=== PATIENT | female | born 1960 | race Caucasian/White ===

== ENCOUNTER → 2019-08-31 11:15 | Outpatient (BNVA) | payer BC, SELFPAY | PROVIDERS: Family Provider Family Medicine; PCP Family Medicine; Visit Provider Anesthesiology | DX: G89.29 Other chronic pain (principal); M54.5 Low back pain; M50.90 Cervical disc disorder, unspecified, unspecified cervical region; M79.651 Pain in right thigh; M79.652 Pain in left thigh; Z79.891 Long term (current) use of opiate analgesic | CPT/HCPCS: 99214 ==

== ENCOUNTER → 2019-10-30 12:11 | Outpatient (BNVA) | payer BC, SELFPAY | PROVIDERS: Family Provider Family Medicine; PCP Family Medicine; Visit Provider Psychiatry & Neurology Neurology | DX: G47.411 Narcolepsy with cataplexy (principal); G47.33 Obstructive sleep apnea (adult) (pediatric); G43.909 Migraine, unspecified, not intractable, without status migrainosus | CPT/HCPCS: 99213 ==

== ENCOUNTER 2020-01-03 20:00 | Outpatient (CLI) | payer BC, SELFPAY | END 2020-01-04 06:00 | disposition home or self-care (01) | LOC: SLEEP 01-04 09:44 | PROVIDERS: Family Provider Family Medicine; PCP Family Medicine; Visit Provider Psychiatry & Neurology Neurology | DX: G47.33 Obstructive sleep apnea (adult) (pediatric) (principal); G47.419 Narcolepsy without cataplexy | CPT/HCPCS: 95811 ==

== ENCOUNTER → 2020-02-01 12:53 | Outpatient (BNVA) | payer BC, SELFPAY | PROVIDERS: Family Provider Family Medicine; PCP Family Medicine; Visit Provider Psychiatry & Neurology Neurology | DX: G47.419 Narcolepsy without cataplexy (principal); G47.33 Obstructive sleep apnea (adult) (pediatric); G43.909 Migraine, unspecified, not intractable, without status migrainosus | CPT/HCPCS: 99213 ==

== ENCOUNTER → 2020-02-08 14:00 | Outpatient (BNVA) | payer BC, SELFPAY | PROVIDERS: Family Provider Family Medicine; PCP Family Medicine; Visit Provider Nurse Practitioner | DX: G89.29 Other chronic pain (principal); M54.41 Lumbago with sciatica, right side; M54.42 Lumbago with sciatica, left side; M25.562 Pain in left knee; T14.90XA Injury, unspecified, initial encounter; X58.XXXA Exposure to other specified factors, initial encounter; Z79.891 Long term (current) use of opiate analgesic | CPT/HCPCS: 99214 ==

== ENCOUNTER 2020-02-12 08:17 | Outpatient (CLI) | payer BC, SELFPAY ==
--- NOTE | 2020-02-12 08:00 | XRR_ITS ---
PROCEDURE INFORMATION: Exam: XR Left Knee Exam date and time: 02/12/2020 8:22 AM Age: 60 years old Clinical indication: Patient HX: Twisted left knee while standing in water, C/O pain x 1 month; Additional info: Pain left knee TECHNIQUE: Imaging protocol: XR Left knee. Views: 3 views. COMPARISON: No relevant prior studies available. FINDINGS: Bones/joints: Unremarkable Soft tissues: Normal. XR/XR knee LT 3V* [id number] IMPRESSION: No acute findings.
== END 2020-02-12 08:18 | disposition home or self-care (01) ==
LOC: RADWPI 08:20
PROVIDERS: Family Provider Family Medicine; PCP Family Medicine; Visit Provider Nurse Practitioner
DX: M25.562 Pain in left knee (principal)
CPT/HCPCS: 73562

== ENCOUNTER → 2020-04-17 10:56 | Outpatient (BNVA) | payer BC, SELFPAY | PROVIDERS: Family Provider Family Medicine; PCP Family Medicine; Visit Provider Nurse Practitioner | DX: G89.29 Other chronic pain (principal); M54.41 Lumbago with sciatica, right side; M54.42 Lumbago with sciatica, left side; M25.562 Pain in left knee; M50.90 Cervical disc disorder, unspecified, unspecified cervical region; T14.90XA Injury, unspecified, initial encounter; X58.XXXA Exposure to other specified factors, initial encounter; Z79.891 Long term (current) use of opiate analgesic | CPT/HCPCS: 99214 ==

== ENCOUNTER → 2020-06-13 10:56 | Outpatient (BNVA) | payer BC, SELFPAY | PROVIDERS: Family Provider Family Medicine; PCP Family Medicine; Visit Provider Anesthesiology | DX: G89.29 Other chronic pain (principal); M54.42 Lumbago with sciatica, left side; M54.41 Lumbago with sciatica, right side; M50.90 Cervical disc disorder, unspecified, unspecified cervical region; Z79.891 Long term (current) use of opiate analgesic | CPT/HCPCS: 99213; 99214 ==

== ENCOUNTER → 2020-08-12 14:10 | Outpatient (BNVA) | payer OTHER, SELFPAY | PROVIDERS: Family Provider Family Medicine; PCP Family Medicine; Visit Provider Specialist | DX: G47.419 Narcolepsy without cataplexy (principal) | CPT/HCPCS: 99214 ==

== ENCOUNTER → 2020-08-21 09:09 | Outpatient (BNVA) | payer OTHER, SELFPAY | PROVIDERS: Family Provider Family Medicine; PCP Family Medicine; Visit Provider Nurse Practitioner | DX: G89.29 Other chronic pain (principal); M54.5 Low back pain; M50.90 Cervical disc disorder, unspecified, unspecified cervical region; M25.562 Pain in left knee; T14.90XA Injury, unspecified, initial encounter; X58.XXXA Exposure to other specified factors, initial encounter; Z79.891 Long term (current) use of opiate analgesic | CPT/HCPCS: 99213; 99214 ==

== ENCOUNTER → 2020-10-16 09:10 | Outpatient (BNVA) | payer OTHER, SELFPAY | PROVIDERS: Family Provider Family Medicine; PCP Family Medicine; Visit Provider Anesthesiology | DX: G89.29 Other chronic pain (principal); M50.90 Cervical disc disorder, unspecified, unspecified cervical region; M54.5 Low back pain; Z79.891 Long term (current) use of opiate analgesic; Z79.1 Long term (current) use of non-steroidal anti-inflammatories (NSAID) | CPT/HCPCS: 99214 ==

== ENCOUNTER → 2020-12-24 08:25 | Outpatient (BNVA) | payer MEDICARE, SELFPAY | PROVIDERS: Family Provider Family Medicine; PCP Family Medicine; Visit Provider Specialist | DX: G47.419 Narcolepsy without cataplexy (principal) | CPT/HCPCS: 99213 ==

== ENCOUNTER → 2020-12-26 10:19 | Outpatient (BNVA) | payer MEDICARE, SELFPAY | PROVIDERS: Family Provider Family Medicine; PCP Family Medicine; Visit Provider Nurse Practitioner | DX: G89.29 Other chronic pain (principal); M54.5 Low back pain; M50.90 Cervical disc disorder, unspecified, unspecified cervical region; R20.2 Paresthesia of skin; Z98.1 Arthrodesis status; Z79.891 Long term (current) use of opiate analgesic | CPT/HCPCS: 99214 ==

== ENCOUNTER 2021-01-08 11:27 | Outpatient (CLI) | payer MEDICARE, SELFPAY ==
--- NOTE | 2021-01-08 11:38 | IR_ITS ---
WS: [id number] MYELOGRAM CERVICAL SPINE Fluoroscopic guided cervical myelogram CLINICAL INFORMATION: M50.90 - Cervical disc disorder, unspecified, unspecified... COMPARISON: None. TECHNIQUE: The procedure, including risks, benefits, and complications, were discussed with the patie nt who agreed to proceed. A timeout was performed to confirm correct patient, procedure, and site. Using sterile technique, the patient was prepped and draped in the usual sterile fashion. After admin istration of local anesthesia using 1% preservative-free lidocaine and using fluoroscopic guidance, a 22-gauge spinal needle was advanced into the subarachnoid space at the L4-5 level. Subsequently 12 c c of Omnipaque 300 was administered into the thecal sac. The needle was removed and hemostasis was ac hieved. Subsequently the table was tilted down and contrast flowed freely into the cervical spine. Sp ot fluoroscopic images were obtained. FLUOROSCOPIC TIME: minutes. Spot fluoroscopic images demonstrate postoperative changes anterior cervical fusion C4-C6 with interb cheo fusion grafts. Straightening of the normal cervical lordosis. Mild central canal stenosis C3-C4. Trace retrolisthesis C3 on C4. Normal C1-2 articulation. Cholecystectomy clips. No significant instab ility on flexion-extension. Please see CT myelogram report for additional detail. IR/IR myelogram sp cervical [id number] IMPRESSION: Uncomplicated cervical myelogram.Please see CT myelogram report for additional detail.
--- NOTE | 2021-01-08 11:38 | CT_ITS ---
WS: [id number] CT CERVICAL MYELOGRAM TECHNIQUE: CT of the cervical spine coronal and sagittal reformatted images post intrathecal administ ration of contrast. CLINICAL INFORMATION: M50.90 - Cervical disc disorder, unspecified, unspecified... COMPARISON: CT and myelogram January 23, 2015 DLP: 471.[address] scans at [facility] use at least one of these dose optimization techniques: automat ed exposure control; mA and/or kV adjustment per patient size (includes targeted exams where dose is matched to clinical indication); or iterative reconstruction. FINDINGS: Straightening of the normal cervical lordosis. Slight retrolisthesis C3 on C4. Postoperative changes anterior cervical fusion C4-C6 with interbody fusion grafts. Fusion appears solid with evidence of giuliana ny bridging beyond the confines of the grafts. No evidence of hardware loosening. C2-C3: No significant disc bulging. Spinal canal and foramen are patent. C3-C4: Slight retrolisthesis C3 on C4. Tiny shallow central protrusion. Mild central canal stenosis. Mild left and no significant right foraminal narrowing. C4-C5: Prior postoperative changes anterior interbody fusion. Mild right and no significant left fora freedom narrowing. Mild facet arthropathy. Spinal canal is patent. C5-C6: Postoperative changes anterior interbody cervical fusion. Mild to moderate bilateral bony fora freedom narrowing left greater than right. Mild facet arthropathy. Spinal canal is patent. C6-C7: Postoperative changes anterior cervical fusion. Moderate to severe left and no significant rig ht foraminal narrowing. Impingement on the exiting left C7 nerve root. Spinal canal is patent. C7-T1: Minimal anterolisthesis C7 on T1. Mild left and no significant right foraminal narrowing. Spin al canal is patent. Lung apices are well aerated. Mastoid air cells are well aerated. CT/CT cervical spine w con [id number] IMPRESSION: 1. Straightening of the normal cervical lordosis with prior anterior cervical fusion C4-C6. Hardware appears well seated. No evidence of hardware loosening. 2. Mild central canal stenosis C3-C4 with a tiny shallow central protrusion sl ightly progressed since 2014 3. Disc space narrowing C6-7 progressed since 2014 with moderate to severe lef t foraminal narrowing. Recommend correlation for LEFT C7 NERVE ROOT SYMPTOMS. 4. Mild to moderate bilateral C5-C6 bony foraminal narrowing with mild facet a rthropathy. 5. Mild left C7-T1 bony foraminal narrowing.
[2021-01-08] MEDS: iohexol 300 mg/mL 50 mL Btl INTRATHECA (13:59)
== END 2021-01-08 11:28 | disposition home or self-care (01) ==
PROVIDERS: PCP Family Medicine; Visit Provider Nurse Practitioner
DX: M50.90 Cervical disc disorder, unspecified, unspecified cervical region (principal); M47.812 Spondylosis without myelopathy or radiculopathy, cervical region; M48.02 Spinal stenosis, cervical region
CPT/HCPCS: 62302; 72040; 72126

== ENCOUNTER → 2021-01-14 08:48 | Outpatient (BNVA) | payer MEDICARE, SELFPAY | PROVIDERS: PCP Family Medicine; Referring Provider Nurse Practitioner; Visit Provider Orthopaedic Surgery | DX: G54.2 Cervical root disorders, not elsewhere classified (principal); M54.5 Low back pain; Z98.1 Arthrodesis status; M54.2 Cervicalgia | CPT/HCPCS: 72050; 72110 ==

== ENCOUNTER 2021-01-24 08:04 | Outpatient (CLI) | payer MEDICARE, SELFPAY ==
--- NOTE | 2021-01-24 08:09 | MR_ITS ---
WS: [id number] MRI LUMBAR SPINE NONCONTRAST HISTORY: LOW BACK PAIN COMPARISON: 07/25/[address] lumbar spine 01/06/2017 TECHNIQUE: Sagittal and axial multisequence imaging is submitted. Prior cervical fusion hardware is noted. Normal lumbar alignment with no compression fractures or marrow edema. Less than 2 mm anterolisthesis of L4. Disc spaces and vertebral body heights are well-preserved. Conus terminates normally at L1-2 disc level. L1-L2: Normal. L2-L3: Mild annular disc bulging contacting the L3 nerve roots with no displacement. Small amount of fluid in the LEFT facet joint. L3-L4: No significant stenosis. Very slight narrowing of the foramina. L4-L5: Mild annular disc bulging with moderate ligamentum flavum disease and facet arthritis. Mild en croachment into the thecal sac. Mild central and subarticular recess stenosis. There is very slight d isc contact on the undersurface of the RIGHT L4 nerve root. L5-S1: Slight disc bulging. No stenosis. Mild bilateral facet joint arthritis. MR/MR lumbar spine wo con* [id number] IMPRESSION: 1. Mild central and subarticular recess stenosis at L4-5 due to mild disc bulg ing. Minimal disc contact on the RIGHT L4 nerve root. 2. Mild facet joint arthritis from L2-3 to L5-S1. 3. No high-grade central or foraminal stenosis.
== END 2021-01-24 08:05 | disposition home or self-care (01) ==
PROVIDERS: PCP Family Medicine; Visit Provider Orthopaedic Surgery
DX: G89.29 Other chronic pain (principal); M54.5 Low back pain; M54.2 Cervicalgia; Z79.891 Long term (current) use of opiate analgesic
CPT/HCPCS: 62321; 72148; J1100

== ENCOUNTER → 2021-02-17 16:33 | Outpatient (BNVA) | payer MEDICARE, SELFPAY | PROVIDERS: PCP Family Medicine; Visit Provider Nurse Practitioner Family | DX: Z20.822 Contact with and (suspected) exposure to COVID-19 (principal); J06.9 Acute upper respiratory infection, unspecified | CPT/HCPCS: 87635 ==

== ENCOUNTER → 2021-02-20 09:17 | Outpatient (BNVA) | payer MEDICARE, SELFPAY | PROVIDERS: PCP Family Medicine; Visit Provider Nurse Practitioner | DX: G89.29 Other chronic pain (principal); M54.5 Low back pain; M50.90 Cervical disc disorder, unspecified, unspecified cervical region; Z98.1 Arthrodesis status; Z79.891 Long term (current) use of opiate analgesic | CPT/HCPCS: 99214 ==

== ENCOUNTER → 2021-03-25 09:03 | Outpatient (BNVA) | payer MEDICARE, SELFPAY | PROVIDERS: PCP Family Medicine; Visit Provider Specialist | DX: G47.419 Narcolepsy without cataplexy (principal) | CPT/HCPCS: 99214 ==

== ENCOUNTER → 2021-04-18 09:33 | Outpatient (BNVA) | payer MEDICARE, SELFPAY | PROVIDERS: PCP Family Medicine; Visit Provider Nurse Practitioner | DX: G89.29 Other chronic pain (principal); M54.5 Low back pain; M50.90 Cervical disc disorder, unspecified, unspecified cervical region; G43.909 Migraine, unspecified, not intractable, without status migrainosus; Z98.1 Arthrodesis status; Z79.891 Long term (current) use of opiate analgesic | CPT/HCPCS: 99213 ==

== ENCOUNTER 2021-05-19 21:09 | Emergency (ER) | payer MEDICARE, SELFPAY ==
--- NOTE | 2021-05-19 21:12 | ECG_ITS ---
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 Measurements Intervals [place] Rate: 71 P: 72 AK: 146 QRS: 46 QRSD: 88 T: 48 QT: 381 QTc: 414 Interpretive Statements SINUS RHYTHM No previous ECG available for comparison Electronically Signed On 05-19-2021 23:51:46 CDT by Celestine Morris M.D. [id number]
--- NOTE | 2021-05-19 21:12 | XRR_ITS ---
PROCEDURE INFORMATION: Exam: XR Chest Exam date and time: 05/19/2021 9:12 PM Age: 61 years old Clinical indication: Sternal or substernal pain; Patient HX: Cp x 2days TECHNIQUE: Imaging protocol: XR of the chest. Views: 1 view. Total images: 1 COMPARISON: CR XR cervical spine 4-5V [id number] 01/14/2021 8:55 AM FINDINGS: Lungs: No visible active interstitial or alveolar airspace disease. Pleural spaces: Unremarkable. No pleural effusion. No pneumothorax. Heart/Mediastinum: Unremarkable. No cardiomegaly. Bones/joints: Previous cervical fusion. XR/XR chest 1V portable [id number] IMPRESSION: Nonacute. Radiation Dose CTDIVOL = (mGy): DLP = (mGy-cm)
[2021-05-19 21:20] VITALS: BP 164/104; PULSE 71; RESP 18; TEMP 36.3; O2SAT 100; BMI 30.4
--- NOTE | 2021-05-19 21:47 | W.ED.CHESTPA ---
HPI - Chest Pain General: Chief Complaint: Chest Pain Stated Complaint: chest pain x 2 days, reaction to meds Time Seen by Provider: 05/19/21 21:35 Source: patient Mode of arrival: ambulatory Limitations: no limitations History of Present Illness: HPI narrative: 61-year-old female who states she has been having intermittent chest pain since Wednesday. States pains been a pressure type pain center of her chest some slight dyspnea. She denies any worsening improving factors. States she has started a medicine she thinks she may be having a reaction to she started a little over 10 days ago for sleeping. No history of heart disease she does have a history of high blood pressure denies history of cholesterol problems she is not a smoker. States her pain currently is a 4 out of 10 denies any worsening improving factors. Associated symptoms: Reports dyspnea; Deny abdominal pain, fever(s), nausea or vomiting Review of Systems Const: Denies: fever(s), chills, body aches or change in appetite Eyes: Denies: blurry vision or eye discomfort ENMT: Denies: throat pain or dental pain Card: Reports: chest pain Resp: Reports: dyspnea GI: Denies: abdominal pain, nausea, vomiting or diarrhea : Denies: dysuria Musc: Denies: neck pain or back pain Skin/Breast: Denies: rash Neuro: Denies: headache(s) Psych: Denies: depression Arcadio/Lymph: Denies: easy bruising All/Imm: Denies: urticaria PFSH ED PFSH: Medical History Cervical disc disease Chronic lumbosacral pain Encounter for long-term use of opiate analgesic Opioid contract exists Surgical History H/O neck surgery Fusion H/O tubal ligation History of hysterectomy Family History Other COPD (chronic obstructive pulmonary disease) Cancer Hypertension Social History Smoking and tobacco status: never smoked Second hand smoke exposure: No Alcohol intake: never History of recent travel: No Physical Exam Const: COMMON NORMALS: no acute distress, patient oriented x3 and healthy appearing HENMT: COMMON NORMALS: normocephalic and atraumatic HEAD & SCALP: normocephalic and atraumatic Eye: COMMON NORMALS: Equal, round and reactive pupils present and EOMs intact bilaterally PUPIL: Yes Equal, round and reactive pupils present Neck/C-Spine: COMMON NORMALS: full ROM and supple Chest: COMMONS NORMALS: normal inspection of the chest and normal palpation of entire chest wall Resp: COMMON NORMALS: normal respiratory effort, No retractions, No use of accessory muscles and clear to auscultation bilaterally AUSCULTATION: clear to auscultation bilaterally Cardio: COMMON NORMALS: regular rate, regular rhythm and No murmurs present (Cardio) RATE: regular rate RHYTHM: regular rhythm GI: COMMON NORMALS: Normal to inspection, nondistended, normoactive bowel sounds present, Soft to palpation, non-tender and no masses PALPATION: Yes Soft to palpation Extremity: COMMON NORMALS: normal to inspection and full ROM Neuro: COMMON NORMALS: patient oriented x3, moves all extremities and no focal motor deficits Psych: COMMON NORMALS: mental status grossly normal, Normal thought process present and cooperative THOUGHT PROCESS: Normal thought process present Skin: COMMON NORMALS: no rashes or lesions noted and no wounds GENERAL SKIN EXAM: no rashes or lesions noted Course Vital Signs: Vital signs: Vital Signs Temperature 97.4 F L 05/19/21 21:20 Pulse Rate 61 05/19/21 23:22 Respiratory Rate 18 05/19/21 23:22 Blood Pressure 136/80 05/19/21 23:22 Pulse Oximetry 95 05/19/21 23:22 MDM - Chest Pain MDM Narrative: Medical decision making narrative: Patient presents with chest pains atypical in nature. Troponins and D-dimer are both negative she has no signs of acute coronary syndrome. She is to stop her medicine she has an appointment scheduled this week. She is to follow-up with her PCP as scheduled return if worsening she understands agrees to plan. Lab Data: Labs: Lab Results 05/19/21 05/19/21 05/19/21 21:49 21:49 21:49 WBC 5.8 10^3/uL 10^3/ uL (4.0-10.0) RBC 4.38 10^6/uL 10^6 /uL (4.1-5.3) Hgb 13.4 g/dL g/dL (11.5-15.3) Hct 41.8 % % (37.0-47.0) MCV 95.4 fl fl (81-99) MCH 30.6 pg pg (28.0-34.0) MCHC 32.1 g/dL g/dL (30.0-36.0) RDW 13.2 % % (12.1-15.1) Plt Count 181 10^3/cmm 10^3 /cmm (130-400) MPV 9.6 fL fL (7.4-10.4) Neut % (Auto) 53.6 % % Lymph % (Auto) 31.9 % % Fisher % (Auto) 11.6 % % Eos % (Auto) 1.7 % % Baso % (Auto) 1.0 % % Neut # (Auto) 3.11 10^3/uL 10^3 /uL (1.8-7.7) Lymph # (Auto) 1.9 10^3/uL 10^3/ uL (0.8-4.8) Fisher # (Auto) 0.7 10^3/uL 10^3/ uL (0.2-0.9) Eos # (Auto) 0.1 10^3/uL 10^3/ uL (0.0-0.8) Baso # (Auto) 0.1 10^3/uL 10^3/ uL (0.0-0.1) Nucleated RBC % (a uto) 0 % % Nucleated RBCs # 0.0 /100WBC /100W BC D-Dimer Sodium 141 mmol/L mmol/L (136-145) Potassium 4.3 mmol/L mmol/L (3.5-5.1) Chloride 104 mmol/L mmol/L (98-107) Carbon Dioxide 29 mmol/L mmol/L (22-29) Anion Gap 12.3 (5-19) BUN 19 mg/dL mg/dL (8-23) Creatinine 1.1 mg/dL H mg/dL (0.5-0.9) GFR Calculation 50.5 mL/min L mL/ min (90-130) Glucose 87 mg/dL mg/dL (65-115) Calculated Osmolal ity 294 mOsm/kg mOsm/ kg (285-295) Calcium 9.7 mg/dL mg/dL (8.5-10.5) Total Bilirubin 0.3 mg/dL mg/dL (0.15-1.2) AST 11 U/L U/L (0-32) ALT 11 U/L U/L (0-33) Alkaline Phosphata se 80 IU/L IU/L (35-105) Troponin T Baselin e 6 ng/L ng/L (0-10) Troponin T 120 Min [place] Delta Troponin T Total Protein 7.3 g/dL g/dL (6.6-8.7) Albumin 4.3 g/dL g/dL (3.5-5.2) Globulin 3.0 g/dL g/dL (1.3-4.6) 05/19/21 05/19/21 21:49 23:29 WBC RBC Hgb Hct MCV MCH MCHC RDW Plt Count MPV Neut % (Auto) Lymph % (Auto) Fisher % (Auto) Eos % (Auto) Baso % (Auto) Neut # (Auto) Lymph # (Auto) Fisher # (Auto) Eos # (Auto) Baso # (Auto) Nucleated RBC % (a uto) Nucleated RBCs # D-Dimer 0.39 ug/mIFEU ug/ mIFEU (0-0.59) Sodium Potassium Chloride Carbon Dioxide Anion Gap BUN Creatinine GFR Calculation Glucose Calculated Osmolal ity Calcium Total Bilirubin AST ALT Alkaline Phosphata se Troponin T Baselin e Troponin T 120 Min [place] 6.00 ng/L ng/L (0-10) Delta Troponin T 0 ABS# ABS# (0-10) Total Protein Albumin Globulin Imaging Data^: CXR: Attestation: I personally reviewed and interpreted this imaging study as follows: My impression: no acute abnormality EKG Data^: EKG 1: Attestation: I personally reviewed and interpreted this EKG as follows: EKG interpretation date: 05/19/21 EKG interpretation time: 21:18 Interpretation: nsr hr [address] or t wave abnormalities qrs 88 qtc 403 Discharge Plan Discharge Patient Disposition: Home Clinical Impression: Chest pain Qualifiers: Chest pain type: unspecified Qualified Code(s): R07.9 - Chest pain, unspecified Condition: Stable Prescriptions: No Action hydrochlorothiazide 25 mg tablet 25 mg PO DAILY RF: 0 Excedrin Migraine 250-250-65 mg tablet 1 tab PO Q6H PRNRF: 0 gabapentin 600 mg tablet 600 mg PO TID 90 Days Qty: 270 RF: 1 meloxicam [Mobic] 15 mg tablet 15 mg PO DAILY 90 Days Qty: 90 RF: 1 tizanidine 4 mg tablet 4 mg PO TID PRN (Reason: muscle spasticity) 90 Days Qty: 270 RF: 1 Xyrem 500 mg/mL solution See Rx Instructions PO BID Qty: 180 RF: 2 hydrocodone-acetaminophen 10-325 mg tablet 1 tab PO QID PRN (Reason: pain) 30 Days Qty: 120 RF: 0 hydrocodone-acetaminophen 10-325 mg tablet 1 tab PO Q6H PRN (Reason: pain) 30 Days Qty: 120 RF: 0 venlafaxine 75 mg tablet 75 mg PO BID Qty: 180 RF: 3 topiramate [Topamax] 100 mg tablet 100 mg PO BID Qty: 120 RF: 2 propranolol 80 mg capsule,extended release 24 hr 80 mg PO DAILY Qty: 90 RF: 3 pitolisant 17.8 mg tablet 35.6 mg PO DAILY Qty: 60 RF: 5 methylphenidate HCl [Concerta] 54 mg tablet extended release 24hr 54 mg PO DAILY 30 Days Qty: 30 RF: 0 Discharge Orders: Discharge ED (Routine); Ordered 05/20/21 Ordered By: Reed Ríos Referrals: Kyle Jenkins MD [Primary Care Provider] - 1-3 days Discharge Diet: Advance as tolerated Discharge Activity: Resume usual activity Patient Instructions: Chest Pain (ED) Coding Level of Care Code ED 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
[2021-05-19 22:00] LABS: Basophils # 0.1 10^3/uL (0.0-0.1); Eosinophils # 0.1 10^3/uL (0.0-0.8); Eosinophils % 1.7 %; Hematocrit 41.8 % (37.0-47.0); Hemoglobin 13.4 g/dL (11.5-15.3); Lymphocytes # 1.9 10^3/uL (0.8-4.8); Lymphocytes % 31.9 %; Mean Corpuscular HGB Conc 32.1 g/dL (30.0-36.0); Mean Corpuscular Hemoglobin 30.6 pg (28.0-34.0); Mean Corpuscular Volume 95.4 fl (81-99); Mean Platelet Volume 9.6 fL (7.4-10.4); Monocytes # 0.7 10^3/uL (0.2-0.9); Monocytes % 11.6 %; Neutrophils # 3.11 10^3/uL (1.8-7.7); Neutrophils % 53.6 %; Nucleated Red Blood Cells % 0 %; Platelet Count 181 10^3/cmm (130-400); Red Blood Count 4.38 10^6/uL (4.1-5.3); Red Cell Distribution Width 13.2 % (12.1-15.1); White Blood Count 5.8 10^3/uL (4.0-10.0)
[2021-05-19 22:05] VITALS: RESP 20; O2SAT 95
[2021-05-19] MEDS: morphine 4 mg/mL SDV 1 mL IVP (22:05)
[2021-05-19] MEDS: ondansetron 2 mg/ML SDV 2 mL 4 MG IVP (22:06)
[2021-05-19 22:11] VITALS: BP 130/70; PULSE 82; RESP 18; O2SAT 95
[2021-05-19 22:14] LABS: D Dimer 0.39 ug/mIFEU (0-0.59)
[2021-05-19 22:17] LABS: Troponin(5th) Baseline 6 ng/L (0-10)
[2021-05-19 22:18] LABS: Alanine Aminotransferase 11 U/L (0-33); Albumin Level 4.3 g/dL (3.5-5.2); Alkaline Phosphatase 80 IU/L (35-105); Anion Gap 12.3 (5-19); Aspartate Amino Transferase 11 U/L (0-32); Blood Urea Nitrogen 19 mg/dL (8-23); Calcium 9.7 mg/dL (8.5-10.5); Carbon Dioxide 29 mmol/L (22-29); Chloride 104 mmol/L (98-107); Glomerular Filtration Rate 50.5 mL/min (90-130); Glucose 87 mg/dL (65-115); Osmolality Calculated 294 mOsm/kg (285-295); Potassium 4.3 mmol/L (3.5-5.1); Sodium 141 mmol/L (136-145); Total Bilirubin 0.3 mg/dL (0.15-1.2); Total Protein 7.3 g/dL (6.6-8.7)
[2021-05-19 23:22] VITALS: BP 136/80; PULSE 61; RESP 18; O2SAT 95
[2021-05-20 00:09] LABS: Troponin 5 2HR Delta 0 ABS# (0-10)
[2021-05-20 00:41] VITALS: BP 130/80; PULSE 82; RESP 18; O2SAT 95
== END 2021-05-20 00:45 | disposition home or self-care (01) ==
PROVIDERS: Emergency Provider Emergency Medicine; PCP Family Medicine
DX: R07.89 Other chest pain (principal); Z79.891 Long term (current) use of opiate analgesic
CPT/HCPCS: 36415; 71045; 80053; 84484; 85025; 85378; 93005; 96374; 96375; 99284; J2270; J2405

== ENCOUNTER → 2021-06-10 10:49 | Outpatient (BNVA) | payer MEDICARE, SELFPAY | PROVIDERS: PCP Family Medicine; Visit Provider Specialist | DX: G47.411 Narcolepsy with cataplexy (principal) | CPT/HCPCS: 99214 ==

== ENCOUNTER → 2021-06-20 09:46 | Outpatient (BNVA) | payer MEDICARE, SELFPAY | PROVIDERS: PCP Family Medicine; Visit Provider Anesthesiology | DX: G89.29 Other chronic pain (principal); M54.50 Low back pain, unspecified; M50.90 Cervical disc disorder, unspecified, unspecified cervical region; Z98.1 Arthrodesis status; Z79.1 Long term (current) use of non-steroidal anti-inflammatories (NSAID); Z79.891 Long term (current) use of opiate analgesic | CPT/HCPCS: 99214 ==

== ENCOUNTER → 2021-09-02 11:11 | Outpatient (BNVA) | payer MEDICARE, SELFPAY | PROVIDERS: PCP Family Medicine; Visit Provider Anesthesiology | DX: G89.29 Other chronic pain (principal); M50.90 Cervical disc disorder, unspecified, unspecified cervical region; M54.50 Low back pain, unspecified; Z79.891 Long term (current) use of opiate analgesic | CPT/HCPCS: 99214 ==

== ENCOUNTER → 2021-09-08 09:07 | Outpatient (BNVA) | payer MEDICARE, SELFPAY | PROVIDERS: PCP Family Medicine; Visit Provider Specialist | DX: G47.411 Narcolepsy with cataplexy (principal); G43.909 Migraine, unspecified, not intractable, without status migrainosus; G47.33 Obstructive sleep apnea (adult) (pediatric); M50.90 Cervical disc disorder, unspecified, unspecified cervical region; M54.50 Low back pain, unspecified; G89.29 Other chronic pain; Z98.1 Arthrodesis status; Z79.891 Long term (current) use of opiate analgesic | CPT/HCPCS: 99205 ==

== ENCOUNTER → 2021-12-11 14:40 | Outpatient (BNVA) | payer MEDICARE, SELFPAY | PROVIDERS: PCP Family Medicine; Visit Provider Specialist | DX: G47.419 Narcolepsy without cataplexy (principal); G43.009 Migraine without aura, not intractable, without status migrainosus; G31.84 Mild cognitive impairment of uncertain or unknown etiology; Z79.899 Other long term (current) drug therapy | CPT/HCPCS: 99214 ==

== ENCOUNTER → 2022-03-16 15:25 | Outpatient (BNVA) | payer MEDICARE, SELFPAY | PROVIDERS: PCP Family Medicine; Visit Provider Specialist | DX: G47.419 Narcolepsy without cataplexy (principal); G31.84 Mild cognitive impairment of uncertain or unknown etiology | CPT/HCPCS: 99214 ==

== ENCOUNTER → 2022-06-16 09:18 | Outpatient (BNVA) | payer MEDICARE, SELFPAY | PROVIDERS: PCP Family Medicine; Visit Provider Specialist | DX: G47.419 Narcolepsy without cataplexy (principal); R63.5 Abnormal weight gain; T50.905A Adverse effect of unspecified drugs, medicaments and biological substances, initial encounter; G43.019 Migraine without aura, intractable, without status migrainosus; Z68.35 Body mass index [BMI] 35.0-35.9, adult; Z79.891 Long term (current) use of opiate analgesic | CPT/HCPCS: 99214 ==

== ENCOUNTER → 2022-10-13 09:46 | Outpatient (BNVA) | payer MEDICARE, SELFPAY | PROVIDERS: PCP Family Medicine; Visit Provider Specialist | DX: G47.419 Narcolepsy without cataplexy (principal); G43.909 Migraine, unspecified, not intractable, without status migrainosus; Z79.899 Other long term (current) drug therapy | CPT/HCPCS: 99213 ==

== ENCOUNTER → 2023-01-12 12:20 | Outpatient (BNVA) | payer MEDICARE, SELFPAY | PROVIDERS: PCP Family Medicine; Visit Provider Specialist | DX: G47.419 Narcolepsy without cataplexy (principal) | CPT/HCPCS: 99214 ==

== ENCOUNTER 2023-01-25 13:31 | Outpatient (CLI) | payer MEDICARE, SELFPAY ==
--- NOTE | 2023-01-25 13:36 | XRR_ITS ---
PROCEDURE INFORMATION: Exam: XR Right Knee Exam date and time: 01/25/2023 1:41 PM Age: 62 years old Clinical indication: Injury or trauma; Fall; Blunt trauma; Knee; Right; Injury date: 01/22/23; Additional info: Fall/ pain TECHNIQUE: Imaging protocol: Radiologic exam of the right knee. Views: 3 views. COMPARISON: No relevant prior studies available. FINDINGS: Bones/joints: Normal. Soft tissues: Normal. XR/XR knee RT 3V* [id number] IMPRESSION: No acute findings.
== END 2023-01-25 13:32 | disposition home or self-care (01) ==
LOC: RAD 13:34
PROVIDERS: PCP Family Medicine; Visit Provider Family Medicine
DX: M25.561 Pain in right knee (principal)
CPT/HCPCS: 73562

== ENCOUNTER 2023-02-02 13:35 | Outpatient (CLI) | payer MEDICARE, SELFPAY ==
--- NOTE | 2023-02-02 15:15 | MR_ITS ---
WS: [id number] MRI RIGHT KNEE NONCONTRAST TECHNIQUE: Axial PD, coronal PD fat sat, coronal PD, sagittal PD, and sagittal PD fat-sat images obta ined. CLINICAL INFORMATION: knee injury/ severe pain/ bruising COMPARISON: None. FINDINGS: Diffuse soft tissue edema with mixed signal lobulated hematoma in the prepatellar and infrapatellar s oft tissues. Small suprapatellar effusion. Distal quadriceps and patella tendons are intact. Normal A CL and PCL. Moderate tricompartmental arthritis. Moderate chondromalacia patella. No subchondral edema. Medial an d lateral patellar retinaculum are intact. Normal popliteal fossa. Medial and lateral collateral liga ments appear intact. Lateral meniscus is intact. Radial tear involving the medial meniscus with blunting of the anterior h orn. Slight peripheral extrusion of the medial meniscus. MR/MR knee RT wo con* [id number] IMPRESSION: 1. Diffuse lobulated subcutaneous mixed signal hematoma in the prepatellar and infrapatellar soft tissues. 2. No acute appearing patellar fractures. 3. Normal ACL and PCL. 4. Radial type tear involving the medial meniscus with blunting of the posteri or horn. Slight peripheral extrusion of the medial meniscus. 5. Moderate tricompartmental chondromalacia. 6. No other acute findings. Outbridge grading: grade III: partial-thickness cartilage loss with focal ulcer ation
== END 2023-02-02 13:36 | disposition home or self-care (01) ==
PROVIDERS: PCP Family Medicine; Visit Provider Family Medicine
DX: S83.241A Other tear of medial meniscus, current injury, right knee, initial encounter (principal); S80.01XA Contusion of right knee, initial encounter; X58.XXXA Exposure to other specified factors, initial encounter; M94.261 Chondromalacia, right knee; M25.561 Pain in right knee
CPT/HCPCS: 73721

== ENCOUNTER → 2023-02-16 14:45 | Outpatient (BNVA) | payer MEDICARE, SELFPAY | PROVIDERS: PCP Family Medicine; Referring Provider Family Medicine; Visit Provider Student in an Organized Health Care Education/Training Program | DX: S83.241A Other tear of medial meniscus, current injury, right knee, initial encounter (principal); M79.89 Other specified soft tissue disorders; S80.01XA Contusion of right knee, initial encounter; W10.1XXA Fall (on)(from) sidewalk curb, initial encounter | CPT/HCPCS: 99204 ==

== ENCOUNTER 2023-02-17 14:50 | Outpatient (CLI) | payer MEDICARE, SELFPAY ==
--- NOTE | 2023-02-17 15:00 | USCV_ITS ---
Kenneth Kelley Age: 63 Gender: F : 1960 Exam Date: 02/17/2023 15:11 Ordering Phys: Alec Alatorre DO Technologist: [place] [facility] [place]: normal [place] PROCEDURES: Venous duplex imaging was performed in only the right lower extremity. On the right side, the common femoral, superficial femoral, profunda femoral, popliteal, posterior tibial, greater saphenous veins and the peroneal trunk were identified and interrogated in the standard fashion. These veins were found to be easily compressible with spontaneous blood flow. No evidence of insufficiency or thrombus noted. CONCLUSIONS No evidence of right lower extremity DVT. Sulaiman Garcia MD (Electronically Signed) Final Date: 17 February 2023 16:32 S
== END 2023-02-17 14:51 | disposition home or self-care (01) ==
LOC: RAD 14:55
PROVIDERS: PCP Family Medicine; Visit Provider Student in an Organized Health Care Education/Training Program
DX: M79.89 Other specified soft tissue disorders (principal)
CPT/HCPCS: 93971

== ENCOUNTER → 2023-02-25 10:40 | Outpatient (BNVA) | payer MEDICARE, SELFPAY | PROVIDERS: PCP Family Medicine; Visit Provider Clinical Nurse Specialist Adult Health | DX: Z01.818 Encounter for other preprocedural examination (principal) | CPT/HCPCS: 80048; 85025 ==

== ENCOUNTER 2023-03-01 09:38 | Day surgery (SDC) | payer MEDICARE, SELFPAY ==
[2023-02-26 09:25] VITALS: BMI 36.2
[2023-03-01] VITALS (7 sets, daily range): BP systolic 137–166; BP diastolic 84–105; PULSE 71–84; RESP 14–20; TEMP 36.1–36.4; O2SAT 92–100
--- NOTE | 2023-03-01 10:25 | ANES.PREANE2 ---
Pre-Anesthetic Assessment Height/Weight: Height 1.63 m Weight 95.708 kg Temp Pulse Resp BP Pulse Ox O2 Del Method 97.1 F L 84 16 166/103 94 Room Air, CPAP 03/01/23 09:46 03/01/23 09:46 03/01/23 09:46 03/01/23 09:46 03/01/23 09:46 03/01/23 10:06 Preop Diagnosis: Right knee medial meniscus tear and prepatellar hematoma Operation Date: 03/01/23 11:10 Proposed Procedures p RIGHT KNEE HEMATOMA EVACUATION /DIAGNOSTIC AND SURGICAL ARTHROSCOPY WITH PARTIAL MEDIAL MENISCECTOMY 66921, 78116,S83.241A(Right) - Alec Alatorre DO s Knee Arthroscopy(Right) - Alec Alatorre DO Familial anesthetic complications: None Was Beta Wallace taken within 24 hours: N/A Was Clonidine taken within 24 hours: N/A Last intake: Intake Last Liquid Date 02/28/23 Last Liquid Time 21:00 Last Solid Date 02/28/23 Last Solid Time 21:00 Social No alcohol and No tobacco Exam alert, oriented x 3, clear to auscultation bilaterally and regular rate & rhythm Airway Mallampati: Class II Dentition: full Pulmonary Sleep Apnea CV/HEM Hypertension Metabolic Morbid Obesity Neuropsych Cerebrovascular Accident narcolepsy Anesthetic Plan ASA status: 3 Anesthesia: General and Regional (specify below) Risk of > 500 ml blood loss (7ml/kg in children): No Medications/Allergies Home Medications Medication Instructions Recorded Confirmed Last Taken Type fmqsddk-nbaxjcyhpbdud-eelkzzto 250 1 tab PO Q6H PRN Headache 08/31/19 03/01/23 1 Week Ago History mg-250 mg-65 mg tablet (Excedrin ~02/22/23 Migraine) propranolol 80 mg capsule,24 80 mg PO DAILY #90 caps 03/16/22 03/01/23 03/01/23 Rx hr,extended release venlafaxine 75 mg tablet 75 mg PO BID #180 tabs 03/16/22 02/26/23 02/26/23 Rx omeprazole 20 mg tablet,delayed 20 mg PO DAILY #30 tabs 09/24/22 03/01/23 03/01/23 Rx release fluorouracil 5 % topical cream 1 applic topical BID 2 weeks #40 10/19/22 03/01/23 2 Weeks Ago Rx (Efudex) grams ~02/15/23 methylphenidate HCl 36 mg 36 mg PO DAILY 30 days #30 tabs 01/12/23 03/01/23 02/27/23 Rx tablet,extended release 24 hr crutches #2 ea 02/04/23 02/25/23 Unknown Rx solriamfetol 150 mg tablet (Sunosi) 150 mg PO ONCE 90 days #90 tabs 02/06/23 03/01/23 03/01/23 Rx gabapentin 600 mg tablet 600 mg PO TID 02/26/23 03/01/23 02/28/23 History pitolisant 17.8 mg tablet (Wakix) 17.8 mg PO PRN PRN neuro 02/26/23 03/01/23 Unknown History topiramate 100 mg tablet 50 mg PO DAILY 02/26/23 02/26/23 02/26/23 History Allergies Allergy/AdvReac Type Severity Reaction Status Date / Time No Known Allergies Allergy Verified 02/25/23 09:58 COUNT INCLUDES THE [facility] Anesthesia Medical History (Updated 02/25/23 @ 10:33 by Shaka Tiwari NP) Cervical disc disease Chronic lumbosacral pain Encounter for long-term use of opiate analgesic Essential hypertension Medial meniscus tear Narcolepsy takes ritalin and sunosi Opioid contract exists JAMAAL (obstructive sleep apnea) compliant with CPAP Persistent migraine aura with stroke self reports history of migraine stroke without forward air controller/air officer residual. Surgical History H/O neck surgery Fusion H/O tubal ligation History of hysterectomy Family History (Updated 02/25/23 @ 10:11 by Shaka Tiwari NP) Other COPD (chronic obstructive pulmonary disease) Cancer Hypertension Denies family history of Clotting disorder Anesthesia complication Bleeding disorder Social History Smoking and tobacco status: never smoked Second hand smoke exposure: No Alcohol intake: current Alcohol intake frequency: 0-2 Drinks per Day Alcohol type: wine Substance/Drug Use: never Data Anesthesia Cardiac Studies: No Data to Display
[2023-03-01] MEDS: sodium chloride 0.9% 1,000 ML 30 ML IV (10:32)
[2023-03-01] MEDS: acetaminophen 1,000 MG/100 ML PIGGYBACK 400 MG IV (10:33)
[2023-03-01] MEDS: ketorolac 30 mg/mL INJ IVP (10:34)
[2023-03-01] MEDS: scopolamine 1.5 Patch 1 PATCH TRANSDERMA (10:38)
[2023-03-01] MEDS: midazolam 1 mg/mL INJ 2 mL 2 MG IVP (10:38)
--- NOTE | 2023-03-01 10:58 | ANES.PROC ---
Anesthesia Procedures Procedure/Date: 03/01/23 Nerve Block ^: Nerve Block 1: Main Anesthesia: general anesthesia Time Out Performed: Yes Consent: requested by attending/covering physician, from patient, from other and risks and benefits reviewed Nerve block location: adductor canal (R) Anesthesia monitors applied: pulse oximetry, EKG, BP cuff and oxygen Nerve block position: supine Anesthetic Used: ropivicaine 0.5% (30 ml) Ultrasound used to: recognize landmarks and visualize and ID femerol nerve Nerve Stimulator Used?: No Interscalene/Femoral BLK: 4 stimuplex 21 g needle used for position and inplane approach, visualize local anesthetic spread and no vascular puncture identified Patient Tolerated Procedure: well Complications: none
--- NOTE | 2023-03-01 12:00 | P.HPUD_ITS ---
Surgery/Procedure H&P Update DATE OF PROCEDURE: March 01, 2023 DATE H&P PERFORMED: 02/16/23 CHANGES TO PREVIOUS DOCUMENTATION: None. No change in HPI from previous office visit on 02/16/2023. PREOP DIAGNOSIS: Right knee medial meniscus tear and prepatellar hematoma PRIMARY INDICATION FOR PROCEDURE: Right knee medial meniscus tear and prepatellar hematoma PLANNED PROCEDURE: Operation Date: 03/01/23 11:10 Proposed Procedures p RIGHT KNEE HEMATOMA EVACUATION /DIAGNOSTIC AND SURGICAL ARTHROSCOPY WITH P ARTIAL MEDIAL MENISCECTOMY 78789, 34481,S83.241A(Right) - Alec Alatorre DO s Knee Arthroscopy(Right) - Alec Alatorre, DO
[2023-03-01] MEDS: ceFAZolin 2,000 MG in sodium chloride 0.9% (plus) 50 ML 100 MG IV (12:32)
[2023-03-01] MEDS: lidocaine-epi 2% 20 mL INJ INJECTION (13:25)
[2023-03-01] MEDS: BUPivacaine 0.5% INJ 30 mL 20 ML INJECTION (13:26)
--- NOTE | 2023-03-01 14:04 | P.OP_ITS ---
Brief Operative Note Date of procedure: 03/01/23 Pre-op diagnosis: Right knee medial meniscus tear and right knee hematoma prep atellar Post-op diagnosis: same (And chondromalacia) Procedure Done: Right knee diagnostic and surgical arthroscopy with partial medial meniscectomy Right knee diagnostic and surgical arthroscopy with medial and patellofemoral compartment chondroplasty Right knee diagnostic and surgical arthroscopy with extensive synovectomy of medial lateral and patellofemoral compartments Right knee hematoma evacuation (8cmx 4cm x 1cm) Surgeon: Alec Alatorre Estimated blood loss (mL): 10 Complications: none Post-op Plan: Patient taken to PACU in stable condition recovering well pain controlled. Patient received appropriate discharge instructions as well as pain medication postoperatively. Was started on aspirin for blood clot prevention. Patient will be allowed range of motion as tolerated and weightbearing as tolerated to the right lower extremity. We will follow-up in the orthopedic office in 2 weeks. All questions answered. Condition: stable Disposition: same day Coding Level of Care Code Acute Code for Jaskaran Carias
--- NOTE | 2023-03-01 14:04 | PM.PACU ---
PACU note Narrative: Patient taken to PACU in stable condition recovering well pain controlled. Patient dressings on in place clean dry and intact toes warm well-perfused brisk cap refill less than 2 seconds patient is able to wiggle toes plantarflex and dorsiflex ankle sensations intact light touch distally. Distal pulses palpable. Exam: awake Disposition: discharged
--- NOTE | 2023-03-01 14:05 | P.OP_ITS ---
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 Right knee prepatellar hematoma Procedure done: Right?knee?diagnostic and surgical arthroscopy partial medial meniscectomy Right?knee?diagnostic and surgical arthroscopy with extensive synovectomy of the medial lateral and patellofemoral compartments Right?knee?diagnostic and surgical arthroscopy with medial and patellofemoral compartment chondroplasty4 Right knee hematoma evacuation (8cmx 4cm x 1cm) Surgeon: Alec Alatorre DO Estimated blood loss: 5 Tourniquet: No tourniquet was used IV fluids: See anesthesia record Complications: None Findings: See?operative report narrative Condition: stable Disposition: same day Brief History: Patient is a 63year-old female with right?knee?pain.? Patient has failed conservative treatment who has been worked up for right??knee?pain in the outpatient setting. MRI findings consistent with tear of the medial meniscus and a large prepatellar hematoma.. talked in the office about treatment?options patient would like to proceed with a right?knee?diagnostic and surgical arthroscopy with partial medial meniscectomy and hematoma evacuation.? Patient understand the ins and outs of the procedure the risk benefits complication alternatives to treatment?options.? Understanding risk of surgery they agree to proceed with surgical intervention.? Patient understand this may not provide patient with complete symptomatic relief of? pain as patient does have some underlying arthritis.? Understanding this and patient agree to proceed with surgical intervention all questions answered. Procedure: Patient seen and evaluated in the preoperative holding area.? Consent was reviewed and signed with patient.? Correct extremity was then marked.? Patient seen evaluated Anesthesia Department once cleared for surgery patient was taken back to the?operative suite.? Patient was transported onto the OR table in supine position.? All bony prominences well-padded patient was appropriate secured to the bed.? Once appropriately anesthetized a nonsterile tourniquet was applied to the right thigh.? The right lower extremity was then prepped and draped in standard orthopedic fashion.? Final timeout performed.? Patient received appropriate preoperative antibiotics. Patient received local anesthetic of lidocaine with epinephrine into the joint as well as around the portal sites.? No tourniquet was inflated A standard 2 portal vertical incision diagnostic and surgical arthroscopy of the right?knee?was performed in standard fashion.? Small stab incision made in the inferolateral portal introduced trocar and arthroscope into the suprapatellar pouch.? Suprapatellar pouch was subsequently visualized and found to have significant synovitis but no loose bodies.? Patient had noticeable significant inflamed infrapatellar fat pad and thickening hypertrophic within the patellofemoral compartment.? ?The medial gutter was free of loose bodies I then introduced the arthroscope into the medial compartment.? Within the medial compartment I then established my inferior medial working portal utilizing spinal needle outside in technique.? Once established I then visualized our articular cartilage of the medial compartment with a valgus stress.? Patient was found to have grade 3 chondromalacia throughout the medial compartment.? Next I inspected the meniscus.? With an arthroscopic probe was utilized to visual? all aspects of the meniscus.? Meniscal root was found to be intact.? Meniscus was found to be torn at the body to posterior horn junction.? I then subsequently introduced a basket forceps as well as arthroscopic shaver to perform a partial medial meniscectomy to stable meniscal tissue and then utilized a thermal wand to anneal the edges.? Next, I then performed a synovectomy of the medial compartment.? Given patient's chondromalacia there was areas of unstable articular cartilage and I subsequently performed a chondroplasty with arthroscopic shaver and thermal wand.? This completed medial compartment work. Next a introduced the arthroscope to the intercondylar notch.? PCL and ACL were intact. patient had significant thickening of the infrapatellar fat pad spanning into the medial and lateral compartments.? I then performed an extensive synovectomy with the arthroscopic shaver of the patellofemoral medial and lateral compartments as well as the intercondylar notch. Advance the scope into the retrocruciate space and no loose bodies were found. Next I introduced the arthroscope into the lateral compartment the lateral compartment was found to have grade 2 chondromalacia.? Lateral meniscus was found to be intact.? The root was intact.? Given the grade II chondromalacia there is no unstable cartilage pieces to perform chondroplasty.? This completed my work of the lateral compartment and then performed a synovectomy of the lateral compartment.? Next of the arthroscope was placed into the lateral gutter and this was free of loose bodies.? Finally I reintroduced the arthroscope into the patellofemoral compartment.? The patellofemoral was found to have grade 3 chondromalacia of the patellofemoral compartment.? At this point I utilized arthroscopic shaver as well as thermal wand to perform patellofemoral compartment chondroplasty to stable articular c artilage and subsequently performed extensive synovectomy of the patellofemoral compartment. This completed my work of the patellofemoral space.? I then switch my portal sites to the medial working portal.? Completed the rest of my synovectomy and the rest of my examination arthroscopy was normal. All fluid was suctioned from the joint.? ?All instruments were withdrawn.? I then subsequently given the palpable fluctuance and large inherent nature I then made a 4 cm midline incision directly over the hematoma. Immediately after dissecting through skin and subcutaneous tissue with dissection scissors encountered dark blood gelatinous hematoma formation I utilized a Yankauer suction as well as blunt dissection and mobilized over the fascia and joint capsule and evacuated the entire hematoma measuring 8 cm x 4 cm x 1 cm in size. Patient had excellent decompression of the space as well as hemostasis. Once the entirety of the hematoma was evacuated I then thoroughly irrigated the inci jos. Once again once hemostasis was obtained I then closed this in layered fashion of deep 2-0 Vicryl suture as well as nylon stitches for the skin. Portal sites were closed with interrupted nylon suture.? portal sites were then covered with with Xeroform 4 x 4's ABD Curlex and Robert wrap.? Patient was then subsequently awakened from anesthesia and taken to PACU in stable condition. Disposition: Patient taken to PACU in stable condition recovering well.? Will receive appropriate discharge structure as well as pain medication postoperatively as well as? DVT prophylaxis.we will have patient follow-up with us in the office in 2 weeks.? We will weightbearing as tolerated to the right lower extremity.? Patient understands and agrees with current plan.? All questions answered.
--- NOTE | 2023-03-01 14:14 | ANE.PACU2 ---
Inpatient post-anesthesia follow up: Airway intact: Yes Vital signs: Temperature 97.5 F Pulse Rate 84 Respiratory Rate 16 Blood Pressure 162/100 Pulse Oximetry 92 Oxygen Delivery Me thod Room Air Oxygen Flow Rate Fraction of Inspir ed Oxygen Hydration adequate: Yes Nausea and vomiting: Yes Pain level: 1 Mental status: Baseline
== END 2023-03-01 14:50 | disposition home or self-care (01) ==
PROVIDERS: PCP Family Medicine; Visit Provider Student in an Organized Health Care Education/Training Program
PROC: (CPT 27301; principal; 2023-03-01 11:00)
PROC: (CPT 29870; 2023-03-01 11:00)
PROC: (CPT 27301; 2023-03-01 11:00)
DX: S83.241A Other tear of medial meniscus, current injury, right knee, initial encounter (principal); S80.01XA Contusion of right knee, initial encounter; M22.41 Chondromalacia patellae, right knee; W19.XXXA Unspecified fall, initial encounter
CPT/HCPCS: 27301; 29881; J0131; J0690; J1100; J1885; J2250; J2405; J2704; J2795; J3010; J3490; J7030

== ENCOUNTER → 2023-03-16 14:22 | Outpatient (BNVA) | payer MEDICARE, SELFPAY | PROVIDERS: PCP Family Medicine; Visit Provider Student in an Organized Health Care Education/Training Program | DX: Z98.890 Other specified postprocedural states (principal) | CPT/HCPCS: 99024 ==

== ENCOUNTER 2023-03-19 07:29 | Outpatient (RCR) | payer MEDICARE, SELFPAY | END 2023-03-25 23:59 | disposition home or self-care (01) | LOC: SPT 07:29 | PROVIDERS: PCP Family Medicine; Visit Provider Student in an Organized Health Care Education/Training Program | DX: Z47.89 Encounter for other orthopedic aftercare (principal) | CPT/HCPCS: 97110; 97161 ==

== ENCOUNTER 2023-03-26 06:00 | Outpatient (RCR) | payer MEDICARE, SELFPAY | END 2023-04-24 23:59 | disposition home or self-care (01) | LOC: SPT 06:00 | PROVIDERS: PCP Family Medicine; Visit Provider Student in an Organized Health Care Education/Training Program | DX: Z98.890 Other specified postprocedural states (principal) | CPT/HCPCS: 97110 ==

== ENCOUNTER → 2023-03-30 08:40 | Outpatient (BNVA) | payer MEDICARE, SELFPAY | PROVIDERS: PCP Family Medicine; Visit Provider Specialist | DX: G47.419 Narcolepsy without cataplexy (principal); G43.019 Migraine without aura, intractable, without status migrainosus; G47.33 Obstructive sleep apnea (adult) (pediatric) | CPT/HCPCS: 99213 ==

== ENCOUNTER → 2023-04-20 10:00 | Outpatient (BNVA) | payer MEDICARE, SELFPAY | PROVIDERS: PCP Family Medicine; Visit Provider Student in an Organized Health Care Education/Training Program | DX: Z98.890 Other specified postprocedural states (principal) | CPT/HCPCS: 99024; 99213 ==

== ENCOUNTER 2023-04-25 06:00 | Outpatient (RCR) | payer MEDICARE, SELFPAY | END 2023-05-25 23:59 | disposition home or self-care (01) | LOC: SPT 06:00 | PROVIDERS: PCP Family Medicine; Visit Provider Student in an Organized Health Care Education/Training Program | DX: Z47.1 Aftercare following joint replacement surgery (principal); Z96.651 Presence of right artificial knee joint | CPT/HCPCS: 97110 ==

== ENCOUNTER 2023-05-17 11:11 | Outpatient (CLI) | payer MEDICARE, SELFPAY | END 2023-05-17 11:12 | disposition home or self-care (01) | LOC: SPT 11:12 | PROVIDERS: PCP Family Medicine; Visit Provider Physician Assistant | DX: Z47.89 Encounter for other orthopedic aftercare (principal); M25.561 Pain in right knee; Z98.890 Other specified postprocedural states | CPT/HCPCS: 97760; 99213; L1812 ==

== ENCOUNTER 2023-05-26 06:00 | Outpatient (RCR) | payer MEDICARE, SELFPAY | END 2023-06-24 23:59 | disposition home or self-care (01) | LOC: SPT 06:00 | PROVIDERS: PCP Family Medicine; Visit Provider Student in an Organized Health Care Education/Training Program | DX: Z98.890 Other specified postprocedural states (principal) | CPT/HCPCS: 97110 ==

== ENCOUNTER → 2023-06-22 13:56 | Outpatient (BNVA) | payer MEDICARE, SELFPAY | PROVIDERS: PCP Family Medicine; Visit Provider Physician Assistant | DX: Z98.890 Other specified postprocedural states (principal); M17.11 Unilateral primary osteoarthritis, right knee; M25.561 Pain in right knee | CPT/HCPCS: 20610; 99213; J7318 ==

== ENCOUNTER 2023-06-25 06:00 | Outpatient (RCR) | payer MEDICARE, SELFPAY | END 2023-07-25 23:59 | disposition home or self-care (01) | LOC: SPT 06:00 | PROVIDERS: PCP Family Medicine; Visit Provider Student in an Organized Health Care Education/Training Program | DX: Z98.890 Other specified postprocedural states (principal) | CPT/HCPCS: 97110 ==

== ENCOUNTER → 2023-06-29 09:20 | Outpatient (BNVA) | payer MEDICARE, SELFPAY | PROVIDERS: PCP Family Medicine; Visit Provider Specialist | DX: G47.419 Narcolepsy without cataplexy (principal) | CPT/HCPCS: 99213 ==

== ENCOUNTER 2023-07-26 06:00 | Outpatient (RCR) | payer MEDICARE, SELFPAY | END 2023-07-29 06:00 | disposition home or self-care (01) | LOC: SPT 06:00 | PROVIDERS: PCP Family Medicine; Visit Provider Student in an Organized Health Care Education/Training Program | DX: Z98.890 Other specified postprocedural states (principal) | CPT/HCPCS: 97110 ==

== ENCOUNTER → 2023-08-31 09:47 | Outpatient (BNVA) | payer MEDICARE, SELFPAY | PROVIDERS: PCP Family Medicine; Visit Provider Physician Assistant | DX: M23.304 Other meniscus derangements, unspecified medial meniscus, left knee; M17.0 Bilateral primary osteoarthritis of knee; Z98.890 Other specified postprocedural states | CPT/HCPCS: 20610; 73560; 73565; 99213; J3301 ==

== ENCOUNTER 2023-09-14 12:11 | Outpatient (CLI) | payer MEDICARE, SELFPAY ==
--- NOTE | 2023-09-14 12:16 | XRR_ITS ---
PROCEDURE INFORMATION: Exam: XR Chest Exam date and time: 09/14/2023 12:49 PM Age: 63 years old Clinical indication: Condition or disease; Lung condition and disease; Pneumonia TECHNIQUE: Imaging protocol: Radiologic exam of the chest. Views: 2 views. COMPARISON: CR XR chest 1V portable [id number] 05/19/2021 9:32 PM FINDINGS: Lungs: No significant active pathology. Pleural spaces: No pleural effusion or pneumothorax. Heart/Mediastinum: Unremarkable. Bones/joints: Prior ACDF. Intraperitoneal space: Right upper quadrant surgical clips noted. XR/XR chest 2V* [id number] IMPRESSION: No acute pathology or significant interval change.
== END 2023-09-14 12:12 | disposition home or self-care (01) ==
LOC: RAD 12:12
PROVIDERS: PCP Family Medicine; Visit Provider Family Medicine
DX: J18.9 Pneumonia, unspecified organism (principal)
CPT/HCPCS: 71046

== ENCOUNTER → 2023-10-06 15:49 | Outpatient (BNVA) | payer MEDICARE, SELFPAY | PROVIDERS: PCP Family Medicine; Visit Provider Specialist | DX: G47.419 Narcolepsy without cataplexy (principal) | CPT/HCPCS: 99214 ==

== ENCOUNTER → 2023-10-14 11:02 | Outpatient (BNVA) | payer MEDICARE, SELFPAY | PROVIDERS: PCP Family Medicine; Visit Provider Physician Assistant | DX: M17.0 Bilateral primary osteoarthritis of knee (principal); M23.307 Other meniscus derangements, unspecified meniscus, left knee | CPT/HCPCS: 99213 ==

== ENCOUNTER 2023-12-14 11:29 | Outpatient (CLI) | payer MEDICARE, SELFPAY | END 2023-12-14 11:30 | disposition home or self-care (01) | LOC: SPT 11:30 | PROVIDERS: PCP Family Medicine; Visit Provider Physician Assistant | DX: M17.0 Bilateral primary osteoarthritis of knee (principal); M23.307 Other meniscus derangements, unspecified meniscus, left knee | CPT/HCPCS: 20610; 97760; 99213; J7318; L1851 ==

== ENCOUNTER → 2024-02-11 11:31 | Outpatient (BNVA) | payer MEDICARE, SELFPAY | PROVIDERS: PCP Family Medicine; Visit Provider Specialist | DX: G47.419 Narcolepsy without cataplexy (principal); G43.019 Migraine without aura, intractable, without status migrainosus; G47.33 Obstructive sleep apnea (adult) (pediatric) | CPT/HCPCS: 99213 ==

== ENCOUNTER → 2024-02-15 09:00 | Outpatient (BNVA) | payer MEDICARE, SELFPAY | PROVIDERS: PCP Family Medicine; Visit Provider Physician Assistant | DX: M17.0 Bilateral primary osteoarthritis of knee (principal); M23.307 Other meniscus derangements, unspecified meniscus, left knee | CPT/HCPCS: 99213 ==

== ENCOUNTER → 2024-04-04 15:12 | Outpatient (BNVA) | payer MEDICARE, SELFPAY | PROVIDERS: PCP Family Medicine; Visit Provider Physician Assistant | DX: M17.0 Bilateral primary osteoarthritis of knee; M25.561 Pain in right knee | CPT/HCPCS: 73560; 73565; 99214 ==

== ENCOUNTER → 2024-05-11 11:30 | Outpatient (BNVA) | payer MEDICARE, SELFPAY | PROVIDERS: PCP Family Medicine; Visit Provider Specialist | DX: G47.419 Narcolepsy without cataplexy (principal); G43.019 Migraine without aura, intractable, without status migrainosus; G47.33 Obstructive sleep apnea (adult) (pediatric); R03.0 Elevated blood-pressure reading, without diagnosis of hypertension; M17.9 Osteoarthritis of knee, unspecified | CPT/HCPCS: 99214; 99215 ==

== ENCOUNTER → 2024-05-30 14:18 | Outpatient (BNVA) | payer MEDICARE, SELFPAY | PROVIDERS: PCP Family Medicine; Visit Provider Student in an Organized Health Care Education/Training Program | DX: M17.0 Bilateral primary osteoarthritis of knee | CPT/HCPCS: 99214 ==

== ENCOUNTER 2024-05-31 13:08 | Outpatient (CLI) | payer MEDICARE, SELFPAY ==
[2024-05-31 13:21] LABS: Bilirubin Urine Negative (Negative); Blood Urine Negative (Negative); Glucose Urine UA Negative (Normal); Ketones Urine Negative (Negative); Leukocyte Esterase Urine 2+ (Negative); Nitrate Urine Negative (Negative); Protein Urine Negative (Negative); Urine Appearance Clear (CLEAR); Urine Color Yellow (Yellow)
[2024-05-31 13:26] LABS: Add Urine Microscopic? YES; Bacteria Urine None Seen /hpf; Hyaline Casts Urine 0.81 /lpf; RBC Urine 0-2 /hpf (0-2); Squamous Epithelial Cell Urine 0-5 /hpf (0-5)
== END 2024-05-31 13:09 | disposition home or self-care (01) ==
PROVIDERS: PCP Family Medicine; Visit Provider Student in an Organized Health Care Education/Training Program
DX: Z01.818 Encounter for other preprocedural examination (principal)
CPT/HCPCS: 81001

== ENCOUNTER 2024-06-08 17:06 | Outpatient (CLI) | payer MEDICARE, SELFPAY ==
--- NOTE | 2024-06-08 17:15 | CT_ITS ---
WS: [id number] CT RIGHT knee, noncontrast HISTORY: RIGHT TOTAL KNEE ARTHROPLASTY TECHNIQUE: Protocol for [facility] total knee replacement has been obtained. This includes axial imaging th rough the RIGHT hip, RIGHT knee and RIGHT ankle. DLP: 963.96 mGy.cm COMPARISON: Radiograph 04/04/2024 Pelvis: Mild degenerative air in the SI joints. No destructive lesions. No soft tissue abnormality. RIGHT knee: Moderate tricompartment joint space narrowing with small marginal osteophytes. No fractur es or destructive bone lesions. No significant joint effusion. Mild muscle atrophy. RIGHT ankle: Negative. CT/CT knee RT [facility] [id number] IMPRESSION: CT imaging provided for [facility] robotic total knee replacement.
== END 2024-06-08 17:07 | disposition home or self-care (01) ==
LOC: RAD 17:07
PROVIDERS: PCP Family Medicine; Visit Provider Student in an Organized Health Care Education/Training Program
DX: Z01.818 Encounter for other preprocedural examination (principal); M17.0 Bilateral primary osteoarthritis of knee; Z98.890 Other specified postprocedural states; M25.761 Osteophyte, right knee; M23.304 Other meniscus derangements, unspecified medial meniscus, left knee
CPT/HCPCS: 73700

== ENCOUNTER 2024-06-19 10:19 | Observation (INO) | payer MEDICARE, SELFPAY ==
[2024-05-30 16:49] LABS: Basophils % 0.6 %; Eosinophils # 0.1 10^3/uL (0.0-0.8); Eosinophils % 1.6 %; Hematocrit 41.4 % (36-47); Lymphocytes # 1.7 10^3/uL (0.8-4.8); Lymphocytes % 27.5 %; Mean Corpuscular HGB Conc 32.1 g/dL (30-55); Mean Corpuscular Hemoglobin 30.4 pg (27-33); Mean Corpuscular Volume 94.5 fl (85-98); Mean Platelet Volume 9.5 fL (7.4-10.4); Monocytes # 0.5 10^3/uL (0.2-0.9); Monocytes % 7.9 %; Neutrophils # 3.86 10^3/uL (1.8-7.7); Neutrophils % 62.2 %; Nucleated Red Blood Cells % 0 %; Platelet Count 209 10^3/cmm (157-399); Red Blood Count 4.38 10^6/uL (3.85-5.65); Red Cell Distribution Width 12.7 % (12.1-15.1); White Blood Count 6.21 10^3/uL (3.29-11.43)
[2024-05-30 17:31] LABS: Alanine Aminotransferase 15 U/L (0-33); Albumin Level 4.2 g/dL (3.5-5.2); Alkaline Phosphatase 92 U/L (35-105); Anion Gap 10.2 (5-19); Aspartate Amino Transferase 11 U/L (0-32); Blood Urea Nitrogen 15 mg/dL (8-23); Calcium 8.8 mg/dL (8.5-10.5); Carbon Dioxide 29 mmol/L (22-29); Chloride 108 mmol/L (98-107); Globulin 1.8 g/dL (1.3-4.6); Glomerular Filtration Rate 72.2 mL/min (90-130); Glucose 103 mg/dL (65-115); Osmolality Calculated 297 mOsm/kg (285-295); Potassium 4.2 mmol/L (3.5-5.1); Sodium 143 mmol/L (136-145); Total Bilirubin 0.4 mg/dL (0.15-1.2)
[2024-06-19] VITALS (28 sets, daily range): BP systolic 106–176; BP diastolic 63–92; PULSE 62–76; RESP 15–18; TEMP 36.1–36.9; O2SAT 92–100; BMI 33.6
[2024-06-19] MEDS: ketorolac 30 mg/mL INJ IVP (07:20)
[2024-06-19] MEDS: acetaminophen 1,000 MG/100 ML PIGGYBACK 400 MG IV ×3 (07:20→20:37)
[2024-06-19] MEDS: sodium chloride 0.9% 1,000 ML 30 ML IV (07:21)
[2024-06-19] MEDS: lactated ringers 500 ML IV (07:38)
--- NOTE | 2024-06-19 07:56 | P.ANESASSM_ITS ---
Pre-Anesthetic Assessment Height/Weight: Height 1.63 m Weight 88.904 kg Temp Pulse Resp BP Pulse Ox O2 Del Method 97.0 F L 71 18 141/81 93 Room Air 06/19/24 07:11 06/19/24 07:11 06/19/24 07:11 06/19/24 07:11 06/19/24 07:11 06/19/24 07:12 Operation Date: 06/19/24 08:30 Proposed Procedures p Reggie Robot Total Knee Arthroplasty(Right) - Alec Alatorre DO Familial anesthetic complications: None Was Beta Wallace taken within 24 hours: N/A Was Clonidine taken within 24 hours: N/A Last intake: Intake Last Liquid Date 06/18/24 Last Liquid Time 20:00 Last Solid Date 06/18/24 Last Solid Time 19:00 Social No alcohol and No tobacco Exam alert, oriented x 3, clear to auscultation bilaterally and regular rate & rhythm Airway Mallampati: Class II Dentition: full Pulmonary Sleep Apnea CV/HEM Hypertension GI Gastroesophageal Reflux Disease (states its pretty severe and she's currently experiencing symptoms, will give bicitra and do general) Neuropsych narcolepsy Anesthetic Plan ASA status: 3 Anesthesia: General (general d/t Active symptomatic GERD on presentation) and Regional (specify below) Risk of > 500 ml blood loss (7ml/kg in children): No Medications/Allergies Home Medications Medication Instructions Recorded Confirmed Last Taken Type atqsrva-mkmtvxyknajoz-btwjlitk 250 1 tab PO Q6H PRN Headache 08/31/19 06/18/24 06/14/24 History mg-250 mg-65 mg tablet (Excedrin Migraine) ECONOMY knee brace right #1 ea 05/17/23 06/18/24 Unknown Rx ascorbate calcium (vitamin C) 500 500 mg PO DAILY 05/17/23 06/18/24 06/14/24 History mg tablet meloxicam 15 mg tablet See Rx Instructions .Route 08/09/23 06/18/24 06/05/24 Rx .COMPLEX #30 tabs gabapentin 600 mg tablet See Rx Instructions .Route 11/08/23 06/18/24 06/15/24 Rx .COMPLEX #270 tabs diclofenac sodium 1 % topical gel See Rx Instructions .Route 12/03/23 06/18/24 06/12/24 Rx (Arthritis Pain (diclofenac)) .COMPLEX #100 grams bilateral knee medial plumber's assistant #1 ea 12/14/23 06/18/24 Unknown Rx brace fluorouracil 5 % topical cream See Rx Instructions .Route 05/08/24 06/18/24 06/15/24 Rx .COMPLEX #40 grams propranolol 80 mg capsule,24 See Rx Instructions .Route 05/08/24 06/18/24 06/15/24 Rx hr,extended release .COMPLEX #90 caps tramadol 50 mg tablet 50 mg PO Q6H PRN pain 5 days #20 05/08/24 06/18/24 06/12/24 Rx tabs venlafaxine 75 mg tablet 75 mg PO BID #180 tabs 05/08/24 06/18/24 06/15/24 Rx methylphenidate HCl 20 mg tablet 20 mg PO TID 1 month #90 tabs 05/11/24 06/18/24 06/15/24 Rx pitolisant 17.8 mg tablet (Wakix) See Rx Instructions .Route 05/11/24 06/18/24 06/15/24 Rx .COMPLEX #90 tabs topiramate 100 mg tablet 50 mg (1/2 x 100 mg) PO DAILY #45 05/11/24 06/18/24 06/15/24 Rx tabs solriamfetol 150 mg tablet (Sunosi) 150 mg PO DAILY 06/15/24 06/18/24 06/15/24 History omeprazole 20 mg tablet,delayed 20 mg PO BID 06/16/24 06/18/24 Unknown History release Allergies Allergy/AdvReac Type Severity Reaction Status Date / Time No Known Allergies Allergy Verified 06/16/24 10:13 Current Medications Generic Name Dose Route Start Last Admin Trade Name Freq PRN Reason Stop Dose Admin Sodium Chloride 1,000 mls @ 30 mls/hr 06/19/24 07:00 06/19/24 07:21 Sodium Chloride 0.9% IV 06/20/24 06:59 30 mls/hr .Q24H RAE Administration Lactated Ringer's 500 mls @ 500 mls/hr 06/19/24 06:59 06/19/24 07:38 Lactated Ringers IV 06/19/24 07:58 500 mls/hr .Q1H ONE Administration PFSH Anesthesia Medical History Essential hypertension Persistent migraine aura with stroke self reports history of migraine stroke without salvage determiner residual. Medial meniscus tear Narcolepsy takes ritalin and sunosi JAMAAL (obstructive sleep apnea) compliant with CPAP Opioid contract exists Encounter for long-term use of opiate analgesic Cervical disc disease Chronic lumbosacral pain Surgical History H/O tubal ligation History of hysterectomy H/O neck surgery Fusion Family History Other COPD (chronic obstructive pulmonary disease) Cancer Hypertension Denies family history of Clotting disorder Anesthesia complication Bleeding disorder Social History Smoking and tobacco/nicotine status: never used tobacco/nicotine Second hand smoke exposure: No Alcohol intake: current Alcohol intake frequency: 0-2 Drinks per Day Alcohol type: wine Substance/Drug Use: never Data Anesthesia 05/30/24 16:14 05/30/24 16:14 Cardiac Studies: 2 No Data to Display
--- NOTE | 2024-06-19 07:58 | ANES.PROC ---
Anesthesia Procedures Procedure/Date: 06/19/24 Nerve Block ^: Nerve Block 1: Main Anesthesia: general anesthesia Time Out Performed: Yes Consent: requested by attending/covering physician, from patient, from other, risks and benefits reviewed and patient agrees to proceed Nerve block location: adductor canal (R) Anesthesia monitors applied: pulse oximetry, EKG, BP cuff and oxygen Nerve block position: supine Anesthetic Used: ropivicaine 0.5% (30 ml) and with decadron (4 mg) Ultrasound used to: recognize landmarks and visualize and ID femerol nerve Nerve Stimulator Used?: No Interscalene/Femoral BLK: 4 stimuplex 21 g needle used for position and inplane approach, visualize local anesthetic spread and no vascular puncture identified Injection: neg aspiration of heme Patient Tolerated Procedure: well Complications: none
--- NOTE | 2024-06-19 08:06 | PC.NURSE ---
Nerve block completed with Dr. Wilson to right knee, time out done at 0744 pt verbalizes correct site, 30 cc 0.5% Ropivacaine and 4mg decadron injected with ultrasound imagine.
--- NOTE | 2024-06-19 08:11 | W.PM.OPSUD ---
Surgery/Procedure H&P Update DATE OF PROCEDURE: June 19, 2024 DATE H&P PERFORMED: 05/30/24 H&P UPDATE INFORMATION: I have reviewed H&P completed within last 30 days, I have examined patient prior to procedure and No changes to prior documentation CHANGES TO PREVIOUS DOCUMENTATION: Patient is cleared the preoperative clearance process and medically optimized prior to surgical intervention no change in her health since our last office visit ready proceed with surgical intervention today. PREOP DIAGNOSIS: right knee degenerative joint disease PRIMARY INDICATION FOR PROCEDURE: Right knee degenerative joint disease PLANNED PROCEDURE: Operation Date: 06/19/24 08:30 Proposed Procedures p Reggie Robot Total Knee Arthroplasty(Right) - Alec Alatorre DO
[2024-06-19 08:13] LABS: Basophils # 0.1 10^3/uL (0.0-0.1); Basophils % 1.3 %; Eosinophils # 0.2 10^3/uL (0.0-0.8); Eosinophils % 3.2 %; Hematocrit 40.3 % (36-47); Lymphocytes # 2.2 10^3/uL (0.8-4.8); Lymphocytes % 40.9 %; Mean Corpuscular HGB Conc 32.8 g/dL (30-55); Mean Corpuscular Hemoglobin 30.3 pg (27-33); Mean Corpuscular Volume 92.6 fl (85-98); Monocytes # 0.4 10^3/uL (0.2-0.9); Monocytes % 8.1 %; Neutrophils # 2.44 10^3/uL (1.8-7.7); Neutrophils % 46.3 %; Nucleated Red Blood Cells % 0 %; Platelet Count 197 10^3/cmm (157-399); Red Blood Count 4.35 10^6/uL (3.85-5.65); Red Cell Distribution Width 12.6 % (12.1-15.1); White Blood Count 5.28 10^3/uL (3.29-11.43)
[2024-06-19 08:21] LABS: Anion Gap 13.9 (5-19); Blood Urea Nitrogen 21 mg/dL (8-23); Calcium 8.9 mg/dL (8.5-10.5); Carbon Dioxide 25 mmol/L (22-29); Chloride 106 mmol/L (98-107); Creatinine Clr Calc Pharmacy 76.6919; Glomerular Filtration Rate 72.2 mL/min (90-130); Glucose 96 mg/dL (65-115); Osmolality Calculated 295 mOsm/kg (285-295); Potassium 3.9 mmol/L (3.5-5.1); Sodium 141 mmol/L (136-145)
[2024-06-19] MEDS: ceFAZolin 2,000 MG in sodium chloride 0.9% (plus) 50 ML 100 MG IV ×2 (08:25→17:56)
[2024-06-19] MEDS: tranexamic acid 1,000 mg/10mL SDV 1000 MG IV (08:48)
[2024-06-19] MEDS: VANCOMYCIN ADD-Vantage 1,000 MG VIAL 1000 MG XX (09:57)
--- NOTE | 2024-06-19 10:53 | W.PM.BPON ---
Date of Procedure: [June 19, 2024] Surgeon: [Dr. Alatorre DO] [employer] Hand(s): [Vinod Alatorre PA-C] Procedure(s) performed: [Right knee total arthroplasty with Reggie robotic assist] Findings of the procedure(s): [Right knee degenerative joint disease. Procedure went well and as planned.] Estimated blood loss: [40 mL] Specimen(s) removed: [N/A] Post-operative diagnosis: [Right knee degenerative joint disease]
[2024-06-19] MEDS: fentaNYL 50 mcg/mL INJ 2mL IVP ×2 (10:55→11:20)
--- NOTE | 2024-06-19 10:56 | PM.PACU ---
PACU note Narrative: Patient is a 64-year-old female just underwent a right total knee arthroplasty. Pt transferred to PACU in stable condition. Dressing is dry. pt is awake and alert. pt can wiggle toes and plantarflex and dorsiflex foot. Distal pulses are palpable toes are warm and well-perfused. Cap refill is normal and under 2 seconds. Sensation to foot is intact. Pain is controlled. Exam: awake Disposition: admitted
--- NOTE | 2024-06-19 10:57 | XR_ITS ---
WS: [id number] Right knee, AP and lateral views, 06/19/2024 Clinical Data: s/p R TKA Comparison: both knees, 04/04/2024 Findings: The right knee arthroplasty is in good position. No periprosthetic fractures or loosening is seen. Th ere is postoperative air in the joint space. XR/XR knee RT 1-2V [id number] Impression: Right knee arthroplasty.
--- NOTE | 2024-06-19 10:58 | P.OP_ITS ---
Operative Report Date of procedure: June 19, 2024 Surgeon: Alec Alatorre DO Director Safety Council: Vinod Alatorre PA-C: PA was necessary for assistance in this case with leg positioning retraction and protection of neurovascular structures as well as assistance in implantation wound closure and dressing application. Procedure: Preoperative diagnosis: Right knee degenerative joint disease Post-op diagnosis: Same Procedure done: Right total knee arthroplasty, cemented?robotic assisted Reggie Implants: Vickie triathlon size 4 femur CR cemented?Right Garrett triathlon size? 3 tibia universal baseplate cemented Vickie triathlon symmetric patella size 27 mm Garrett triathlon polyethylene 9mm Surgeon: Alec Alatorre DO Estimated blood?loss: 40 mL Tourniquet 70minutes IV fluids: 800 mL Urine output: 100 mL Complications: None Condition: stable Disposition: floor Brief History: Patient is a 64-year-old female with with chronic?Right knee degenerative joint disease.? Patient has been worked up in the outpatient setting in the orthopedic office at this point time through shared decision making given? [id number] arthritis as well as failed conservative treatment, and pt would?like to proceed with a?Right total knee arthroplasty.? Through shared decision making elected to proceed with surgical intervention for?Right total knee arthroplasty.? We talked about continued conservative treatment and surgical intervention as far as the risk benefits complications alternatives surgical and nonsurgical treatment options.? At this point time understanding patient risks with surgery he agrees to proceed with surgical intervention.? Once again? risk with surgery include but are not?limited to make it better make it worse blood clot, heart attack, stroke, on the table, infection, injury to nerves or vessels, persistent pain, arthrofibrosis, implant failure.? Understanding these risks patient agrees to proceed with surgical intervention consent was obtained.? All questions answered. Procedure: Patient was seen and evaluated in the preoperative holding area.? Consent was reviewed and signed with patient with plan for?Right total knee arthroplasty.? All questions answered.? Correct extremity marked.? Patient seen and evaluated by the anesthesia department and once cleared for surgery was taken back to the operative suite.? Patient was placed into a supine position on the OR table.? All bony prominences were well-padded.? Patient was appropriately secured to the bed.? Patient underwent anesthesia per the anesthesia department.? Patient received spinal anesthesia and? Stratton catheter was placed.? A nonsterile tourniquet was applied to the?Right thigh.? At this point in time a final timeout performed.? Patient received appropriate preoperative antibiotics and TXA. Next the?Right?lower extremity was then prepped and draped in standard orthopedic fashion. Esmarch tourniquet was used exsanguinate the?Right?lower extremity.? Tourniquet was insufflated to 250 mmHg. A standard anterior incision was made over midline of the knee.? Sharp scalpel excision through skin and subcutaneous tissue full-thickness skin flaps were made.? Fascia was elevated off of the extensor retinaculum was stable with medial parapatellar arthrotomy was then made.? The performed standard sequential releases. Immediately on entry into the joint patient was found to have severe eburnated bone and tricompartmental arthritic changes noted.? With significant osteophyte formation.? Next the the patella was then stuffed and the knee was then flexed.?? Harpreet was placed superiorly around the anterior aspect of the femur this was freed of synovium and I subsequently then placed by 2 femur pins to establish my femur arrays for the Reggie robot.? These were then placed bicortically and? femur array was then appropriately secured with appropriate visualization.? Next attention was turned towards the tibial rays.? These were then drilled sequentially bicortically in parallel fashion and intraincisional.? I then placed my guide as well as my tibial array on in place.? This was appropriately secured and had excellent visualization with the Reggie robot.? Next the tibial checkpoint as well as femur checkpoint were then placed.? At this point time I then subsequently established my head center as well as my medial?lateral malleoli as well as my checkpoints.? Next utilizing standard Reggie technology I then mapped out the appropriate points and confirmation points around the femur as well as the tibia in standard fashion.? Once this was then done I then removed all osteophytes in preparation for dynamic testing.? All osteophytes were removed as well as I removed the ACL and the PCL was excised due to its significant tearing and degeneration noted.? At this point time the knee was brought into full extension and we performed our standard evaluation of our gap balancing stressing his?ligaments and extension as well as flexion appropriate adjustments were made to have appropriate gap balancing in both flexion and extension.? Patient started off with a small flexion contracture and 8 degree varus deformity was able to correct this with our plan. This plan for final cuts.? We get a preoperative plan evaluating our implants which was a size 4 femur and a size 3 tibia.? Next we brought in the Reggie robot and sequentially made our femur cuts.? All excess bony cuts were then removed.? Finally we made our tibial cut.? Once this was done a standard PCL retractor was then placed into this position I excised the medial and?lateral meniscus.? The tibial cut was then subsequently removed all excess bony debris was removed.? I then utilized a?lamina metal pourer and remove the posterior osteophytes.? At this point time sized the tibia and confirmed this was a size 3.? I utilized our blunt probe to establish rotation of tibial implant.? Once this was done I then placed my tibia size 3 trial in appropriate position and then subsequently placed tibial pins to hold this into place placed a size 9 mm poly as well as a size 4 femur which was appropriately impacted in place knee was then subsequently brought into extension. Trials were then assessed,? this was stable with varus valgus stress in extension as well as had symmetrical translation when brought into flexion demonstrating symmetrical gaps. I had excellent balance gaps in flexion and extension with varus and valgus stresses.? At this point I was satisfied with these implants these were then verified and opened on the back table size 3 tibia, size4 femur,? size 9 mm polythickness.? We did confirm appropriate gap balancing and stresses as well as alignment utilizing? Reggie and were satisfied with this plan.? ?At this point time with my trials in place I then towel clip the patella everted this made appropriate measurements subsequently utilizing freehand technique performed by patellar resurfacing this was confirmed to be appropriate resection and subsequently sized to be a 27 mm symmetric.? My drill peg guides were then clamped and appropriate position and appropriate position in the patella for appropriate tracking and parallel with the joint.? Pegs were drilled trial implant was placed and the knee was then subsequently ranged and found to have excellent patellar tracking.? Femur pegs were then drilled.?All checkpoints as well as guidepins and arrays were removed and appropriate counts made. Satisfied with our tibial placement rotation I then utilized the keel punch and prepped the tibia.? At this point time all of our trial implants were removed.? ? The wound bed? was thoroughly irrigated and dried and prepped for cementation.? Cement was mixed on the back table.? Once cement was ready this was then covered onto the tibia and the tibial baseplate was then impacted and all excess cement was removed.? Next the polyethylene was then impacted into place on the tibial baseplate.? Next cement was placed onto the femur as well as under the femur implants and impacted in to place and all excess cement was extruded and removed.? Knee was taken into full extension? to clear all excess cement was removed.? Warm saline was placed over the joint.? I then towel clip patella and dried for cementation. cemented the patella into place.? This was all clamped and the cement was allowed to cure.? Thorough irrigation performed with pulse?lavage.?? Once cured the knee was taken through range of motion and had excellent stability and gaps were balanced in flexion and extension.? Tourniquet was then deflated. hemostasis satisfactory with electrocautery.? Vancomycin powder was placed in the wound bed for antibiotic infection prophylaxis. Next I then subsequently closed the capsule with Ethibond suture as well as a running strata fix suture.? Knee was then taken through range of motion 30 times.? Next the skin was then closed in?layered fashion of running stratifix sutures of deep and subcutenous tissue and skin.? ?closed in flexion and Prineo glue was then placed over the incision this allowed to cure.? Incision was covered with rose, with ABDs soft roll and Robert wrap.? Patient was then awakened from anesthesia and taken to PACU in stable condition. Disposition: Patient taken to PACU in stable condition will be admitted to the floor for pain control PT/OT weight-bear as tolerated?Right?lower extremity dressing changes as needed, DVT prophylaxis. Pain control. Patient will receive appropriate postoperative antibiotics. patient will be seen today by the internal medicine team for medical management.? Patient will follow up with the office in 2 weeks.? Patient understands agrees with current plan.? All questions answered.
--- NOTE | 2024-06-19 11:50 | ANE.PACU2 ---
Inpatient post-anesthesia follow up: Airway intact: Yes Vital signs: Temperature 98.3 F Pulse Rate 63 Respiratory Rate 16 Blood Pressure 117/70 Pulse Oximetry 92 Oxygen Delivery Me thod Room Air Oxygen Flow Rate 3 Fraction of Inspir ed Oxygen Hydration adequate: Yes Nausea and vomiting: No Pain level: 1 Mental status: Baseline
[2024-06-19] MEDS: HYDROmorphone 1 mg/mL INJ 1 mL 0.5 MG IVP (12:11)
[2024-06-19] MEDS: lactated ringers 1,000 ML 100 ML IV ×2 (12:13→22:12)
[2024-06-19] MEDS: chlorhexidine gluconate 0.12% Btl 473 mL 30 ML MUCOUS MEM ×3 (12:14→20:40)
[2024-06-19] MEDS: ketorolac 30 mg/mL INJ 15 MG IVP (13:16)
[2024-06-19] MEDS: oxyCODONE 5 mg IR Tab/Cap PO ×2 (13:17→17:51)
[2024-06-19] MEDS: tranexamic acid 1,000 MG/100 ML PREMIX 600 MG IV (14:21)
[2024-06-19] MEDS: methocarbamol 500 mg Tablet PO ×2 (14:21→17:51)
[2024-06-19] MEDS: HYDROmorphone 1 mg/mL INJ 1 mL IVP (14:21)
--- NOTE | 2024-06-19 14:31 | PC.PT ---
Attempted eval. Nurse in the room giving pain meds. Pt at 10/10 pain level and was getting Dilaudid and a muscle relaxer to try and get pain under control. Pt educated on AP and trying to move knee as much as she could if her pain comes down off of 10/10. Will attempt later today or in the morning first thing if pain is not under control tonight.
--- NOTE | 2024-06-19 16:23 | P.CONIM_ITS ---
Providers/Reason For Consult 2 Consulting Physician/Specialty*: orthopedic Reason for Consult*: right knee surgery Attending Physician: Alec Alatorre DO Primary Care Provider: Kyle Jenkins MD History of Present Illness History of Present Illness Kelley Cooper is a 64 year old female narcolepsy, obstructive sleep apnea on CPAP, hypertension, migraine, who presents [facility] for right total knee arthroplasty, seat patient was seen postoperatively, she is alert oriented to person, to place, not to time she follows commands, she reports she took her narcolepsy medications this morning, I advised her that she has to have her family bring in her narcolepsy medication as we do not carry them here in the hospital, denies any chest pain, no shortness of breath Review of Systems 2 Card: Denies: chest pain Resp: Denies: dyspnea GI: Denies: abdominal pain Medications/Allergies Home Medications Medication Instructions Recorded Confirmed Last Taken Type [id number]-[id number]-[id number] 250 1 tab PO Q6H PRN Headache 08/31/19 06/18/24 06/14/24 History mg-250 mg-65 mg tablet (Excedrin Migraine) ECONOMY knee brace right #1 ea 05/17/23 06/18/24 Unknown Rx ascorbate calcium (vitamin C) 500 500 mg PO DAILY 05/17/23 06/18/24 06/14/24 History mg tablet meloxicam 15 mg tablet See Rx Instructions .Route 08/09/23 06/18/24 06/05/24 Rx .COMPLEX #30 tabs gabapentin 600 mg tablet See Rx Instructions .Route 11/08/23 06/18/24 06/15/24 Rx .COMPLEX #270 tabs diclofenac sodium 1 % topical gel See Rx Instructions .Route 12/03/23 06/18/24 06/12/24 Rx (Arthritis Pain (diclofenac)) .COMPLEX #100 grams bilateral knee medial buncher hand #1 ea 12/14/23 06/18/24 Unknown Rx brace fluorouracil 5 % topical cream See Rx Instructions .Route 05/08/24 06/18/24 06/15/24 Rx .COMPLEX #40 grams propranolol 80 mg capsule,24 See Rx Instructions .Route 05/08/24 06/18/24 06/15/24 Rx hr,extended release .COMPLEX #90 caps tramadol 50 mg tablet 50 mg PO Q6H PRN pain 5 days #20 05/08/24 06/18/24 06/12/24 Rx tabs venlafaxine 75 mg tablet 75 mg PO BID #180 tabs 05/08/24 06/18/24 06/15/24 Rx methylphenidate HCl 20 mg tablet 20 mg PO TID 1 month #90 tabs 05/11/24 06/18/24 06/15/24 Rx pitolisant 17.8 mg tablet (Wakix) See Rx Instructions .Route 05/11/24 06/18/24 06/15/24 Rx .COMPLEX #90 tabs topiramate 100 mg tablet 50 mg (1/2 x 100 mg) PO DAILY #45 05/11/24 06/18/24 06/15/24 Rx tabs solriamfetol 150 mg tablet (Sunosi) 150 mg PO DAILY 06/15/24 06/18/24 06/15/24 History omeprazole 20 mg tablet,delayed 20 mg PO BID 06/16/24 06/18/24 Unknown History release Allergies Allergy/AdvReac Type Severity Reaction Status Date / Time No Known Allergies Allergy Verified 06/16/24 10:13 Current Medications Generic Name Dose Route Start Last Admin Trade Name Freq PRN Reason Stop Dose Admin Chlorhexidine Gluconate 30 ml 06/19/24 13:00 06/19/24 12:14 Chlorhexidine Gluconate 0.12% Btl 473 Ml MUCOUS MEM 30 ml QID RAE Administration Lactated Ringer's 1,000 mls @ 100 mls/hr 06/19/24 11:56 06/19/24 12:13 Lactated Ringers IV 100 mls/hr .Q10H RAE Administration Acetaminophen 1,000 mg in 100 mls @ 400 mls/hr 06/19/24 11:56 06/19/24 14:58 Acetaminophen IV 06/20/24 04:10 Infused Q8H RAE Infusion Ketorolac Tromethamine 15 mg 06/19/24 11:56 06/19/24 13:16 Ketorolac 30 Mg/Ml Inj IVP 15 mg Q6H PRN Administration MODERATE TO SEVERE PAIN Methocarbamol 500 mg 06/19/24 14:15 06/19/24 14:21 Methocarbamol 500 Mg Tablet PO 500 mg BID RAE Administration Oxycodone HCl 5 mg 06/19/24 11:56 06/19/24 13:17 Oxycodone 5 Mg Ir Tab/Cap PO 5 mg Q4H PRN Administration MODERATE PAIN PFSH Acute 2 PFSH: Medical History Essential hypertension Persistent migraine aura with stroke self reports history of migraine stroke without jail residual. Medial meniscus tear Narcolepsy takes ritalin and sunosi JAMAAL (obstructive sleep apnea) compliant with CPAP Opioid contract exists Encounter for long-term use of opiate analgesic Cervical disc disease Chronic lumbosacral pain Surgical History H/O tubal ligation History of hysterectomy H/O neck surgery Fusion Family History Other COPD (chronic obstructive pulmonary disease) Cancer Hypertension Denies family history of Clotting disorder Anesthesia complication Bleeding disorder Social History Smoking and tobacco/nicotine status: never used tobacco/nicotine Second hand smoke exposure: No Alcohol intake: current Alcohol intake frequency: 0-2 Drinks per Day Alcohol type: wine Substance/Drug Use: never Vitals/I&O/Wt Last Vital Signs Temp 97.9 F 06/19/24 14:00 Pulse 65 06/19/24 15:04 Resp 16 06/19/24 14:21 BP 144/88 06/19/24 15:04 Pulse Ox 99 06/19/24 15:04 O2 Del Method Nasal Cannula 06/19/24 15:04 O2 Flow Rate 2 06/19/24 15:04 06/19/24 06/19/24 06/19/24 06:59 14:59 22:59 Intake Total 970 / 970 239 / 1209 Output Total 140 / 140 Balance 830 / 830 239 / 1069 Weight last 48 hrs Weight 88.904 kg Weight 88.904 kg Physical Exam 2 Const: COMMON NORMALS: no acute distress ORIENTATION/CONSCIOUSNESS: Yes awake, Yes oriented to person and Yes oriented to place HENMT: COMMON NORMALS: normocephalic HEAD & SCALP: normocephalic Eye: COMMON NORMALS: Equal, round and reactive pupils present PUPIL: Yes Equal, round and reactive pupils present Neck/C-Spine: COMMON NORMALS: full ROM Lymph: LYMPHATIC: no lymphadenopathy noted Resp: COMMON NORMALS: normal respiratory effort, No retractions, No use of accessory muscles and clear to auscultation bilaterally AUSCULTATION: clear to auscultation bilaterally Cardio: COMMON NORMALS: regular rate, regular rhythm, S1 normal heart sound present and S2 normal heart sound present RATE: regular rate RHYTHM: r egular rhythm HEART SOUNDS: S1 normal heart sound present and S2 normal heart sound present GI: COMMON NORMALS: Normal to inspection, nondistended, normoactive bowel sounds present and non-tender Extremity: COMMON NORMALS: no pedal edema Neuro: COMMON NORMALS: CN's II-XII intact bilaterally and moves all extremities SENSORIUM/ORIENTATION: Yes oriented to person and Yes oriented to place Psych: COMMON NORMALS: mental status grossly normal Urinary Catheter Management: Stratton: Cath Placed During This Visit: yes Urinary Catheter Date of Insertion: 06/19/24 Urinary Catheter Time of Insertion: 08:20 Data 06/19/24 07:25 06/19/24 07:25 A&P Assessment and plan (1) Essential hypertension: (2) JAMAAL (obstructive sleep apnea): (3) Narcolepsy without cataplexy: Plan Right knee surgery # Pain control and anticoagulation as per orthopedic team Obstructive sleep apnea, continue CPAP tonight Narcolepsy, will have to have patient's family bring in her narcolepsy medications, her methylphenidate -Resume gabapentin, resume Topamax, resume Effexor Consult Attestations 2 Medical Necessity Statement: Patient requires hospitalization for right knee surgery Diagnoses Essential hypertension I10 JAMAAL (obstructive sleep apnea) G47.33 Narcolepsy without cataplexy G47.419
--- NOTE | 2024-06-19 17:08 | PC.OT ---
OT evaluation withheld this date per patient request. Patient had right TKA earlier today. Nursing notified. To attempt to evaluate on a later date.
[2024-06-19] MEDS: calcium carb-vit d 600mg/400unit 1 Tablet 1 EACH PO (17:51)
[2024-06-19] MEDS: docusate sodium 100 mg Capsule PO (17:51)
[2024-06-19] MEDS: mupirocin oint 22 gm 1 APPLIC NASAL (17:51)
[2024-06-19] MEDS: iron polysaccharide complex 150 mg Capsule PO (17:52)
[2024-06-19] MEDS: venlafaxine 75 mg Tablet PO (17:56)
[2024-06-19] MEDS: gabapentin 300 mg Capsule 600 MG PO (20:40)
[2024-06-19] MEDS: methylphenidate 10 mg Tablet 20 MG PO (20:40)
[2024-06-19] MEDS: TRAMadol 50 mg Tablet PO (20:44)
[2024-06-20] VITALS (8 sets, daily range): BP systolic 122–155; BP diastolic 77–94; PULSE 70–82; RESP 17–20; TEMP 36.4–36.9; O2SAT 95–98
[2024-06-20] MEDS: ceFAZolin 2,000 MG in sodium chloride 0.9% (plus) 50 ML 100 MG IV ×2 (00:42→08:32)
[2024-06-20] MEDS: ketorolac 30 mg/mL INJ 15 MG IVP ×2 (01:19→07:39)
[2024-06-20] MEDS: oxyCODONE 5 mg IR Tab/Cap PO ×3 (01:22→12:06)
[2024-06-20] MEDS: acetaminophen 1,000 MG/100 ML PIGGYBACK 400 MG IV (03:02)
[2024-06-20 06:29] LABS: Basophils % 0.3 %; Hematocrit 35.5 % (36-47); Lymphocytes # 1.7 10^3/uL (0.8-4.8); Lymphocytes % 15.8 %; Mean Corpuscular HGB Conc 32.1 g/dL (30-55); Mean Corpuscular Hemoglobin 30.2 pg (27-33); Mean Corpuscular Volume 94.2 fl (85-98); Mean Platelet Volume 9.9 fL (7.4-10.4); Monocytes # 0.9 10^3/uL (0.2-0.9); Monocytes % 8.6 %; Neutrophils # 8.15 10^3/uL (1.8-7.7); Nucleated Red Blood Cells % 0 %; Platelet Count 167 10^3/cmm (157-399); Red Blood Count 3.77 10^6/uL (3.85-5.65); Red Cell Distribution Width 12.7 % (12.1-15.1); White Blood Count 10.85 10^3/uL (3.29-11.43)
[2024-06-20 06:50] LABS: Anion Gap 12.9 (5-19); Blood Urea Nitrogen 12 mg/dL (8-23); Calcium 8.4 mg/dL (8.5-10.5); Carbon Dioxide 22 mmol/L (22-29); Chloride 105 mmol/L (98-107); Creatinine Clr Calc Pharmacy 132.2915; Glomerular Filtration Rate 124.2 mL/min (90-130); Glucose 109 mg/dL (65-115); Osmolality Calculated 282 mOsm/kg (285-295); Potassium 3.9 mmol/L (3.5-5.1); Sodium 136 mmol/L (136-145)
[2024-06-20] MEDS: iron polysaccharide complex 150 mg Capsule PO (07:38)
[2024-06-20] MEDS: lactated ringers 1,000 ML 100 ML IV (08:33)
[2024-06-20] MEDS: methylphenidate 10 mg Tablet 20 MG PO (08:36)
[2024-06-20] MEDS: topiramate 25 mg Tablet 50 MG PO (08:36)
[2024-06-20] MEDS: calcium carb-vit d 600mg/400unit 1 Tablet 1 EACH PO (08:36)
[2024-06-20] MEDS: methocarbamol 500 mg Tablet PO (08:36)
[2024-06-20] MEDS: multivitamin therapeutic Tablet 1 TAB PO (08:36)
[2024-06-20] MEDS: gabapentin 300 mg Capsule 600 MG PO (08:36)
[2024-06-20] MEDS: apixaban 5 mg Tablet 2.5 MG PO (08:36)
[2024-06-20] MEDS: docusate sodium 100 mg Capsule PO (08:36)
[2024-06-20] MEDS: venlafaxine 75 mg Tablet PO (08:36)
[2024-06-20] MEDS: chlorhexidine gluconate 0.12% Btl 473 mL 30 ML MUCOUS MEM ×2 (08:37→12:08)
[2024-06-20] MEDS: mupirocin oint 22 gm 1 APPLIC NASAL (08:37)
[2024-06-20] MEDS: TRAMadol 50 mg Tablet PO (09:49)
--- NOTE | 2024-06-20 11:26 | P.PN_ITS ---
Subjective 2 Subjective: Patient was seen this morning, she denies any fevers, no chills, no cough Vitals/I&O/Wt Last Vital Signs Temp 98.1 F 06/20/24 07:42 Pulse 76 06/20/24 07:42 Resp 18 06/20/24 07:42 BP 155/83 06/20/24 07:42 Pulse Ox 95 06/20/24 07:42 O2 Del Method Room Air 06/20/24 07:42 O2 Flow Rate 2 06/19/24 15:04 06/19/24 06/20/24 06/20/24 22:59 06:59 14:59 Intake Total 1627.333 / 2597.333 705 / 3302.333 1270 / 1270 Output Total 800 / 940 Balance 1627.333 / 2457.333 -95 / 2362.333 1270 / 1270 Weight last 48 hrs Weight 102.257 kg Weight 88.904 kg Weight 88.904 kg Physical Exam 2 Const: COMMON NORMALS: no acute distress and patient oriented x3 Resp: COMMON NORMALS: normal respiratory effort, No retractions, No use of accessory muscles and clear to auscultation bilaterally AUSCULTATION: clear to auscultation bilaterally Cardio: COMMON NORMALS: regular rate, regular rhythm, S1 normal heart sound present and S2 normal heart sound present RATE: regular rate RHYTHM: r egular rhythm HEART SOUNDS: S1 normal heart sound present and S2 normal heart sound present GI: COMMON NORMALS: Normal to inspection, nondistended, normoactive bowel sounds present and non-tender Extremity: COMMON NORMALS: no pedal edema Neuro: COMMON NORMALS: patient oriented x3 Psych: COMMON NORMALS: mental status grossly normal Urinary Catheter Management: Stratton: Cath Placed During This Visit: yes, but has since been removed by the nurse Reason for Continuing Indwelling Catheter: Perioperative Use in Selected Surgeries Urinary Catheter Date of Insertion: 06/19/24 Urinary Catheter Time of Insertion: 08:20 Date Urinary Catheter Removed: 06/20/24 Time Urinary Catheter Discontinued: 06:20 Data 06/20/24 06:11 06/20/24 06:11 A&P Assessment and plan (1) Essential hypertension: (2) JAMAAL (obstructive sleep apnea): (3) Narcolepsy without cataplexy: Plan Right knee surgery # Pain control and anticoagulation as per orthopedic team Obstructive sleep apnea, continue CPAP tonight Narcolepsy, will have to have patient's family bring in her narcolepsy medications, her methylphenidate -Resume gabapentin, resume Topamax, resume Effexor Attestations 2 Medical Necessity Statement*: Patient will be discharged today Diagnoses Essential hypertension I10 JAMAAL (obstructive sleep apnea) G47.33 Narcolepsy without cataplexy G47.419
--- NOTE | 2024-06-20 13:16 | PM.DCS ---
Discharge Providers Date of Admission: 06/19/24 10:19 Date of Discharge: June 20, 2024 Attending Provider at Admission: Alec Alatorre DO Attending Provider at Discharge: Alec Alatorre DO Consults: Dr. Ernst?hospitalist Primary Care Provider: Kyle Jenkins MD Diagnoses at Discharge Discharge Diagnosis (1) Essential hypertension: Status: Acute (2) JAMAAL (obstructive sleep apnea): Status: Acute Permanent problem details: compliant with CPAP (3) Narcolepsy without cataplexy: Status: Acute Reason for Visit Reason for Visit: M17.0 Brief History: Status post right TKA Hospital Course Hospital Course Patient presented to the preoperative holding area with plan for right total knee arthroplasty after patient has been worked up in the outpatient setting for failed conservative treatment of right knee degenerative joint disease. Once cleared by anesthesia for surgery patient subsequently was taken back to the operative suite underwent anesthesia per anesthesia department and then subsequently underwent a right total knee arthroplasty. Procedure was performed without any complications patient was taken to PACU in stable condition patient recovered well in PACU and then was admitted to the floor postoperatively internal medicine was consulted and on board for medical management and assistance with care. Patient received appropriate PT/OT, postoperative antibiotics, postoperative TXA, pain control, postoperative DVT prophylaxis. Elevation and ice. Patient encouraged for knee range of motion allowed weightbearing as tolerated to the operative lower extremity. Dressing was changed as needed, labs were monitored daily. Patient recovered well postoperatively and worked well and progressed well with therapy. It was determined on postoperative day 1 the patient was stable for discharge from an orthopedic standpoint and medicine. Patient was comfortable with discharge and plan was discharged home. Patient received appropriate discharge instructions as well as pain medication and DVT prophylaxis postoperatively. Given appropriate instructions for dressing management. Patient will follow-up with Dr. Alatorre/orthopedics in the office in 2 weeks. All questions answered. Understand if there is any issues questions or concerns and contact the office. Physical Exam Narrative: Examination of the right knee dressings on in place clean dry and intact sensations intact light touch distally. Distal pulses are palpable calf soft nontender compartment soft compressible. She is able to wiggle toes plantarflex and dorsiflex ankle sensations intact light touch distally. Normal postoperative swelling and tenderness palpation about the right knee. Urinary Catheter Management: [place]: Cath Placed During This Visit: yes, but has since been removed by the nurse Reason for Continuing Indwelling Catheter: Perioperative Use in Selected Surgeries Urinary Catheter Date of Insertion: 06/19/24 Urinary Catheter Time of Insertion: 08:20 Date Urinary Catheter Removed: 06/20/24 Time Urinary Catheter Discontinued: 06:20 Discharge Data Studies Completed and Pending Completed Studies During Hospitalization Category Date Time Status XR knee RT 1-2V [id number] Routine Exams 06/19/24 10:57 Completed Pending at discharge Category Date Time Status Basic Metabolic Panel AM LABS Lab 06/21/24 04:00 Ordered Basic Metabolic Panel AM LABS Lab 06/22/24 04:00 Ordered Complete Blood Count w/Auto AM LABS Lab 06/21/24 04:00 Ordered Complete Blood Count w/Auto AM LABS Lab 06/22/24 04:00 Ordered Radiology Impressions Knee X-Ray 06/19/24 10:57 Impression: Right knee arthroplasty. Laboratory Results WBC 10.85 10^3/uL (3.29-11.43) 06/20/24 06:11 RBC 3.77 10^6/uL (3.85-5.65) L 06/20/24 06:11 Hgb 11.40 g/dL (11.27-16.99) 06/20/24 06:11 Hct 35.5 % (36-47) L 06/20/24 06:11 MCV 94.2 fl (85-98) 06/20/24 06:11 MCH 30.2 pg (27-33) 06/20/24 06:11 MCHC 32.1 g/dL (30-55) 06/20/24 06:11 RDW 12.7 % (12.1-15.1) 06/20/24 06:11 Plt Count 167 10^3/cmm (157-399) 06/20/24 06:11 MPV 9.9 fL (7.4-10.4) 06/20/24 06:11 Neut % (Auto) 75.0 % 06/20/24 06:11 Lymph % (Auto) 15.8 % 06/20/24 06:11 Thayer % (Auto) 8.6 % 06/20/24 06:11 Eos % (Auto) 0.0 % 06/20/24 06:11 Baso % (Auto) 0.3 % 06/20/24 06:11 Neut # (Auto) 8.15 10^3/uL (1.8-7.7) H 06/20/24 06:11 Lymph # (Auto) 1.7 10^3/uL (0.8-4.8) 06/20/24 06:11 Thayer # (Auto) 0.9 10^3/uL (0.2-0.9) 06/20/24 06:11 Eos # (Auto) 0.0 10^3/uL (0.0-0.8) 06/20/24 06:11 Baso # (Auto) 0.0 10^3/uL (0.0-0.1) 06/20/24 06:11 Nucleated RBC % (auto) 0 % 06/20/24 06:11 Nucleated RBCs # 0.0 /100WBC 06/20/24 06:11 Sodium 136 mmol/L (136-145) 06/20/24 06:11 Potassium 3.9 mmol/L (3.5-5.1) 06/20/24 06:11 Chloride 105 mmol/L (98-107) 06/20/24 06:11 Carbon Dioxide 22 mmol/L (22-29) 06/20/24 06:11 Anion Gap 12.9 (5-19) 06/20/24 06:11 BUN 12 mg/dL (8-23) 06/20/24 06:11 Creatinine 0.5 mg/dL (0.5-0.9) 06/20/24 06:11 GFR Calculation 124.2 mL/min (90-130) 06/20/24 06:11 Glucose 109 mg/dL (65-115) 06/20/24 06:11 Calculated Osmolality 282 mOsm/kg (285-295) L 06/20/24 06:11 Calcium 8.4 mg/dL (8.5-10.5) L 06/20/24 06:11 Total Bilirubin 0.4 mg/dL (0.15-1.2) 05/30/24 16:14 AST 11 U/L (0-32) 05/30/24 16:14 ALT 15 U/L (0-33) 05/30/24 16:14 Alkaline Phosphatase 92 U/L (35-105) 05/30/24 16:14 Total Protein 6.0 g/dL (6.6-8.7) L 05/30/24 16:14 Albumin 4.2 g/dL (3.5-5.2) 05/30/24 16:14 Globulin 1.8 g/dL (1.3-4.6) 05/30/24 16:14 Blood Type A Positive 06/19/24 07:25 Rho(D) Type Rh positive 06/19/24 07:25 Antibody Screen Negative 06/19/24 07:25 Vitals Last Vital Signs Temp 98.4 F 06/20/24 11:45 Pulse 82 06/20/24 11:45 Resp 17 06/20/24 12:06 BP 122/77 06/20/24 11:45 Pulse Ox 96 06/20/24 11:45 O2 Del Method Room Air 06/20/24 11:45 O2 Flow Rate 2 06/19/24 15:04 Discharge Plan Discharge Patient Disposition: Home Health Service Condition: Stable Prescriptions: New methocarbamol 500 mg tablet 500 mg PO TID PRN (Reason: muscle spasms/pain) 14 Days Qty: 42 0RF calcium carbonate-vitamin D3 [Calcium 600 + D(3)] 600 mg-10 mcg (400 unit) tablet 1 tab PO DAILY 30 Days Qty: 30 0RF Continued Excedrin Migraine 250-250-65 mg tablet 1 tab PO Q6H PRN (Reason: Headache) ascorbate calcium (vitamin C) 500 mg tablet 500 mg PO DAILY (DME) ECONOMY knee brace right See Rx Instructions .Route .MEDSUPPLY Qty: 1 0RF Rx Instructions: As directed (DME) bilateral knee medial bait man brace See Rx Instructions .Route .MEDSUPPLY Qty: 1 0RF Rx Instructions: As directed methylphenidate HCl 20 mg tablet 20 mg PO TID 30 Days Qty: 90 0RF Rx Instructions: Do Not fill until 07/02/24 Wakix 17.8 mg tablet See Rx Instructions .ROUTE .COMPLEX Qty: 90 3RF Dose Instruction: TAKE 1 TABLET DAILY Rx Instructions: TAKE 1 TABLET DAILY omeprazole 20 mg tablet,delayed release (DR/EC) 20 mg PO BID gabapentin 600 mg tablet See Rx Instructions .ROUTE .COMPLEX Qty: 270 3RF Dose Instruction: TAKE 1 TABLET THREE TIMES A DAY Rx Instructions: TAKE 1 TABLET THREE TIMES A DAY diclofenac sodium [Arthritis Pain (diclofenac)] 1 % gel See Rx Instructions .ROUTE .COMPLEX Qty: 100 1RF Dose Instruction: apply FOUR grams topically as directed TO single knee, ankle or foot. FOR foot includes sole, TOES and top of foot Rx Instructions: apply FOUR grams topically as directed TO single knee, ankle or foot. FOR foot includes sole, TOES and top of foot venlafaxine 75 mg tablet 75 mg PO BID Qty: 180 3RF propranolol 80 mg capsule,extended release 24 hr See Rx Instructions .ROUTE .COMPLEX Qty: 90 3RF Dose Instruction: TAKE 1 CAPSULE DAILY Rx Instructions: TAKE 1 CAPSULE DAILY fluorouracil 5 % cream See Rx Instructions .ROUTE .COMPLEX Qty: 40 5RF Dose Instruction: APPLY TO THE AFFECTED AREA(S) TWICE DAILY FOR TWO weeks Rx Instructions: APPLY TO THE AFFECTED AREA(S) TWICE DAILY FOR TWO weeks Sunosi 150 mg tablet 150 mg PO DAILY Held meloxicam 15 mg tablet See Rx Instructions .ROUTE .COMPLEX Qty: 30 11RF Hold Instructions: Resume on 07/04/24. Dose Instruction: TAKE 1 TABLET DAILY Rx Instructions: TAKE 1 TABLET DAILY Discontinued tramadol 50 mg tablet 50 mg PO Q6H PRN (Reason: pain) 5 Days Qty: 20 0RF No Action topiramate 100 mg tablet See Rx Instructions .ROUTE .COMPLEX Qty: 60 2RF Dose Instruction: take 1/2 tablet BY MOUTH EVERY DAY Rx Instructions: take 1/2 tablet BY MOUTH EVERY DAY Discharge Orders: Discharge Order (Routine); Ordered 06/20/24 Ordered By: Alec Alatorre Other Ambulatory Orders: DME: Walker (Order) Location: None Selected Ordered By: Alec Alatorre Referrals: [facility] [Outside] [facility] [place] [Outside] Alec Alatorre DO [Physician] - 07/04/24 3:00 pm Discharge Diet: Advance as tolerated Discharge Activity: Limit activity as instructed and Use walker/crutches as instructed Patient Instructions: Oxycodone, Rapid Release (By mouth), Apixaban (By mouth), Acute Wound Care (DC), Total Knee Replacement (GEN), Opioid Safety, Post Anesthesia Care Activity Restrictions/Additional Instructions: Orthopedic discharge instructions: Elinor Dressing--Keep dressing on and dry. After 3 days you can remove some of the dressing and shower. disconnect battery pack when showering. Elinor dressing will stay on until follow up appt in 2 weeks. The battery pack for the dressing will at 5-7 days. Battery pack can be removed and discarded once batteries . Patient may weight-bear as tolerate to the operative extremity Utilize walker as needed Encourage knee range of motion Ice and elevate as needed for pain and swelling Take pain medication as prescribed Take antinausea medication as needed Supplement with calcium vitamin D for bone health and healing Take muscle relaxer as prescribed for muscle spasms Pain medication can cause constipation. take ehap-ggd-hbmcvck stool softeners and or MiraLAX. Take prescribed Eliquis twice daily for the next 14 days for blood clot prevention May supplement for pain with Tylenol jfhz-dcl-cvlsaxi as needed No baths or soaks Follow-up in the orthopedic office in 2 weeks Contact the office for any questions or concerns Discharge Attestations Time Spent in Discharge Care*: less than 30 min Quality Metrics Clinical Quality Measures [ No reported AMI, CVA or VTE this stay] Coding Level of Care Code Acute Code for Chg Fwd Diagnoses Essential hypertension I10 JAMAAL (obstructive sleep apnea) G47.33 Narcolepsy without cataplexy G47.419
== END 2024-06-20 14:40 | disposition home health service (06) ==
LOC: MEDSURG 10:20
PROVIDERS: Physician Assistant; Admitting Provider Student in an Organized Health Care Education/Training Program; PCP Family Medicine; Visit Provider Student in an Organized Health Care Education/Training Program
PROC: 8E0Y0CZ Robotic Assisted Procedure of Lower Extremity, Open Approach (ICD-10-PCS; CPT 27447; principal; 2024-06-19 08:30)
DX: M17.11 Unilateral primary osteoarthritis, right knee (principal); G47.30 Sleep apnea, unspecified; I10 Essential (primary) hypertension; K21.9 Gastro-esophageal reflux disease without esophagitis; G47.33 Obstructive sleep apnea (adult) (pediatric)
CPT/HCPCS: 27447; 20985; 36415; 51702; 73560; 80048; 80053; 85025; 86850; 86900; 97110; 97116; 97161; 97165; 97530; C1776; G0378; J0131; J0690; J1100; J1171; J1885; J2405; J2704; J2710; J2795; J3010; J3370; J3490; J7030; J7120

== ENCOUNTER → 2024-07-04 15:19 | Outpatient (BNVA) | payer MEDICARE, SELFPAY | PROVIDERS: PCP Family Medicine; Visit Provider Physician Assistant | DX: Z98.890 Other specified postprocedural states (principal); Z96.651 Presence of right artificial knee joint | CPT/HCPCS: 73560; 73565; 99024 ==

== ENCOUNTER → 2024-08-10 12:32 | Outpatient (BNVA) | payer MEDICARE, SELFPAY | PROVIDERS: PCP Family Medicine; Visit Provider Specialist | DX: G47.419 Narcolepsy without cataplexy (principal); G43.019 Migraine without aura, intractable, without status migrainosus; G47.33 Obstructive sleep apnea (adult) (pediatric); M25.561 Pain in right knee | CPT/HCPCS: 99213 ==

== ENCOUNTER → 2024-08-15 15:51 | Outpatient (BNVA) | payer MEDICARE, SELFPAY | PROVIDERS: PCP Family Medicine; Visit Provider Physician Assistant | DX: Z96.659 Presence of unspecified artificial knee joint (principal); Z98.890 Other specified postprocedural states | CPT/HCPCS: 73560; 73565; 99024 ==

== ENCOUNTER → 2024-09-20 08:50 | Outpatient (BNVA) | payer MEDICARE, SELFPAY | PROVIDERS: PCP Family Medicine; Visit Provider Physician Assistant | DX: Z96.651 Presence of right artificial knee joint (principal) | CPT/HCPCS: 73560; 73565; 99213 ==

== ENCOUNTER → 2024-11-28 08:05 | Outpatient (BNVA) | payer MEDICARE, SELFPAY | PROVIDERS: PCP Family Medicine; Visit Provider Specialist | DX: G47.419 Narcolepsy without cataplexy (principal); G43.019 Migraine without aura, intractable, without status migrainosus; G47.33 Obstructive sleep apnea (adult) (pediatric); G56.03 Carpal tunnel syndrome, bilateral upper limbs; M25.561 Pain in right knee | CPT/HCPCS: 99213 ==

== ENCOUNTER → 2024-12-19 09:16 | Outpatient (BNVA) | payer MEDICARE, SELFPAY | PROVIDERS: PCP Family Medicine; Visit Provider Student in an Organized Health Care Education/Training Program | DX: Z96.651 Presence of right artificial knee joint (principal) | CPT/HCPCS: 73560; 73565; 99213 ==

== ENCOUNTER → 2025-03-14 11:21 | Outpatient (BNVA) | payer MEDICARE, OTHER, SELFPAY | PROVIDERS: PCP Family Medicine; Visit Provider Specialist | DX: G47.419 Narcolepsy without cataplexy (principal); G43.019 Migraine without aura, intractable, without status migrainosus; G47.33 Obstructive sleep apnea (adult) (pediatric); M25.561 Pain in right knee; G56.03 Carpal tunnel syndrome, bilateral upper limbs | CPT/HCPCS: 99214 ==

== ENCOUNTER → 2025-04-26 15:11 | Outpatient (BNVA) | payer MEDICARE, OTHER, SELFPAY | PROVIDERS: PCP Family Medicine; Visit Provider Family Medicine | DX: R30.0 Dysuria (principal); N39.0 Urinary tract infection, site not specified | CPT/HCPCS: 81000; 87086 ==

== ENCOUNTER → 2025-05-08 13:45 | Outpatient (BNVA) | payer MEDICARE, OTHER, SELFPAY | PROVIDERS: PCP Family Medicine; Referring Provider Specialist; Visit Provider Specialist | DX: R20.0 Anesthesia of skin (principal); R20.2 Paresthesia of skin | CPT/HCPCS: 95886 ==

== ENCOUNTER 2025-06-05 07:11 | Outpatient (CLI) | payer MEDICARE, OTHER, SELFPAY ==
--- NOTE | 2025-06-05 07:15 | MR_ITS ---
WS: [id number] MRI CERVICAL SPINE NONCONTRAST TECHNIQUE: Sagittal T1, T2 and STIR imaging. Axial T2, gradient, and fiesta imaging. CLINICAL INFORMATION: neck pain. paresthesias COMPARISON: CT myelogram 2020 FINDINGS: Straightening of the normal cervical lordosis. ACDF C4-C6. This is stable in appearance compared to 202. New broad-based central and RIGHT paracentral protrusion C3-C4 with moderate central canal stenosis and impingement on the cervical cord. Myelomalacia in the cervical cord at this level. Recommend spine surgery consultation. C2-C3: Mild facet arthropathy. C3-C4: New central and RIGHT paracentral prominent disc protrusion with moderate central canal stenosis and impingement on the cervical cord. Associated myelomalacia in the cervical cord. Moderate facet arthropathy. Moderate RIGHT and mild LEFT bony foraminal narrowing. C4-C5: Postoperative changes ACDF. Moderate facet arthropathy. Spinal canal and foramen are patent. C5-C6: Postoperative changes ACDF. Spinal canal and foramen are patent. Mild facet arthropathy. C6-C7: Postoperative changes ACDF. Moderate LEFT bony foraminal narrowing. Spinal canal is patent. Moderate facet arthropathy. C7-T1: LEFT paracentral protrusion with indentation on the LEFT ventral cervical cord. Spinal canal is patent. Mild LEFT foraminal narrowing. Visualized brain stem structures: Normal. Prevertebral soft tissues: Normal. MR/MR cervical spin wo con* [id number] IMPRESSION: 1. New prominent central and RIGHT paracentral disc protrusion C3-4 with moder ate central canal stenosis and impingement on the cervical cord. Associated mye lomalacia in the cervical cord at this level. Recommend spine surgery consultat ion. 2. Stable ACDF C4-C6. 3. New LEFT paracentral protrusion C7-T1 with slight indentation of the LEFT v entral cervical cord. Mild LEFT foraminal narrowing at this level. 4. Moderate LEFT C6-7 bony foraminal narrowing.
== END 2025-06-05 07:12 | disposition home or self-care (01) ==
LOC: RAD 07:11
PROVIDERS: PCP Family Medicine; Visit Provider Family Medicine
DX: M50.90 Cervical disc disorder, unspecified, unspecified cervical region (principal); R20.0 Anesthesia of skin; R20.2 Paresthesia of skin; M47.892 Other spondylosis, cervical region; M50.21 Other cervical disc displacement, high cervical region; M50.321 Other cervical disc degeneration at C4-C5 level; M43.22 Fusion of spine, cervical region; Z98.1 Arthrodesis status; M50.122 Cervical disc disorder at C5-C6 level with radiculopathy; Z98.890 Other specified postprocedural states; M47.812 Spondylosis without myelopathy or radiculopathy, cervical region; M50.23 Other cervical disc displacement, cervicothoracic region; M48.03 Spinal stenosis, cervicothoracic region; M50.323 Other cervical disc degeneration at C6-C7 level; M53.82 Other specified dorsopathies, cervical region; M46.92 Unspecified inflammatory spondylopathy, cervical region; M50.01 Cervical disc disorder with myelopathy, high cervical region; M48.02 Spinal stenosis, cervical region
CPT/HCPCS: 72141

== ENCOUNTER 2025-06-05 12:19 | Inpatient (IN) | payer MEDICARE, OTHER, SELFPAY ==
[2025-06-05] VITALS (9 sets, daily range): BP systolic 134–175; BP diastolic 71–108; PULSE 61–77; RESP 18–20; TEMP 36.3–37; O2SAT 93–100; BMI 27.4
--- NOTE | 2025-06-05 12:21 | ECG_ITS ---
[facility] Test Date: 2025-06-05 Pat Name: Kelley Cooper Department: Room: Gender: Female Animal Behaviorist: : 1960 Requested By: Dimitri Hobbs Order Number: [id number] Denia MD: Sagar Estrada M.D. Measurements Intervals [place] Rate: 67 P: 71 CT: 150 QRS: 21 QRSD: 88 T: 39 QT: 402 QTc: 425 Interpretive Statements SINUS RHYTHM Compared to ECG 05/19/2021 21:18:00 No significant changes Electronically Signed On 06-06-2025 20:20:57 BUSINESS LOAN PROCESSOR by Sagar Estrada M.D. [email or web address]
--- NOTE | 2025-06-05 12:21 | XR_ITS ---
WS: [id number] Exam: XR chest 1V portable [id number] Date/Time of Exam: 06/05/2025 12:21 PM Reason For Exam: dyspnea/cough Comparison 09/14/2023. The lungs are clear and fully expanded. Normal cardiomediastinal silhouette. Bony structures are intact. Fusion hardware in the lower C-spine. XR/XR chest 1V portable [id number] IMPRESSION: 1. No acute cardiopulmonary finding.
--- NOTE | 2025-06-05 12:21 | CT_ITS ---
WS: [id number] CT HEAD NONCONTRAST HISTORY: Weakness TECHNIQUE: Contiguous axial imaging performed through the brain. Bone and soft tissue windows. Sagittal and coronal reformats reviewed. All CT scans at [facility] use at least one of these dose optimization techniques: automated exposure control; mA and/or kV adjustment per patient size (includes targeted exams where dose is matched to clinical indication); or iterative reconstruction. DLP: 1053.65 mGy.cm COMPARISON: 09/08/2013 No acute intracranial hemorrhage, midline shift or mass effect. Mild bifrontal lobe atrophy. Minimal small vessel changes in the white matter. No prior infarct. Ventricles: Normal size with no hydrocephalus. No inferior displacement of cerebellar tonsils. Paranasal sinuses: As visualized are clear. Mastoid air cells: Well pneumatized. Calvarium and scalp: Skull is intact with no soft tissue edema or swelling. CT/CT head wo con* [id number] IMPRESSION: 1. No acute intracranial hemorrhage or edema. 2. No prior infarct. 3. Very mild bifrontal lobe atrophy.
--- NOTE | 2025-06-05 12:49 | W.ED.WEAKNES ---
HPI - Weakness General: Chief complaint: Weakness Stated complaint: unstable walking x1 month, numbness all over Time Seen by Provider: 06/05/25 12:40 History of Present Illness: 65-year-old female who presents to the emergency room with neck pain with pain shooting down her arms has been going on for several months she had an MRI this morning regarding this to her primary care doctor had ordered. She has previous had problems with her neck she had a CT myelogram back in 2020. She has noticed still progressively will worsening difficulty with walking she is even getting some contractures of her hands has difficult time feeding herself no recent trauma or falls. She is extremely anxious on arrival here. Associated symptoms: Denies chest pain, chills, dysuria or fever(s) Related Data Home Medications ?Medication ?Instructions ?Recorded ?Confirmed rphanfw-jxvuvufbidsfa-yiguaego 250 1 tab PO Q6H PRN Headache 08/31/19 06/09/25 mg-250 mg-65 mg tablet (Excedrin Migraine) ascorbate calcium (vitamin C) 500 500 mg PO DAILY 05/17/23 06/09/25 mg tablet gabapentin 600 mg tablet 600 mg PO TID 06/05/25 06/09/25 meloxicam 15 mg tablet 15 mg PO DAILY 06/05/25 06/09/25 omeprazole 20 mg capsule,delayed 20 mg PO DAILY 06/05/25 06/09/25 release pitolisant 17.8 mg tablet (Wakix) 17.8 mg PO DAILY 06/05/25 06/09/25 propranolol 80 mg capsule,24 80 mg PO DAILY 06/05/25 06/09/25 hr,extended release venlafaxine 75 mg tablet 75 mg PO BID 06/05/25 06/09/25 Previous Rx's ?Medication ?Instructions ?Recorded ECONOMY knee brace right #1 ea 05/17/23 bilateral knee medial job development specialist #1 ea 12/14/23 brace diclofenac sodium 1 % topical gel See Rx Instructions .Route 12/04/24 .COMPLEX #100 grams fluorouracil 5 % topical cream See Rx Instructions .Route 03/13/25 .COMPLEX #40 grams methylphenidate HCl 20 mg tablet 20 mg PO TID 30 days #90 tabs 03/14/25 solriamfetol 150 mg tablet (Sunosi) 150 mg PO DAILY #90 tabs 03/14/25 hydrocodone 5 mg-acetaminophen 325 1 - 2 tab PO .Q4-6H #40 tabs 11/15/25 mg tablet hydrocodone 5 mg-acetaminophen 325 1 - 2 tab PO .Q4-6H #40 tabs 11/15/25 mg tablet hydrocodone 5 mg-acetaminophen 325 1 tab PO Q4H PRN pain #10 tabs 11/15/25 mg tablet Allergies Allergy/AdvReac Type Severity Reaction Status Date / Time No Known Allergies Allergy Verified 06/08/25 07:29 Review of Systems Const: Denies: fever(s) or chills Card: Denies: chest pain Resp: Denies: dyspnea GI: Denies: abdominal pain : Denies: dysuria, urinary frequency or urinary urgency Musc: Denies: neck pain or back pain Skin/Breast: Denies: rash PFSH ED PFSH: Medical History Essential hypertension Persistent migraine aura with stroke self reports history of migraine stroke without correction residual. Medial meniscus tear Narcolepsy takes ritalin and sunosi JAMAAL (obstructive sleep apnea) compliant with CPAP Opioid contract exists Encounter for long-term use of opiate analgesic Cervical disc disease Chronic lumbosacral pain Surgical History H/O tubal ligation History of hysterectomy H/O neck surgery Fusion Family History Other COPD (chronic obstructive pulmonary disease) Cancer Hypertension Denies family history of Clotting disorder Anesthesia complication Bleeding disorder Social History Smoking and tobacco/nicotine status: never used tobacco/nicotine Second hand smoke exposure: No Alcohol intake: current Alcohol intake frequency: 0-2 Drinks per Day Alcohol type: wine Substance/Drug Use: never Physical Exam Const: COMMON NORMALS: no acute distress GENERAL APPEARANCE: cooperative and comfortable ORIENTATION/CONSCIOUSNESS: Yes awake, Yes oriented to person, Yes oriented to place and Yes oriented to time HENMT: COMMON NORMALS: normocephalic, atraumatic and hearing grossly normal bilaterally HEAD & SCALP: normocephalic and atraumatic Resp: COMMON NORMALS: normal respiratory effort, No retractions, No use of accessory muscles and clear to auscultation bilaterally AUSCULTATION: clear to auscultation bilaterally Cardio: COMMON NORMALS: regular rate, regular rhythm and No murmurs present (Cardio) RATE: regular rate RHYTHM: regular rhythm GI: COMMON NORMALS: Soft to palpation and No hepatosplenomegaly present AUSCULTATION: Yes normoactive bowel sounds PALPATION: Yes Soft to palpation, No Tenderness to palpation present (GI), No Guarding due to palpation present (GI) and Yes No hepatosplenomegaly present Extremity: OTHER: Weakness and ataxia bilaterally in upper and lower extremities Neuro: SENSORIUM/ORIENTATION: Yes oriented to person, Yes oriented to place and Yes oriented to time Skin: COMMON NORMALS: no rashes or lesions noted GENERAL SKIN EXAM: no rashes or lesions noted Course Vital Signs: Vital signs: Vital Signs Temperature 98.1 F 06/09/25 12:34 Pulse Rate 71 06/09/25 12:34 Respiratory Rate 15 06/09/25 12:34 Blood Pressure 130/77 06/09/25 12:34 Pulse Oximetry 94 06/09/25 12:34 Oxygen Delivery Me thod Room Air 06/09/25 11:07 Oxygen Flow Rate 8 06/08/25 10:18 MDM - Weakness Medical Decision Making Patient has significant spinal cord impingement causing severe difficulty with ambulation and use of her upper extremities reviewed with Dr. edmond and he concurs will admit the patient for further evaluation and consideration of surgical intervention. Discussed with Dr. Solis as well and advised him that the patient was being admitted based on the MRI that he had done on the patient earlier today. Medical Records I reviewed the patient's medical records. MRI cervical spine 06/05/2025 MR/MR cervical spin wo con* [id number] IMPRESSION: 1. New prominent central and RIGHT paracentral disc protrusion C3-4 with moderate central canal stenosis and impingement on the cervical cord. Associated myelomalacia in the cervical cord at this level. Recommend spine surgery consultation. 2. Stable ACDF C4-C6. 3. New LEFT paracentral protrusion C7-T1 with slight indentation of the LEFT ventral cervical cord. Mild LEFT foraminal narrowing at this level. 4. Moderate LEFT C6-7 bony foraminal narrowing. Lab Data I reviewed the patient's lab results. 06/06/25 04:38 06/06/25 04:38 Radiology Impressions Chest X-Ray 06/05/25 12:21 IMPRESSION: 1. No acute cardiopulmonary finding. Head CT 06/05/25 12:21 IMPRESSION: 1. No acute intracranial hemorrhage or edema. 2. No prior infarct. 3. Very mild bifrontal lobe atrophy. Laboratory Results WBC 6.51 10^3/uL (3.29-11.43) 06/05/25 12:54 RBC 4.47 10^6/uL (3.85-5.65) 06/05/25 12:54 Hgb 13.30 g/dL (11.27-16.99) 06/05/25 12:54 Hct 40.9 % (36-47) 06/05/25 12:54 MCV 91.5 fl (85-98) 06/05/25 12:54 MCH 29.8 pg (27-33) 06/05/25 12:54 MCHC 32.5 g/dL (30-55) 06/05/25 12:54 RDW 12.8 % (12.1-15.1) 06/05/25 12:54 Plt Count 203 10^3/cmm (157-399) 06/05/25 12:54 MPV 10.0 fL (7.4-10.4) 06/05/25 12:54 Neut % (Auto) 61.7 % 06/05/25 12:54 Lymph % (Auto) 28.0 % 06/05/25 12:54 Letcher % (Auto) 7.7 % 06/05/25 12:54 Eos % (Auto) 1.8 % 06/05/25 12:54 Baso % (Auto) 0.6 % 06/05/25 12:54 Neut # (Auto) 4.02 10^3/uL (1.8-7.7) 06/05/25 12:54 Lymph # (Auto) 1.8 10^3/uL (0.8-4.8) 06/05/25 12:54 [place]cher # (Auto) 0.5 10^3/uL (0.2-0.9) 06/05/25 12:54 Eos # (Auto) 0.1 10^3/uL (0.0-0.8) 06/05/25 12:54 Baso # (Auto) 0.0 10^3/uL (0.0-0.1) 06/05/25 12:54 Nucleated RBC % (auto) 0 % 06/05/25 12:54 Nucleated RBCs # 0.0 /100WBC 06/05/25 12:54 Sodium 143 mmol/L (136-145) 06/05/25 12:54 Potassium 4.0 mmol/L (3.5-5.1) 06/05/25 12:54 Chloride 107 mmol/L (98-107) 06/05/25 12:54 Carbon Dioxide 24 mmol/L (22-29) 06/05/25 12:54 Anion Gap 16.0 (5-19) 06/05/25 12:54 BUN 17 mg/dL (8-23) 06/05/25 12:54 Creatinine 0.8 mg/dL (0.5-0.9) 06/05/25 12:54 GFR Calculation 72.0 mL/min (90-130) L 06/05/25 12:54 Glucose 92 mg/dL (65-115) 06/05/25 12:54 Calculated Osmolality 297 mOsm/kg (285-295) H 06/05/25 12:54 Calcium 9.4 mg/dL (8.5-10.5) 06/05/25 12:54 Total Bilirubin 0.4 mg/dL (0.15-1.2) 06/05/25 12:54 AST 14 U/L (0-32) 06/05/25 12:54 ALT 12 U/L (0-33) 06/05/25 12:54 Alkaline Phosphatase 91 U/L (35-105) 06/05/25 12:54 Creatine Kinase 66 U/L (26-192) 06/05/25 12:54 NT-Pro-B Natriuret Pep 86 pg/mL (0-125) 06/05/25 12:54 Total Protein 7.0 g/dL (6.6-8.7) 06/05/25 12:54 Albumin 4.4 g/dL (3.5-5.2) 06/05/25 12:54 Globulin 2.6 g/dL (1.3-4.6) 06/05/25 12:54 All radiology interpretation(s) finalized by discharge Discharge Plan Discharge Patient Disposition: Admitted As Inpatient Admit Provider: Juan Thomas Clinical Impression: Cervical spinal cord compression, Spinal stenosis in cervical region, Essential hypertension Condition: Stable Discharge Diet: Advance as tolerated Discharge Activity: Limit activity as instructed Coding Level of Care Code ED Spreader Operator for Jaskaran Carias
[2025-06-05 13:10] LABS: Hematocrit 40.9 % (36-47); Hemoglobin 13.30 g/dL (11.27-16.99); Mean Corpuscular HGB Conc 32.5 g/dL (30-55); Mean Corpuscular Hemoglobin 29.8 pg (27-33); Mean Corpuscular Volume 91.5 fl (85-98); Nucleated Red Blood Cells % 0 %; Platelet Count 203 10^3/cmm (157-399); Red Blood Count 4.47 10^6/uL (3.85-5.65); White Blood Count 6.51 10^3/uL (3.29-11.43)
--- NOTE | 2025-06-05 13:18 | XRR_ITS ---
PROCEDURE INFORMATION: Exam: XR Cervical Spine Exam date and time: 06/05/2025 2:27 PM Age: 65 years old Clinical indication: Neck pain; Additional info: Plan surgery TECHNIQUE: Imaging protocol: Radiologic exam of the cervical spine. Views: 2 or 3 views. COMPARISON: MR cervical spin wo con* [id number] 06/05/2025 7:22 AM cervical spine series, 01/14/2021 FINDINGS: Bones/joints: AP and lateral views were generated. The spine is visible through C7. Solid interbody fusion is seen from C4 through C6. There is 2.8 mm of C3-C4 degenerative retrolisthesis and approximately 1.6 mm of C2-C3 degenerative retrolisthesis, uncorrected for magnification. Alignment and curvature are otherwise unremarkable. There is mild C3-C4 and moderate C2-C3 disc space narrowing. Moderate disc space narrowing and hypertrophic endplate changes at C6-C7 are also apparent. A ventral fusion plate with anchoring screws is present from C4 through C6 with the hardware appearing appropriately positioned and showing no signs of loosening or fracture. Soft tissues: Paraspinal soft tissues are unremarkable. XR/XR cervical spine 3V* [id number] IMPRESSION: 1. Solid interbody fusion from C4 through C6. 2. Cervical spondylosis at C2-C3, C3-C4, and C6-C7. 3. As compared to prior cervical spine series, the degenerative retrolisthesis at C3-C4 has progressed. No additional change is appreciated.
[2025-06-05 13:21] LABS: Alanine Aminotransferase 12 U/L (0-33); Albumin Level 4.4 g/dL (3.5-5.2); Alkaline Phosphatase 91 U/L (35-105); Anion Gap 16.0 (5-19); Aspartate Amino Transferase 14 U/L (0-32); Blood Urea Nitrogen 17 mg/dL (8-23); Calcium 9.4 mg/dL (8.5-10.5); Carbon Dioxide 24 mmol/L (22-29); Chloride 107 mmol/L (98-107); Globulin 2.6 g/dL (1.3-4.6); Glucose 92 mg/dL (65-115); Osmolality Calculated 297 mOsm/kg (285-295); Potassium 4.0 mmol/L (3.5-5.1); Sodium 143 mmol/L (136-145); Total Protein 7.0 g/dL (6.6-8.7)
--- NOTE | 2025-06-05 14:11 | PM.HP ---
Providers/Chief Complaint Admitting Physician: Juan Thomas MD Primary Care Provider: Kyle Jenkins MD Chief Complaint: unstable walking x1 month, numbness all over History of Present Illness Kelley Cooper is a 65 year old female with pmhx of JAMAAL, UTI, HTN, JAMAAL, CVA, bilateral carpal tunnel, knee replacement, arthritis, meniscus tear, gastritis, narcolepsy, migraine, cervical disc disease, and spinal fusion presenting with complaints of weakness. Patient has worsening spinal stenosis with symptoms of neck pain, headache, progressive difficulty walking, difficulty holding objects, weakness, and shooting pain to her arms bilaterally. Denies falls. Symptoms have been apparent for the last year but have markedly progressed over the last several months. Patient follows Dr. Jenkins, neuroscience, outpatient. In the ED, vitals unremarkable with exception of T97.4. EKG WNL; SR, rate 67. CT head WNL. CXR unremarkable, spinal hardware in place. Cervical spine x-ray performed. See full results. Of note, patient reports that in 2016 she was put on topiramate for s/p a migraine stroke. She had a bad reaction ther first few days and was not herself feeling like she was being detoxed. She continued this med until appx. one week ago when she was able to discontinue per Dr. Jenkins. 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 Family history of mother with degenerative joint disease. Admits 75 pound weight loss in 4 months with compound Tirzepatide. Will admit to Hospitalist Service for further evaluation and treatment. Review of Systems Const: Reports: fatigue; Denies: fever(s) or change in weight Eyes: Denies: change in vision, blurry vision, blind spots, photophobia, eye discomfort, seeing flashes or other (Glaucoma) ENMT: Denies: odynophagia, hoarseness, change in hearing, tinnitus, sinus pain or other (Loss of taste/smell) Card: Denies: chest pain, palpitations, syncope or other (Calf cramps) Resp: Denies: dyspnea, non-productive cough, wheezing or hemoptysis GI: Denies: abdominal pain, nausea, heartburn, diarrhea, constipation or hematochezia : Denies: urinary frequency or urinary incontinence Musc: Denies: neck pain, muscle weakness or other (Muscle pain) Skin/Breast: Denies: rash, new lesions or breast mass Neuro: Reports: numbness in extremities; Denies: headache(s), weakness in extremities, sensory changes, difficulty walking, Slurred speech present, seizure-like activity or other (Sleep Apnea) Psych: Denies: depression, irritability, memory loss, difficulty concentrating or other (Personality changes) Endo: Denies: polyuria, polydipsia, excessive sweating or change in body appearance Arcadio/Lymph: Denies: easy bruising, easy bleeding or enlarged lymph nodes Medications/Allergies Home Medications ?Medication ?Instructions ?Recorded ?Confirmed ?Last Taken ?Type [id number]-[id number]-[id number] 250 1 tab PO Q6H PRN Headache 08/31/19 06/05/25 06/14/24 History mg-250 mg-65 mg tablet (Excedrin Migraine) ECONOMY knee brace right #1 ea 05/17/23 06/05/25 Unknown Rx ascorbate calcium (vitamin C) 500 500 mg PO DAILY 05/17/23 06/05/25 06/05/25 History mg tablet bilateral 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 ea 12/14/23 06/05/25 Unknown Rx brace diclofenac sodium 1 % topical gel See Rx Instructions .Route 12/04/24 06/05/25 Unknown Rx .COMPLEX #100 grams fluorouracil 5 % topical cream See Rx Instructions .Route 03/13/25 06/05/25 Unknown Rx .COMPLEX #40 grams methylphenidate HCl 20 mg tablet 20 mg PO TID 30 days #90 tabs 03/14/25 06/05/25 06/05/25 Rx solriamfetol 150 mg tablet (Sunosi) 150 mg PO DAILY #90 tabs 03/14/25 06/05/25 06/05/25 Rx gabapentin 600 mg tablet 600 mg PO TID 06/05/25 06/05/25 06/05/25 History meloxicam 15 mg tablet 15 mg PO DAILY 06/05/25 06/05/25 06/05/25 History omeprazole 20 mg capsule,delayed 20 mg PO DAILY 06/05/25 06/05/25 06/05/25 History release pitolisant 17.8 mg tablet (Wakix) 17.8 mg PO DAILY 06/05/25 06/05/25 06/05/25 History propranolol 80 mg capsule,24 80 mg PO DAILY 06/05/25 06/05/25 06/05/25 History hr,extended release venlafaxine 75 mg tablet 75 mg PO BID 06/05/25 06/05/25 06/05/25 History Allergies Allergy/AdvReac Type Severity Reaction Status Date / Time No Known Allergies Allergy Verified 06/05/25 12:30 PFSH Acute PFSH: Medical History Essential hypertension Persistent migraine aura with stroke 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 Medial meniscus tear Narcolepsy takes ritalin and sunosi JAMAAL (obstructive sleep apnea) compliant with CPAP Opioid contract exists Encounter for long-term use of opiate analgesic Cervical disc disease Chronic lumbosacral pain Surgical History H/O tubal ligation History of hysterectomy H/O neck surgery Fusion Family History Other COPD (chronic obstructive pulmonary disease) Cancer Hypertension Denies family history of Clotting disorder Anesthesia complication Bleeding disorder Social History Smoking and tobacco/nicotine status: never used tobacco/nicotine Second hand smoke exposure: No Alcohol intake: current Alcohol intake frequency: 0-2 Drinks per Day Alcohol type: wine Substance/Drug Use: never Vitals/I&O/Wt Last Vital Signs Temp 97.4 F L 06/05/25 12:23 Pulse 75 06/05/25 13:23 Resp 18 06/05/25 12:23 BP 175/108 06/05/25 13:23 Pulse Ox 100 06/05/25 13:23 O2 Del Method Room Air 06/05/25 13:23 06/04/25 06/05/25 06/05/25 22:59 06:59 14:59 Intake Total 0 / 0 Balance 0 / 0 Weight last 48 hrs Weight 72.575 kg Data 06/05/25 12:54 06/05/25 12:54 A&P Assessment and plan 1. Essential hypertension: 163/108 EKG -SR, rate 67 Telemetry BP monitoring 2. Migraine: Patient takes Excedrin outpatient Pain management 3. Numbness and tingling in both hands: Gabapentin 4. Spinal stenosis in cervical region: Known cervical disc disease CT myelogram performed in 2020 Cervical spine fusion with hardware in place CXR unremarkable CT head WNL Cervical spine x-ray performed Pain management Plans for decompression tomorrow Progressive difficulty walking, PT/OT 5. Osteoarthritis: Bilateral joint pain and stiffness Gabapentin Pain management PDMP PDMP Reviewed: Not Reviewed Attestations Medical Necessity Statement*: Continue to monitor for pain management and decompression intervention along with general medical management. Diagnoses Essential hypertension I10 Migraine G43.909 Numbness and tingling in both hands R20.0; R20.2 Spinal stenosis in cervical region M48.02 Osteoarthritis M19.90
--- NOTE | 2025-06-05 15:18 | PC.NURSE ---
This nurse assumed care of pt at this time.
[2025-06-05] MEDS: pantoprazole 40 mg SDV IVP (16:48)
--- NOTE | 2025-06-05 16:55 | PC.NURSE ---
Pt refused SCDs at this time and will consider allowing us to place her on telemetry.
[2025-06-05 19:29] LABS: NT Pro B Type Natriuretic Pept 86 pg/mL (0-125)
[2025-06-06] VITALS (10 sets, daily range): BP systolic 99–138; BP diastolic 61–88; PULSE 63–73; RESP 16–22; TEMP 36.4–37.1; O2SAT 94–99; BMI 28.0
[2025-06-06 04:05] LABS: Glucose Urine UA Negative (Normal); Nitrate Urine Negative (Negative); Specific Gravity, Urine 1.016 (1.005-1.030)
[2025-06-06 04:10] LABS: Add Urine Microscopic? YES
[2025-06-06 05:33] LABS: Hematocrit 40.1 % (36-47); Hemoglobin 12.90 g/dL (11.27-16.99); Mean Corpuscular HGB Conc 32.2 g/dL (30-55); Mean Corpuscular Hemoglobin 29.3 pg (27-33); Mean Corpuscular Volume 91.1 fl (85-98); Nucleated Red Blood Cells % 0 %; Platelet Count 200 10^3/cmm (157-399); Red Blood Count 4.40 10^6/uL (3.85-5.65); White Blood Count 5.01 10^3/uL (3.29-11.43)
[2025-06-06 05:59] LABS: Anion Gap 14.7 (5-19); Blood Urea Nitrogen 15 mg/dL (8-23); Calcium 8.8 mg/dL (8.5-10.5); Carbon Dioxide 22 mmol/L (22-29); Chloride 111 mmol/L (98-107); Glucose 88 mg/dL (65-115); Osmolality Calculated 298 mOsm/kg (285-295); Potassium 3.7 mmol/L (3.5-5.1); Sodium 144 mmol/L (136-145)
--- NOTE | 2025-06-06 07:30 | P.CONIM_ITS ---
Providers/Reason For Consult 2 Consulting Physician/Specialty*: Hospitalist Reason for Consult*: Neck pain and myelopathy Attending Physician: Nayla Almendarez, IT PROGRAM AUDITOR, INSURANCE ACCOUNT MANAGER Primary Care Provider: Kyle Jenkins MD History of Present Illness History of Present Illness Kelley Cooper is a 65 year old female whose had a history of weakness in the legs feels like she is floating in the air . MRI revealed that she has a large disc protrusion compressing on the spinal cord with moderate stenosis. She was myelomalacia. Patient states she feels numbness all over her body. She did also state that she has difficulty articulating. She is unable to hold any type of silverware. Unable to button buttons complaining of balance issues. Review of Systems 2 Const: Reports: fatigue; Denies: fever(s) or change in weight Eyes: Denies: change in vision, blurry vision, blind spots, photophobia, eye discomfort, seeing flashes or other (Glaucoma) ENMT: Denies: odynophagia, hoarseness, change in hearing, tinnitus, sinus pain or other (Loss of taste/smell) Card: Denies: chest pain, palpitations, syncope or other (Calf cramps) Resp: Denies: dyspnea, non-productive cough, wheezing or hemoptysis GI: Denies: abdominal pain, nausea, heartburn, diarrhea, constipation or hematochezia : Denies: urinary frequency or urinary incontinence Musc: Denies: neck pain, muscle weakness or other (Muscle pain) Skin/Breast: Denies: rash, new lesions or breast mass Neuro: Reports: numbness in extremities; Denies: headache(s), weakness in extremities, sensory changes, difficulty walking, Slurred speech present, seizure-like activity or other (Sleep Apnea) Psych: Denies: depression, irritability, memory loss, difficulty concentrating or other (Personality changes) Endo: Denies: polyuria, polydipsia, excessive sweating or change in body appearance Arcadio/Lymph: Denies: easy bruising, easy bleeding or enlarged lymph nodes Medications/Allergies Home Medications ?Medication ?Instructions ?Recorded ?Confirmed ?Last Taken ?Type yqhbsrh-irsllgoyscwcj-btpfkbny 250 1 tab PO Q6H PRN He adache 08/31/19 06/05/25 06/14/24 History mg-250 mg-65 mg tablet (Excedrin Migraine) ECONOMY knee brace right #1 ea 05/17/23 06/05/25 Unkn own Rx ascorbate calcium (vitamin C) 500 500 mg PO DAILY 04/2606/05/25 06/05/25 History mg tablet bilateral knee medial 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 car 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 #1 ea 12/14/23 06/05/25 Unknown Rx brace diclofenac sodium 1 % topical gel See Rx Instructions .Route 12/04/24 06/05/25 Unknown Rx .COMPLEX #100 grams fluorouracil 5 % topical cream See Rx Instructions .Ro karen 03/13/25 06/05/25 Unknown Rx .COMPLEX #40 grams methylphenidate HCl 20 mg tablet 20 mg PO TID 30 days #90 tabs 03/14/25 06/05/25 06/05/25 Rx solriamfetol 150 mg tablet (Sunosi) 150 mg PO DAILY #9 0 tabs 03/14/25 06/05/25 06/05/25 Rx gabapentin 600 mg tablet 600 mg PO TID 06/05/2506/0506/05/25 History meloxicam 15 mg tablet 15 mg PO DAILY 06/05/2505/2606/05/25 History omeprazole 20 mg capsule,delayed 20 mg PO DAILY 06/05/25 06/05/25 History release pitolisant 17.8 mg tablet (Wakix) 17.8 mg PO DAILY 06/1906/05/25 06/05/25 History propranolol 80 mg capsule,24 80 mg PO DAILY 06/05/25 1 08/05/24 06/05/25 History hr,extended release venlafaxine 75 mg tablet 75 mg PO BID 06/05/2506/05/25 History Allergies Allergy/AdvReac Type Severity Reaction Status Date / Time No Known Allergies Allergy Verified 06/05/25 12:30 Current Medications Generic Name Dose Route Start Last Admin Trade Name Danielle PRN Reason Stop Dose Admin Acetaminophen 650 mg 06/05/25 16:12 06/06/25 05:00 Acetaminophen 325 Mg Tablet PO 650 mg Q6H PRN Administration Mild/Mod Pain Or Temp >/= 101 Ascorbic Acid 500 mg 06/06/25 05:00 06/06/25 04:59 Ascorbic Acid 500 Mg Tablet PO 500 mg DAILY RAE Administration Gabapentin 600 mg 06/05/25 21:00 06/06/25 05:00 Gabapentin 300 Mg Capsule PO 600 mg TID RAE Administration Sodium Chloride 1,000 mls @ 75 mls/hr 06/05/25 16:15 06/06/25 05:01 Sodium Chloride 0.9% IV 75 mls/hr .[id number] RAE Administration Meloxicam 15 mg 06/06/25 05:00 06/06/25 05:00 Meloxicam 7.5 Mg Tablet PO 15 mg DAILY RAE Administration Methylphenidate HCl 20 mg 06/05/25 21:00 06/06/25 04:59 Methylphenidate 10 Mg Tablet PO 20 mg TID RAE Administration Pantoprazole Sodium 40 mg 06/05/25 16:15 06/05/25 16:48 Pantoprazole 40 Mg Sdv IVP 40 mg Q24H RAE Administration Pantoprazole Sodium 40 mg 06/06/25 05:00 06/06/25 04:[address] 40 Mg Tablet PO 40 mg DAILY RAE Administration Propranolol HCl 40 mg 06/05/25 17:00 06/06/25 05:00 Propranolol 40 Mg Tablet PO 40 mg BID RAE Administration Venlafaxine HCl 75 mg 06/05/25 17:00 06/06/25 05:00 Venlafaxine 75 Mg Tablet PO 75 mg BID RAE Administration PFSH Acute 2 PFSH: Medical History (Updated 06/06/25 @ 07:32 by Oscar Doran DO) Essential hypertension Persistent migraine aura with stroke self reports history of migraine stroke 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 Medial meniscus tear Narcolepsy takes ritalin and sunosi JAMAAL (obstructive sleep apnea) compliant with CPAP Opioid contract exists Encounter for long-term use of opiate analgesic Cervical disc disease Chronic lumbosacral pain Surgical History H/O tubal ligation History of hysterectomy H/O neck surgery Fusion Family History Other COPD (chronic obstructive pulmonary disease) Cancer Hypertension Denies family history of Clotting disorder Anesthesia complication Bleeding disorder Social History Smoking and tobacco/nicotine status: never used tobacco/nicotine Second hand smoke exposure: No Alcohol intake: current Alcohol intake frequency: 0-2 Drinks per Day Alcohol type: wine Substance/Drug Use: never Vitals/I&O/Wt Last Vital Signs Temp 98.1 F 06/06/25 04:00 Pulse 63 06/06/25 06:34 Resp 18 06/06/25 04:00 BP 114/66 06/06/25 04:00 Pulse Ox 99 06/06/25 04:00 O2 Del Method Room Air 06/06/25 07:27 06/05/25 06/06/25 06/06/25 22:59 06:59 14:59 Intake Total 878.333 / 878.333 916.25 / 1794.583 Output Total 500 / 500 450 / 950 Balance 378.333 / 378.333 466.25 / 844.583 Weight last 48 hrs Weight 163 lb 2.273 oz Weight 160 lb Weight 160 lb Physical Exam 2 Narrative: Alert and oriented x 3 Head is normocephalic atraumatic Respirations are intact No evidence of any rashes or infection 5/5 strength in bilateral upper and lowe r extremities Decreased sensation in upper and lower extremities. Data 06/06/25 04:38 06/06/25 04:38 A&P Assessment and plan 1. Stenosis of cervical spine region: Patient has a large C3-4 disc bulge she has cervical stenosis with myelopathy. At this point my plan is to do a C3/4 ACDF. Will plan to do this on Wednesday. Could start steroids if not contraindicated medically Okay to eat from spine standpoint. N.p.o. after midnight on PDMP PDMP Reviewed: Not Reviewed Coding Level of Care Code Acute Code for Chg Fwd Diagnoses Stenosis of cervical spine region M48.02
--- NOTE | 2025-06-06 10:32 | P.PN_ITS ---
Subjective 2 Subjective: Patient awake and alert upon assessment. She does have continued complaints of numbness and difficulty holding things. Admits new headache that originated posterior neck now radiating to behind eyes bilaterally. [place] once added. Morphine on board PRN. Otherwise unremarkable. Medications: Reviewed: Yes Vitals/I&O/Wt Last Vital Signs Temp 98.6 F 06/06/25 07:36 Pulse 64 06/06/25 07:36 Resp 16 06/06/25 07:36 BP 138/88 06/06/25 07:36 Pulse Ox 99 06/06/25 07:36 O2 Del Method Room Air 06/06/25 07:36 06/05/25 06/06/25 06/06/25 22:59 06:59 14:59 Intake Total 878.333 / 878.333 916.25 / 1794.583 Output Total 500 / 500 450 / 950 Balance 378.333 / 378.333 466.25 / 844.583 Weight last 48 hrs Weight 74 kg Weight 72.575 kg Weight 72.575 kg Physical Exam 2 Narrative: Alert and oriented x 3 Head is normocephalic atraumatic Respirations are intact No evidence of any rashes or infection 5/5 strength in bilateral upper and lowe r extremities Decreased sensation in upper and lower extremities. Const: COMMON NORMALS: no acute distress and patient oriented x3 Resp: COMMON NORMALS: normal respiratory effort, No retractions, No use of accessory muscles and clear to auscultation bilaterally AUSCULTATION: clear to auscultation bilaterally Cardio: COMMON NORMALS: regular rate, regular rhythm, S1 normal heart sound present and S2 normal heart sound present RATE: regular rate RHYTHM: r egular rhythm HEART SOUNDS: S1 normal heart sound present and S2 normal heart sound present GI: COMMON NORMALS: Normal to inspection, nondistended, normoactive bowel sounds present and non-tender Extremity: COMMON NORMALS: no pedal edema Neuro: COMMON NORMALS: patient oriented x3 Psych: COMMON NORMALS: mental status grossly normal Data 06/06/25 04:38 06/06/25 04:38 A&P Assessment and plan 1. Stenosis of cervical spine region: C3-4 disc bulge she has cervical stenosis with myelopathy Known cervical disc disease and family hx of DDD. Cervical spine fusion with hardware in place. CT myelogram performed in 2020 CXR unremarkable, CT head WNL, Cervical spine x-ray performed C3/4 ACDF planning for 06/08 NPO at midnight on 06/07 Fall risk precautions PT/OT 2. Essential hypertension: EKG -SR, rate 67 Telemetry BP monitoring 3. Migraine: Patient takes Excedrin outpatient Pain management - Morphine and [place] ONCE on SEP 4. Numbness and tingling in both hands: Gabapentin 5. Osteoarthritis: Bilateral joint pain and stiffness Gabapentin Pain management PDMP PDMP Reviewed: Not Reviewed Attestations 2 Medical Necessity Statement*: Patient to stay for continued hospitalization greater than two midnights for pain management and procedural planning for 06/07/25 > Anterior Cervical Discectomy and Fusion (ACDF). Time Spent in Patient Care: Greater than 35 minutes Diagnoses Stenosis of cervical spine region M48.02 Essential hypertension I10 Migraine G43.909 Numbness and tingling in both hands R20.0; R20.2 Osteoarthritis M19.90 Time Spent (min) 55
[2025-06-06 11:01] LABS: Magnesium 2.1 mg/dL (1.7-2.3)
[2025-06-06] MEDS: HYDROcodone-acetaminophen 7.5-325 mg Tablet 1 TAB PO (11:08)
--- NOTE | 2025-06-06 11:56 | PC.OT ---
OT EVALUATION HELD DUE TO SCHEDULED PATIENT NECK SX ON WEDNESDAY. ALSO, PATIENT DOES NOT WISH TO RECEIVE SKILLED OT UNTIL AFTER SURGERY. LARGE HANDLED UTENSILS AND HANDLED CUP ORDERED TO PROMOTE INDEPENDENCE IN FEEDING TASK PATIENT REPORTS AND IS EXHIBITING DIFFICULTY WITH THIS TASK.
[2025-06-06] MEDS: diphenhydrAMINE 50 mg/mL SDV 1mL 25 MG IVP (17:41)
[2025-06-06] MEDS: methylPREDNISolone sod succ 40 mg/mL INJ IVP (17:42)
[2025-06-06] MEDS: pantoprazole 40 mg SDV IVP (17:42)
[2025-06-07] VITALS (9 sets, daily range): BP systolic 110–151; BP diastolic 62–77; PULSE 70–83; RESP 16–18; TEMP 36.5–36.8; O2SAT 94–98
[2025-06-07] MEDS: methylPREDNISolone sod succ 40 mg/mL INJ IVP ×2 (04:57→17:21)
--- NOTE | 2025-06-07 13:08 | P.PN_ITS ---
Subjective 2 Subjective: Patient awake and alert upon assessment. Headache resolved. Assistive utensils order added. Planning for spinal decompression tomorrow. Medications: Reviewed: Yes Vitals/I&O/Wt Last Vital Signs Temp 97.8 F 06/07/25 11:54 Pulse 78 06/07/25 11:54 Resp 16 06/07/25 11:54 BP 121/71 06/07/25 11:54 Pulse Ox 95 06/07/25 11:54 O2 Del Method Room Air 06/07/25 11:54 06/06/25 06/07/25 06/07/25 22:59 06:59 14:59 Intake Total 1000 / 1480 820 / 2300 1421.25 / 1421.25 Output Total 400 / 850 Balance 1000 / 1030 420 / 1450 1421.25 / 1421.25 Weight last 48 hrs Weight 74.435 kg Weight 77.763 kg Weight 74 kg Weight 72.575 kg Physical Exam 2 Narrative: Alert and oriented x 3 Head is normocephalic atraumatic Respirations are intact No evidence of any rashes or infection 5/5 strength in bilateral upper and lowe r extremities Decreased sensation in upper and lower extremities. Const: COMMON NORMALS: no acute distress and patient oriented x3 Resp: COMMON NORMALS: normal respiratory effort, No retractions, No use of accessory muscles and clear to auscultation bilaterally AUSCULTATION: clear to auscultation bilaterally Cardio: COMMON NORMALS: regular rate, regular rhythm, S1 normal heart sound present and S2 normal heart sound present RATE: regular rate RHYTHM: r egular rhythm HEART SOUNDS: S1 normal heart sound present and S2 normal heart sound present GI: COMMON NORMALS: Normal to inspection, nondistended, normoactive bowel sounds present and non-tender Extremity: COMMON NORMALS: no pedal edema Neuro: COMMON NORMALS: patient oriented x3 Psych: COMMON NORMALS: mental status grossly normal Data 06/06/25 04:38 06/06/25 04:38 A&P Assessment and plan 1. Stenosis of cervical spine region: C3-4 disc bulge she has cervical stenosis with myelopathy Known cervical disc disease and family hx of DDD. Cervical spine fusion with hardware in place. CT myelogram performed in 2020 CXR unremarkable, CT head WNL, Cervical spine x-ray performed C3/4 ACDF planning for 06/08 NPO at midnight Decompression procedure planning Fall risk precautions PT/OT 2. Essential hypertension: EKG -SR, rate 67 Telemetry BP monitoring 3. Migraine: Patient takes Excedrin outpatient Pain management - Morphine and [place] 4. Numbness and tingling in both hands: Gabapentin 5. Osteoarthritis: Bilateral joint pain and stiffness Gabapentin Pain management PDMP PDMP Reviewed: Not Reviewed Attestations 2 Medical Necessity Statement*: Patient requires continued hospitalization for less than 2 additional midnights at this point. She is expected to have spinal decompression with possible DC same day. Continuing pain managment, PT/OT, and supportive measures. Time Spent in Patient Care: 55 Diagnoses Stenosis of cervical spine region M48.02 Essential hypertension I10 Migraine G43.909 Numbness and tingling in both hands R20.0; R20.2 Osteoarthritis M19.90 Time Spent (min) 55
[2025-06-07] MEDS: pantoprazole 40 mg SDV IVP (17:21)
[2025-06-08] VITALS (25 sets, daily range): BP systolic 117–172; BP diastolic 64–91; PULSE 57–80; RESP 12–20; TEMP 36.2–37.2; O2SAT 94–100
[2025-06-08] MEDS: methylPREDNISolone sod succ 40 mg/mL INJ IVP ×2 (03:55→16:14)
--- NOTE | 2025-06-08 07:39 | ANES.PREANE2 ---
Pre-Anesthetic Assessment Height/Weight: Height 5 ft 4 in Weight 164 lb Temp Pulse Resp BP Pulse Ox O2 Del Method 97.5 F L 69 18 151/88 100 Room Air 06/08/25 07:18 06/08/25 07:18 06/08/25 07:18 06/08/25 07:18 06/08/25 07:18 06/08/25 07:18 Preop Diagnosis: Cervical spinal stenosis Operation Date: 06/08/25 08:10 Proposed Procedures p Anterior Cervical Discectomy & Fusion C3-4(Not Applicable) - Oscar Doran, DO Was Beta Wallace taken within 24 hours: Yes Was Clonidine taken within 24 hours: N/A Last intake: Intake Last Liquid Date 06/07/25 Last Liquid Time 22:00 Last Solid Date 06/07/25 Last Solid Time 22:00 Social No alcohol and No tobacco Exam alert, oriented x 3, clear to auscultation bilaterally and regular rate & rhythm Airway Submandibular: within normal limits Cervical ROM: Other (Severe cervical stenosis) Mallampati: Class II Dentition: full Anesthetic Plan ASA status: 3 Anesthesia: General Other: No prior issues with anesthesia NPO since yesterday evening History of cervical spinal stenosis Patient states that she has limited sensation of both upper extremities and cannot even feed herself JAMAAL, no treatment Hypertension on propranolol. 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 12/14/23 06/05/25 Unknown Rx brace diclofenac sodium 1 % topical gel See Rx Instructions .Route 12/04/24 06/05/25 Unknown Rx .COMPLEX #100 grams fluorouracil 5 % topical cream See Rx Instructions .Route 03/13/25 06/05/25 Unknown Rx .COMPLEX #40 grams methylphenidate HCl 20 mg tablet 20 mg PO TID 30 days #90 tabs 03/14/25 06/05/25 06/05/25 Rx solriamfetol 150 mg tablet (Sunosi) 150 mg PO DAILY #90 tabs 03/14/25 06/05/25 06/05/25 Rx gabapentin 600 mg tablet 600 mg PO TID 06/05/25 06/05/25 06/05/25 History meloxicam 15 mg tablet 15 mg PO DAILY 06/05/25 06/05/25 06/05/25 History omeprazole 20 mg capsule,delayed 20 mg PO DAILY 06/05/25 06/05/25 06/05/25 History release pitolisant 17.8 mg tablet (Wakix) 17.8 mg PO DAILY 06/05/25 06/05/25 06/05/25 History propranolol 80 mg capsule,24 80 mg PO DAILY 06/05/25 06/05/25 06/05/25 History hr,extended release venlafaxine 75 mg tablet 75 mg PO BID 06/05/25 06/05/25 06/05/25 History Allergies Allergy/AdvReac Type Severity Reaction Status Date / Time No Known Allergies Allergy Verified 06/08/25 07:29 Current Medications Generic Name Dose Route Start Last Admin Trade Name Toddq PRN Reason Stop Dose Admin Acetaminophen 650 mg 06/05/25 16:12 06/06/25 05:00 Acetaminophen 325 Mg Tablet PO 650 mg On Hold: 06/08/25 07:20 Q6H PRN Administration Comment: Order held by Process Mild/Mod Pain Or Temp >/= 101 Transfer Ascorbic Acid 500 mg 06/06/25 05:00 06/08/25 06:04 Ascorbic Acid 500 Mg Tablet PO 500 mg On Hold: 06/08/25 07:20 DAILY RAE Administration Comment: Order held by Process Transfer Gabapentin 600 mg 06/05/25 21:00 06/08/25 06:05 Gabapentin 300 Mg Capsule PO Not Given On Hold: 06/08/25 07:20 TID RAE Comment: Order held by Process Transfer Sodium Chloride 1,000 mls @ 75 mls/hr 06/05/25 16:15 06/07/25 22:24 Sodium Chloride 0.9% IV Infused On Hold: 06/08/25 07:20 .[id number] RAE Infusion Comment: Order held by Process Transfer Sodium Chloride 1,000 mls @ 30 mls/hr 06/08/25 07:30 06/08/25 07:39 Sodium Chloride 0.9% IV 06/09/25 07:29 30 mls/hr .Q24H RAE Administration Meloxicam 15 mg 06/06/25 05:00 06/08/25 06:06 Meloxicam 7.5 Mg Tablet PO Not Given On Hold: 06/08/25 07:20 DAILY RAE Comment: Order held by Process Transfer Methylphenidate HCl 20 mg 06/05/25 21:00 06/08/25 06:06 Methylphenidate 10 Mg Tablet PO Not Given On Hold: 06/08/25 07:20 TID RAE Comment: Order held by Process Transfer Methylprednisolone Sodium Succinate 40 mg 06/06/25 16:30 06/08/25 03:55 Methylprednisolone Sod Succ 40 Mg/Ml Inj IVP 40 mg On Hold: 06/08/25 07:20 Q12H RAE Administration Comment: Order held by Process Transfer Pantoprazole Sodium 40 mg 06/05/25 16:15 06/07/25 17:21 Pantoprazole 40 Mg Sdv IVP 40 mg On Hold: 06/08/25 07:20 Q24H RAE Administration Comment: Order held by Process Transfer Propranolol HCl 40 mg 06/05/25 17:00 06/08/25 06:06 Propranolol 40 Mg Tablet PO Not Given On Hold: 06/08/25 07:20 BID RAE Comment: Order held by Process Transfer Venlafaxine HCl 75 mg 06/05/25 17:00 06/08/25 06:06 Venlafaxine 75 Mg Tablet PO Not Given On Hold: 06/08/25 07:20 BID RAE Comment: Order held by Process Transfer [facility] Anesthesia Medical History (Updated 06/06/25 @ 07:32 by Oscar Doran DO) Essential hypertension Persistent migraine aura with stroke self reports history of migraine stroke without filler leaf cutter long residual. Medial meniscus tear Narcolepsy takes ritalin and sunosi JAMAAL (obstructive sleep apnea) compliant with CPAP Opioid contract exists Encounter for long-term use of opiate analgesic Cervical disc disease Chronic lumbosacral pain Surgical History (Reviewed 06/05/25 @ 14:12 by Nayla Almendarez, OPERATOR [employer], VIDEO RECORDER MECHANIC) H/O tubal ligation History of hysterectomy H/O neck surgery Fusion Family History Other COPD (chronic obstructive pulmonary disease) Cancer Hypertension Denies family history of Clotting disorder Anesthesia complication Bleeding disorder Social History Smoking and tobacco/nicotine status: never used tobacco/nicotine Second hand smoke exposure: No Alcohol intake: current Alcohol intake frequency: 0-2 Drinks per Day Alcohol type: wine Substance/Drug Use: never Data Anesthesia 06/06/25 04:38 06/06/25 04:38
--- NOTE | 2025-06-08 07:46 | W.PM.OPSUD ---
Surgery/Procedure H&P Update DATE OF PROCEDURE: June 08, 2025 DATE H&P PERFORMED: 06/06/25 H&P UPDATE INFORMATION: I have reviewed H&P completed within last 30 days, I have examined patient prior to procedure and No changes to prior documentation PLANNED PROCEDURE: Operation Date: 06/08/25 08:10 Proposed Procedures p Anterior Cervical Discectomy & Fusion C3-4(Not Applicable) - Oscar Doran, DO
[2025-06-08] MEDS: ceFAZolin 2,000 mg SDV 2000 MG IVP ×2 (07:58→16:14)
[2025-06-08] MEDS: lidocaine-epi 1% 20 mL INJ INJECTION (09:15)
--- NOTE | 2025-06-08 09:35 | ANE.PACU2 ---
Inpatient post-anesthesia follow up: Airway intact: Yes Vital signs: Temperature 97.4 F Pulse Rate 64 Respiratory Rate 17 Blood Pressure 148/75 Pulse Oximetry 99 Oxygen Delivery Me thod [ Room Air Current Rate & Del lauren] Oxygen Delivery Me thod Room Air Oxygen Flow Rate 8 Fraction of Inspir ed Oxygen Hydration adequate: Yes Nausea and vomiting: No Pain level: 1 Mental status: Baseline
--- NOTE | 2025-06-08 09:38 | XR_ITS ---
WS: [id number] Exam: XR cervical spine 3V* [id number] Date/Time of Exam: 06/08/2025 9:38 AM Reason For Exam: OR PICS DLP: AP and lateral C-arm images of the cervical spine are submitted. Images were obtained for intraoperative visualization purposes.
--- NOTE | 2025-06-08 10:20 | PM.OP ---
Operative Report Date of procedure: June 08, 2025 Pre-op diagnosis: Cervical stenosis with myelopathy Post-op diagnosis: same Procedure done: 1. Anterior diskectomy C3/4 2. Insertion of cage C3/4 3. Instrumentation with anterior plate from C3-C4 4. Use of allograft Surgeon: Oscar Doran DO Estimated blood loss (mL): 25 Procedure: 1. Anterior diskectomy C3/4 2. Insertion of cage C3/4 3. Instrumentation with anterior plate from C3-C4 4. Use of allograft The patient was taken to the operating room, where he underwent general endotracheal anesthesia without complications. He was then positioned supine on the operating table, and all areas of impingement were well padded. The arms were carefully padded and tucked at his sides. A roll was placed between the shoulder blades.. An x-ray was done to determine the appropriate level for the skin incision. The entire neck was then sterilely prepped and draped in the usual fashion. Neuromonitoring was attached prior to prepping. A transverse skin incision was made and carried down to the platysma muscle. This was then split in line with its fibers. Blunt dissection was carried down medial to the carotid sheath and lateral to the trachea and esophagus until the anterior cervical spine was visualized. A needle was placed into a disc and an x-ray was done to determine its location. The longus colli muscles were then elevated bilaterally with the electrocautery unit. Self-retaining retractors were placed deep to the longus colli muscle. Attention was brought to the C3/4 level that was confirmed on x-ray. A caspar pin was placed into the C 3 vertebrae and the C4 vertebrae. The disk space was then distracted. The microscope was then brought in. A radical anterior discectomies were performed at C3/4. This included complete removal of the anterior annulus, nucleus, and posterior annulus. The posterior longitudinal ligament was removed as were the posterior osteophytes. Foraminotomies were then accomplished bilaterally. This was done using a high speed fariba, kerrison rongeurs and curretes Once all of this was accomplished, the curved currette was used to check for any residual compression. The central canal was wide open as were the foramen. A high-speed bur was used to remove the cartilaginous endplates above and below the interspace. Bleeding cancellous bone was exposed. The disc space were measured and appropriate size cage were placed sterilely onto the field. Allograft graft was packed into the cages. The cage was then placed and there was good juxtaposition against the bleeding decorticated surfaces and good distraction of each interspace. The [place] pins were removed. Bone wax was used to prevent any bleeding from occurring at the pin sites. Screws were then placed into each of the vertebral bodies at C3 and C4. There was excellent purchase. A final x-ray was done confirming good position of the hardware and Cages. The locking screws were then applied, also with excellent purchase. Following a final copious irrigation, there was good hemostasis and no dural leaks. The carotid pulse was strong. The wounds were then closed in layers using 2-0 Vicryl suture for the platysma muscle, 2-0 Vicryl suture for the subcutaneous tissue, and 4-0 monocryl suture in a subcuticular skin closure. Glue was placed followed by application of a sterile dressing. The drain was hooked to bulb suction. A soft collar was applied. The patient was then carefully returned to the supine position on his hospital bed where he was reversed and extubated and taken to the recovery room having tolerated the procedure well.
--- NOTE | 2025-06-08 12:23 | P.PN_ITS ---
Subjective 2 Subjective: Kelley Cooper is a 65 year old female with pmhx of JAMAAL, UTI, HTN, JAMAAL, CVA, bilateral carpal tunnel, knee replacement, arthritis, meniscus tear, gastritis, narcolepsy, migraine, cervical disc disease, and spinal fusion presenting with complaints of weakness. Patient has worsening spinal stenosis with symptoms of neck pain, headache, progressive difficulty walking, difficulty holding objects, weakness, and shooting pain to her arms bilaterally. Denies falls. Symptoms have been apparent for the last year but have markedly progressed over the last several months. Patient follows Dr. Jenkins, neuroscience, outpatient. In the ED, vitals unremarkable with exception of T97.4. EKG WNL; SR, rate 67. CT head WNL. CXR unremarkable, spinal hardware in place. Cervical spine x-ray performed. See full results. Of note, patient reports that in 2016 she was put on topiramate for s/p a migraine stroke. She had a bad reaction ther first few days and was not herself feeling like she was being detoxed. She continued this med until appx. one week ago when she was able to discontinue per Dr. Jenkins. 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 Family history of mother with degenerative joint disease. Admits 75 pound weight loss in 4 months with compound Tirzepatide. Will admit to Hospitalist Service for further evaluation and treatment. 06/07/25: Patient awake and alert upon a ssessment. Headache resolved. Assistive utensils order added. Planning for spinal decompression tomorrow. 06/08/25: Spinal decompression today. Pl anning for one additional midnight observation and discharge planning for tomorrow. Medications: Reviewed: Yes Vitals/I&O/Wt Last Vital Signs Temp 97.4 F L 06/08/25 11:45 Pulse 65 06/08/25 11:45 Resp 16 06/08/25 11:45 BP 164/91 06/08/25 11:45 Pulse Ox 95 06/08/25 11:45 O2 Del Method Room Air 06/08/25 11:45 O2 Flow Rate 8 06/08/25 10:18 06/07/25 06/08/25 06/08/25 22:59 06:59 14:59 Intake Total 2226.25 / 3887.50 0 / 0 Output Total 50 / 50 Balance 2226.25 / 3887.50 -50 / -50 Weight last 48 hrs Weight 74.389 kg Weight 74.435 kg Weight 77.763 kg Physical Exam 2 Narrative: Alert and oriented x 3 Head is normocephalic atraumatic Respirations are intact No evidence of any rashes or infection 5/5 strength in bilateral upper and lowe r extremities Decreased sensation in upper and lower extremities. Const: COMMON NORMALS: no acute distress and patient oriented x3 Resp: COMMON NORMALS: normal respiratory effort, No retractions, No use of accessory muscles and clear to auscultation bilaterally AUSCULTATION: clear to auscultation bilaterally Cardio: COMMON NORMALS: regular rate, regular rhythm, S1 normal heart sound present and S2 normal heart sound present RATE: regular rate RHYTHM: r egular rhythm HEART SOUNDS: S1 normal heart sound present and S2 normal heart sound present GI: COMMON NORMALS: Normal to inspection, nondistended, normoactive bowel sounds present and non-tender Extremity: COMMON NORMALS: no pedal edema Neuro: COMMON NORMALS: patient oriented x3 Psych: COMMON NORMALS: mental status grossly normal Data 06/06/25 04:38 06/06/25 04:38 A&P Assessment and plan 1. Stenosis of cervical spine region: C3-4 disc bulge she has cervical stenosis with myelopathy Known cervical disc disease and family hx of DDD. Cervical spine fusion with hardware in place. CT myelogram performed in 2020 CXR unremarkable, CT head WNL, Cervical spine x-ray performed C3/4 ACDF planning for 06/08 NPO at midnight Decompression procedure today Fall risk precautions PT/OT 2. Essential hypertension: EKG -SR, rate 67 Telemetry BP monitoring 3. Migraine: Patient takes Excedrin outpatient Pain management - Morphine and [place] 4. Numbness and tingling in both hands: Gabapentin 5. Osteoarthritis: Bilateral joint pain and stiffness Gabapentin Pain management PDMP PDMP Reviewed: Not Reviewed Attestations 2 Medical Necessity Statement*: Continued hospitalization for one additional midnight to monitor for pain management and decompression intervention along with general medical management Diagnoses Stenosis of cervical spine region M48.02 Essential hypertension I10 Migraine G43.909 Numbness and tingling in both hands R20.0; R20.2 Osteoarthritis M19.90 Time Spent (min) 60
[2025-06-08] MEDS: HYDROcodone-acetaminophen 5-325 mg Tablet PO ×3 (12:26→20:20)
[2025-06-09] MEDS: ceFAZolin 2,000 mg SDV 2000 MG IVP ×2 (00:27→08:44)
[2025-06-09] MEDS: HYDROcodone-acetaminophen 5-325 mg Tablet PO ×2 (00:32→08:44)
[2025-06-09 01:00] VITALS: BP 138/77; PULSE 69; RESP 17; TEMP 36.6; O2SAT 94
[2025-06-09 05:49] VITALS: BP 126/69; PULSE 66; RESP 17; TEMP 36.6; O2SAT 96
[2025-06-09 05:55] VITALS: PULSE 70
[2025-06-09 07:02] VITALS: BP 157/82; PULSE 66; RESP 17; TEMP 36.7; O2SAT 99
--- NOTE | 2025-06-09 08:28 | P.PN_ITS ---
Subjective 2 Subjective: Postop day #1 ACDF. Patient having swallowing issues. But overall doing well feels like she is get improvement in her right hand. Drain has minimal output Vitals/I&O/Wt Last Vital Signs Temp 98.1 F 06/09/25 07:02 Pulse 66 06/09/25 07:02 Resp 17 06/09/25 07:02 BP 157/82 06/09/25 07:02 Pulse Ox 99 06/09/25 07:02 O2 Del Method Room Air 06/09/25 07:02 O2 Flow Rate 8 06/08/25 10:18 06/08/25 06/09/25 06/09/25 22:59 06:59 14:59 Intake Total 1072.5 / 1312.5 240 / 1552.5 Balance 1072.5 / 1262.5 240 / 1502.5 Weight last 48 hrs Weight 164 lb Weight 164 lb Physical Exam 2 Narrative: Improvement of symptoms in right hand. Sitting up she is able to swallow soft foods her protein shake but having difficulty with hard foods and capsules. Data 06/06/25 04:38 06/06/25 04:38 A&P Assessment and plan 1. S/P cervical spinal fusion: Postop day #1 C3-4 ACDF. Up with physical therapy DC drain Okay to discharge from spine standpoint. PDMP PDMP Reviewed: Last Reviewed 06/09/25 09:27 EST by Oscar Doran DO Attestations 2 Medical Necessity Statement*: Per primary service Coding Level of Care Code Acute Code for Chg Fwd Diagnoses S/P cervical spinal fusion Z98.1
--- NOTE | 2025-06-09 09:27 | PM.DCS ---
Discharge Providers Date of Admission: 06/05/25 14:00 Date of Discharge: June 09, 2025 Attending Provider at Admission: Juan Thomas MD Attending Provider at Discharge: MYAH Frey, [employer] Primary Care Provider: Kyle Jenkins MD Diagnoses at Discharge Discharge Diagnosis 1. S/P cervical spinal fusion: Details from hospital stay: Status post cervical spinal fusion PT/OT Follow up with Ortho and PCP at discharge Reason for Visit Reason for Visit: unstable walking x1 month, numbness all over Hospital Course Hospital Course Kelley Cooper is a 65 year old female with pmhx of JAMAAL, UTI, HTN, JAMAAL, CVA, bilateral carpal tunnel, knee replacement, arthritis, meniscus tear, gastritis, narcolepsy, migraine, cervical disc disease, and spinal fusion presenting with complaints of weakness. Patient has worsening spinal stenosis with symptoms of neck pain, headache, progressive difficulty walking, difficulty holding objects, weakness, and shooting pain to her arms bilaterally. Denies falls. Symptoms have been apparent for the last year but have markedly progressed over the last several months. Patient follows Dr. Jenkins, neuroscience, outpatient. In the ED, vitals unremarkable with exception of T97.4. EKG WNL; SR, rate 67. CT head WNL. CXR unremarkable, spinal hardware in place. Cervical spine x-ray performed. See full results. Of note, patient reports that in 2016 she was put on topiramate for s/p a migraine stroke. She had a bad reaction ther first few days and was not herself feeling like she was being detoxed. She continued this med until appx. one week ago when she was able to discontinue per Dr. Jenkins. 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 Family history of mother with degenerative joint disease. Admits 75 pound weight loss in 4 months with compound Tirzepatide. Will admit to Hospitalist Service for further evaluation and treatment. 06/07/25: Patient awake and alert upon assessment. Headache resolved. Assistive utensils order added. Planning for spinal decompression tomorrow. 06/08/25: Spinal decompression today. Planning for one additional midnight observation and discharge planning for tomorrow. 06/09/25: Status post cervical spinal fusion, pain management, PT/OT today, education and follow up with Ortho and PCP at discharge Physical Exam Narrative: Alert and oriented x 3 Head is normocephalic atraumatic Respirations are intact No evidence of any rashes or infection 5/5 strength in bilateral upper and lower extremities Decreased sensation in upper and lower extremities. Const: COMMON NORMALS: no acute distress and patient oriented x3 Resp: COMMON NORMALS: normal respiratory effort, No retractions, No use of accessory muscles and clear to auscultation bilaterally AUSCULTATION: clear to auscultation bilaterally Cardio: COMMON NORMALS: regular rate, regular rhythm, S1 normal heart sound present and S2 normal heart sound present RATE: regular rate RHYTHM: regular rhythm HEART SOUNDS: S1 normal heart sound present and S2 normal heart sound present GI: COMMON NORMALS: Normal to inspection, nondistended, normoactive bowel sounds present and non-tender Extremity: COMMON NORMALS: no pedal edema Neuro: COMMON NORMALS: patient oriented x3 Psych: COMMON NORMALS: mental status grossly normal Discharge Data Studies Completed and Pending Completed Studies During Hospitalization Category Date Time Status CT head wo con* [id number] Stat Cat Scan 06/05/25 12:21 Completed XR cervical spine 3V* [id number] Routine Exams 06/08/25 09:38 Completed XR cervical spine 3V* [id number] Stat Exams 06/05/25 13:18 Completed XR chest 1V portable [id number] Stat Exams 06/05/25 12:21 Completed Pending at discharge Category Date Time Status C-arm Fluoroscopy [id number] Routine Exams 06/08/25 08:07 Taken Radiology Impressions Chest X-Ray 06/05/25 12:21 IMPRESSION: 1. No acute cardiopulmonary finding. Head CT 06/05/25 12:21 IMPRESSION: 1. No acute intracranial hemorrhage or edema. 2. No prior infarct. 3. Very mild bifrontal lobe atrophy. Laboratory Results WBC 5.01 10^3/uL (3.29-11.43) 06/06/25 04:38 RBC 4.40 10^6/uL (3.85-5.65) 06/06/25 04:38 Hgb 12.90 g/dL (11.27-16.99) 06/06/25 04:38 Hct 40.1 % (36-47) 06/06/25 04:38 MCV 91.1 fl (85-98) 06/06/25 04:38 MCH 29.3 pg (27-33) 06/06/25 04:38 MCHC 32.2 g/dL (30-55) 06/06/25 04:38 RDW 13.2 % (12.1-15.1) 06/06/25 04:38 Plt Count 200 10^3/cmm (157-399) 06/06/25 04:38 MPV 10.3 fL (7.4-10.4) 06/06/25 04:38 Neut % (Auto) 47.5 % 06/06/25 04:38 Lymph % (Auto) 40.3 % 06/06/25 04:38 [place] % (Auto) 8.0 % 06/06/25 04:38 Eos % (Auto) 2.8 % 06/06/25 04:38 Baso % (Auto) 1.2 % 06/06/25 04:38 Neut # (Auto) 2.38 10^3/uL (1.8-7.7) 06/06/25 04:38 Lymph # (Auto) 2.0 10^3/uL (0.8-4.8) 06/06/25 04:38 [place] # (Auto) 0.4 10^3/uL (0.2-0.9) 06/06/25 04:38 Eos # (Auto) 0.1 10^3/uL (0.0-0.8) 06/06/25 04:38 Baso # (Auto) 0.1 10^3/uL (0.0-0.1) 06/06/25 04:38 Nucleated RBC % (auto) 0 % 06/06/25 04:38 Nucleated RBCs # 0.0 /100WBC 06/06/25 04:38 Sodium 144 mmol/L (136-145) 06/06/25 04:38 Potassium 3.7 mmol/L (3.5-5.1) 06/06/25 04:38 Chloride 111 mmol/L (98-107) H 06/06/25 04:38 Carbon Dioxide 22 mmol/L (22-29) 06/06/25 04:38 Anion Gap 14.7 (5-19) 06/06/25 04:38 BUN 15 mg/dL (8-23) 06/06/25 04:38 Creatinine 0.8 mg/dL (0.5-0.9) 06/06/25 04:38 GFR Calculation 72.0 mL/min (90-130) L 06/06/25 04:38 Glucose 88 mg/dL (65-115) 06/06/25 04:38 Calculated Osmolality 298 mOsm/kg (285-295) H 06/06/25 04:38 Calcium 8.8 mg/dL (8.5-10.5) 06/06/25 04:38 Magnesium 2.1 mg/dL (1.7-2.3) 06/06/25 10:24 Total Bilirubin 0.4 mg/dL (0.15-1.2) 06/05/25 12:54 AST 14 U/L (0-32) 06/05/25 12:54 ALT 12 U/L (0-33) 06/05/25 12:54 Alkaline Phosphatase 91 U/L (35-105) 06/05/25 12:54 Creatine Kinase 66 U/L (26-192) 06/05/25 12:54 NT-Pro-B Natriuret Pep 86 pg/mL (0-125) 06/05/25 12:54 Total Protein 7.0 g/dL (6.6-8.7) 06/05/25 12:54 Albumin 4.4 g/dL (3.5-5.2) 06/05/25 12:54 Globulin 2.6 g/dL (1.3-4.6) 06/05/25 12:54 Urine Color Yellow (Yellow) 06/06/25 03:55 Urine Appearance Clear (CLEAR) 06/06/25 03:55 Urine pH 7.0 (5-7) 06/06/25 03:55 Ur Specific [place] 1.016 (1.005-1.030) 06/06/25 03:55 Urine Protein Negative (Negative) 06/06/25 03:55 Urine Glucose (UA) Negative (Normal) 06/06/25 03:55 Urine Ketones Negative (Negative) 06/06/25 03:55 Urine Blood Negative (Negative) 06/06/25 03:55 Urine Nitrate Negative (Negative) 06/06/25 03:55 Urine Bilirubin Negative (Negative) 06/06/25 03:55 Urine Urobilinogen 0.2 mg/dL (Negative) 06/06/25 03:55 Ur Leukocyte Esterase Negative (Negative) 06/06/25 03:55 Urine RBC 0-2 /hpf (0-2) 06/06/25 03:55 Urine WBC 0-5 /hpf (0-5) 06/06/25 03:55 Ur Squamous Epith Cells 0-5 /hpf (0-5) 06/06/25 03:55 Amorphous Sediment Not Reportable 06/06/25 03:55 Urine Bacteria None seen /hpf (NONE) 06/06/25 03:55 Hyaline Casts 0.81 /lpf 06/06/25 03:55 Vitals Last Vital Signs Temp 98.1 F 06/09/25 07:02 Pulse 66 06/09/25 07:02 Resp 17 06/09/25 07:02 BP 157/82 06/09/25 07:02 Pulse Ox 99 06/09/25 07:02 O2 Del Method Room Air 06/09/25 07:02 O2 Flow Rate 8 06/08/25 10:18 Discharge Plan Discharge Patient Disposition: Home Condition: Stable Prescriptions: New hydrocodone-acetaminophen 5-325 mg tablet 1 - 2 tab PO .Q4-6H Qty: 40 0RF hydrocodone-acetaminophen 5-325 mg tablet 1 - 2 tab PO .Q4-6H Qty: 40 0RF Continued Excedrin Migraine 250-250-65 mg tablet 1 tab PO Q6H PRN (Reason: Headache) ascorbate calcium (vitamin C) 500 mg tablet 500 mg PO DAILY (DME) ECONOMY knee brace right See Rx Instructions .Route .MEDSUPPLY Qty: 1 0RF Rx Instructions: As directed (DME) 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 FOR foot includes sole, TOES and top of foot Rx Instructions: Apply FOUR grams topically DIRECTED TO single knee, ankle or foot. FOR foot includes sole, TOES and top of foot. fluorouracil 5 % cream See Rx Instructions .ROUTE .COMPLEX Qty: 40 5RF Dose Instruction: APPLY TO THE AFFECTED AREA(S) TWICE DAILY FOR TWO weeks Rx Instructions: APPLY TO THE AFFECTED AREA(S) TWICE DAILY FOR TWO weeks gabapentin 600 mg tablet 600 mg PO TID venlafaxine 75 mg tablet 75 mg PO BID meloxicam 15 mg tablet 15 mg PO DAILY propranolol 80 mg capsule,extended release 24 hr 80 mg PO DAILY omeprazole 20 mg capsule,delayed release(DR/EC) 20 mg PO DAILY Wakix 17.8 mg tablet 17.8 mg PO DAILY Bog Cutter OK for DC: Orthopedics Discharge Order = DC NOW: Discharge Order (Routine); Ordered 06/09/25 Ordered By: Nayla Almendarez Referrals: Oscar Doran DO [Physician, Orthopedics] - 2 weeks Referral Note: We have notified your physician's clinic of the need for a follow-up appointment to be scheduled. If you have not heard from them within the next 2 business days, please call them directly. Kyle Jenkins MD [Primary Care Provider, Family Practice] - 4-7 days Referral Note: We have notified your physician's clinic of the need for a follow-up appointment to be scheduled. If you have not heard from them within the next 2 business days, please call them directly. Discharge Diet: Advance as tolerated Discharge Activity: Limit activity as instructed Patient Instructions: Hydrocodone/Acetaminophen (By mouth), Acute Wound Care (DC), Anterior Cervical Discectomy (DC), Opioid Safety, Post Anesthesia Care, Patient Portal & Christi Instructions Activity Restrictions/Additional Instructions: Thank you for choosing [facility] for your care! The following is a list of instructions, from your provider, to follow upon your discharge to ensure you have the optimal recovery from your recent injury or surgery. Anterior Cervical Discectomy and Fusion: What to Expect at Home Your Recovery Follow-up care is a wang part of your treatment and safety. Be sure to make and go to all appointments, and call your doctor if you are having problems. If you do not already have a follow-up appointment made, call office in the next 1-3 days to make follow up appointment for 2 weeks at [phone]. It is also a good idea to know your test results and keep a list of the medicines you take. You can expect your neck to feel stiff or sore after surgery. This should improve in the weeks after surgery. But it may take 4 to 6 months for you to get better completely. You may have trouble sitting or standing in one position for very long and may need pain medicine in the weeks after your surgery. It may take 4 to 6 weeks to get back to your usual activities, but it may depend on what kind of surgery you had. Your throat will feel sore and it may be difficult to swallow for the first 3 days after your surgery. As long as you can get liquids down without difficulty, this should slowly improve, otherwise call our office or seek medical attention if it becomes increasingly difficult to get anything down including liquids. Avoid hot liquids for first 3-5 days. Soothing foods/liquids such as jello, pudding, and luke warm soups are recommended until swallowing improves. Staying elevated will also help, it's advised you keep propped up at while sleeping to help reduce the swelling. You may use an ice pack directly on your incision or around it on the front of your neck, using a cloth to protect your skin; and a heating pad to the back of your neck as needed. Do not use over the counter anti-inflammatory medications (Ibuprofen, Motrin, Aleve, Advil, etc) Taking these meds after having a fusion can delay fusion rates, we recommend you avoid them for the first 3 [address] after your surgery[address] Dr. Doran may advise you to work with a physical therapist to strengthen the muscles around your neck and back - this will be discussed at your follow - up appointments. The pain or numbness you were having in your arms before surgery should get better or go away completely. This care sheet gives you a general idea about how long it will take for you to recover. But each person recovers at a different pace. Follow the steps below to get better as quickly as possible. How can you care for yourself at home? Activity ? Rest when you feel tired. Getting enough sleep will help you recover. ? Try to walk each day. Start by walking a little more than you did the day before. Bit by bit, increase the amount you walk. Walking boosts blood flow and helps prevent pneumonia and constipation. Walking may also decrease your muscle soreness after surgery. ? No lifting anything that is more that 5 pounds. This may include heavy grocery bags and milk containers, a heavy briefcase or backpack, cat litter or dog food bags, a child, or a vacuum mold sheet cleaner. ? Avoid strenuous activities, such as bicycle riding, jogging, weightlifting, or aerobic exercise, until your doctor says it is okay. ? Do not drive until your follow-up visit after your surgery, or until your doctor says it isokay. ? Avoid taking long car trips for 2 to 4 weeks after surgery. Your neck may become tired and painful from sitting too long in one position. ? You will probably need to take 4 to 6 weeks off from work. It depends on the type of work you do and how you feel. ? You may have sex as soon as you feel able, but avoid positions that put stress on your neck or cause pain. Diet ? You can eat your normal diet. If your stomach is upset, try bland, low-fat foods like plain rice, broiled chicken, toast, and yogurt ? Drink plenty of fluids. If you have kidney, heart, or liver disease and have to limit fluids, talk with your doctor before you increase the amount of fluids you drink. ? You may notice that your bowel movements are not regular right after your surgery. This is common. Try to avoid constipation and straining with bowel movements. You may want to take a fiber supplement every day. If you have not had a bowel movement after a couple of days, ask your doctor about taking a mild laxative. Medicines ? Take pain medicines exactly as directed. 1. If Dr. Doran gave you a prescription medicine for pain, take lt as prescribed. 2. Do not take two or more pain medicines at the same time unless the doctor told you to. Many pain medicines have acetaminophen, which is Tylenol. Too much acetaminophen {Tylenol) can be harmful. 3. If you think your pain pill is making you sick to your stomach: 4. Take your pills after meals (unless your doctor has told you not to). 5. Ask your Dr. for a different pain pill. Incisioncare ? Remove your dressing 48hours after your surgery. Ok to shower and get the incision wet. Do not overtly wash your incision. When done, pad dry, leave open to air thereafter. Avoid creams and ointments directly on your incision. ? Your sutures in the incision will dissolve and fall out on their own. ? Keep the area clean and dry. You may cover it with a gauze bandage if it weeps or rubs against clothing; if you choose to do this, change the dressing everyday. Other instructions ? Use a heating pad, hot water bottle, or gentle massage on your back to reduce stiffness. Avoid putting heat on your incision When should you call for help? ? Call 911 anytime you think you may need emergency care. For example, call if: ? You pass out (lose consciousness). ? You have sudden chest pain and shortness of breath, or you cough upblood. ? You cannot swallow. ? You have severe pain in your neck or back. ? Call your Dr. or seek immediate medical care if: ? You have pain that does not get better after you take pain pills. ? You have loose stitches, or your incision comes open. ? You have blood or fluid draining from the incision. ? You have signs of infection, such as: 1. Increased pain, swelling, warmth, or redness. 2. Red streaks leading from the site. 3. Pus draining from the site. 4. Swollen lymph nodes in your neck or armpits. 5. A fever. ? You have severe pain in your arms. ? You have new or increased weakness or numbness in your arms. ? Watch closely for any changes in your health, and be sure to contact your doctor if: ? You do not have a bowel movement after taking a laxative. Patient's Health Concerns: Difficulty swallowing post intubation. Plan of Treatment: Status post cervical spinal fusion PT/OT Follow up with Ortho and PCP at discharge Discharge Attestations Time Spent in Discharge Care*: greater than 30 min Specific Discharge Activities: educating patient, educating and/or supporting family/caregiver, discussing with pcp/other providers, discussing with case technician/social workers/dc planners, documenting/other paperwork and evaluating patient/reviewing data Status at Discharge: Cognitive status at discharge: cognitively intact, Behavioral status at discharge: cooperative, Functional status at discharge: other assisted ambulation, Overall status at discharge: patient is back to baseline Quality Metrics Clinical Quality Measures [ No reported AMI, CVA or VTE this stay] Coding Level of Care Code 95179 Total time (in minutes) for Discharge: 60 Diagnoses S/P cervical spinal fusion Z98.1 Time Spent (min) 60
[2025-06-09 11:07] VITALS: BP 130/77; PULSE 71; RESP 15; TEMP 36.7; O2SAT 94
[2025-06-09 12:34] VITALS: BP 130/77; PULSE 71; RESP 15; TEMP 36.7; O2SAT 94
== END 2025-06-09 12:00 | disposition home or self-care (01) | DRG 472 ==
LOC: ER 13:48 → MEDSURG 14:00
PROVIDERS: Orthopaedic Surgery; Admitting Provider Family Medicine; Emergency Provider Family Medicine; PCP Family Medicine; Visit Provider Clinical Nurse Specialist Acute Care
PROC: 0RB30ZZ Excision of Cervical Vertebral Disc, Open Approach (ICD-10-PCS; CPT 22551; principal; 2025-06-08 08:10)
DX: M48.02 Spinal stenosis, cervical region (principal); G95.89 Other specified diseases of spinal cord; G99.2 Myelopathy in diseases classified elsewhere; G47.33 Obstructive sleep apnea (adult) (pediatric); I10 Essential (primary) hypertension; M19.90 Unspecified osteoarthritis, unspecified site; G47.419 Narcolepsy without cataplexy; G89.29 Other chronic pain; M54.50 Low back pain, unspecified; G43.909 Migraine, unspecified, not intractable, without status migrainosus; Z98.1 Arthrodesis status; Z79.82 Long term (current) use of aspirin; Z87.440 Personal history of urinary (tract) infections; Z86.73 Personal history of transient ischemic attack (TIA), and cerebral infarction without residual deficits
CPT/HCPCS: 36415; 70450; 71045; 72040; 72141; 76000; 80048; 80053; 81001; 82550; 83735; 83880; 85025; 93005; 97110; 97116; 97161; 97166; 99285; A4649; C1713; C9358; C9359; J0131; J0330; J0690; J1100; J1171; J1200; J1885; J2405; J2470; J2704; J2919; J3010; J3490; J7030; J7120; J9999

== ENCOUNTER → 2025-06-12 12:43 | Outpatient (BNVA) | payer MEDICARE, OTHER, SELFPAY | PROVIDERS: PCP Family Medicine; Visit Provider Specialist | DX: G47.419 Narcolepsy without cataplexy (principal); G43.019 Migraine without aura, intractable, without status migrainosus; G47.33 Obstructive sleep apnea (adult) (pediatric) | CPT/HCPCS: 99214 ==

== ENCOUNTER → 2025-06-26 14:19 | Outpatient (BNVA) | payer MEDICARE, OTHER, SELFPAY | PROVIDERS: PCP Family Medicine; Visit Provider Orthopaedic Surgery | DX: Z98.890 Other specified postprocedural states (principal); Z98.1 Arthrodesis status | CPT/HCPCS: 99024 ==

== ENCOUNTER → 2025-06-27 11:00 | Outpatient (BNVA) | payer MEDICARE, OTHER, SELFPAY | PROVIDERS: PCP Family Medicine; Visit Provider Student in an Organized Health Care Education/Training Program | DX: Z96.651 Presence of right artificial knee joint (principal); Z47.1 Aftercare following joint replacement surgery | CPT/HCPCS: 73560; 73565; 99213 ==

== ENCOUNTER → 2025-07-24 15:38 | Outpatient (BNVA) | payer MEDICARE, OTHER, SELFPAY | PROVIDERS: PCP Family Medicine; Visit Provider Orthopaedic Surgery | DX: Z98.890 Other specified postprocedural states (principal) | CPT/HCPCS: 72040; 99024 ==